=== PATIENT | female | born 1950 | race American Indian/Alaskan Native ===

== ENCOUNTER 2016-05-21 19:14 | Emergency (ER) | payer MEDICARE ==
[2016-05-21 20:03] LABS: Basophils % (Auto) 0.3 % (0.0-1.8); Eosinophils % (Auto) 1.8 % (0.0-4.3); Hematocrit 37.2 % (30.3-42.9); Hemoglobin 11.8 gm/dl (10.1-14.3); Mean Corpuscular HGB Conc 32 % (30-34); Mean Corpuscular Hemoglobin 30 pg (28-32); Mean Corpuscular Volume 94 fl (79-97); Platelet Count 255 K/mm3 (140-440); Red Blood Count 3.94 M/mm3 (3.65-5.03); Red Cell Distribution Width 13.7 % (13.2-15.2); White Blood Count 11.5 K/mm3 (4.5-11.0)
[2016-05-21 20:17] LABS: BUN/Creatinine Ratio 14.16; Calcium 9.2 mg/dL (8.4-10.2); Chloride 103.4 mmol/L (98-107); Potassium 4.7 mmol/L (3.6-5.0)
--- NOTE | 2016-05-21 23:06 | Cat Scan Report ---
FINAL REPORT PROCEDURE: CT HEAD/BRAIN WO CON TECHNIQUE: Computerized tomography of the head was performed without contrast material. HISTORY: Weakness COMPARISON: 05/29/2015 FINDINGS: Skull and scalp: Normal. Paranasal sinuses: Mild opacification of the ethmoid sinuses.. Ventricles and subarachnoid spaces: Normal. Cerebrum: No evidence of hemorrhage, acute infarction or mass. Minimal atrophy is noted. 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 Cerebellum and brainstem: No evidence of hemorrhage, acute infarction or mass. Vasculature: Normal. Comments: None. IMPRESSION: There is no evidence of an acute intracranial process. Minimal atrophy.
[2016-05-22 00:11] LABS: Bilirubin,Urine NEG (Negative); Blood,Urine NEG (Negative); Ketones,Urine NEG (Negative); Leukocyte Esterase,Urine NEG (Negative); Nitrite,Urine NEG (Negative); Urobilinogen,Urine < 2.0 mg/dL (<2.0); WBC,Urine < 1.0 /HPF (0.0-6.0)
--- NOTE | 2016-05-22 00:48 | Emergency Department Report ---
- General Chief complaint: Weakness Stated complaint: WEAKNESS IN LEGS Time Seen by Provider: 05/21/16 23:23 Source: patient Mode of arrival: Ambulatory Limitations: No Limitations - History of Present Illness Initial comments: 66-year-old female with a past medical history of COPD, TIA, hypertension, G6PD deficiency, and high cholesterol presents to the hospital complaining of dizziness and bilateral low extremity pain and weakness. Patient states the dizziness is chronic and ongoing. She dances a spinning sensation more lying supine. She has been admitted here in the past for the same and was diagnosed with vestibular migraine by the neurologist. Patient states she is currently receiving outpatient neurology evaluation but is waiting to be able to afford the outpatient upright MRI since she is unable to lay supine for an extended time due to dizzy/spinning sensation. For the past 3 days patient has been experiencing lower back pain, bilateral knee pain, feel like her legs were giving out while ambulating. Patient has a history of previous back injury with right-sided sciatica. Patient denies numbness or paresthesias to lower extremities but states she has intermittent upper extremity paresthesias. Patient also expressed that she is anxious due to several events in her life. Patient has chronic bladder incontinence since she receives her hysterectomy reports no change. Pain to lower back and bilateral knees described as aching and worse with movement and palpation. Moderate in intensity. PMD: non currently - Related Data Home Medications Medication Instructions Recorded Confirmed Last Taken Valsartan [Diovan] 80 mg PO DAILY 05/29/15 09/17/15 Unknown Previous Rx's Medication Instructions Recorded Last Taken Type Fluconazole [Diflucan TAB] 150 mg PO ONCE #2 tablet 09/17/15 Unknown Rx Pantoprazole [Protonix] 40 mg PO QDAY #30 tablet 10/30/15 Unknown Rx Acetaminophen [Acetaminophen TAB] 500 mg PO Q4HR PRN #30 tablet 05/22/16 Unknown Rx Allergies Allergy/AdvReac Type Severity Reaction Status Date / Time acetaminophen [From Percocet] Allergy Anaphylaxis Verified 05/29/15 13:24 aspirin Allergy Rash Verified 05/29/15 13:24 ciprofloxacin [From Cipro] Allergy Dizziness Verified 05/29/15 13:24 ciprofloxacin HCl Allergy Dizziness Verified 05/29/15 13:24 [From Cipro] levofloxacin [From Levaquin] Allergy Dizziness Verified 10/30/15 11:38 morphine Allergy Itching Verified 05/29/15 13:24 oxycodone HCl [From Percocet] Allergy Anaphylaxis Verified 05/29/15 13:24 Sulfa (Sulfonamide Allergy Seizure Verified 05/29/15 13:24 Antibiotics) ED Review of Systems ROS: Stated complaint: WEAKNESS IN LEGS Other details as noted in HPI Comment: All other systems reviewed and negative Other: Constitutional: No fevers chills Eyes: No eye pain visual changes ENT: No ear pain or throat pain Neck: Denies pain Respiratory: Denies cough wheezing shortness of breath Cardiovascular: Denies chest pain, palpitations, syncope GI: Denies abdominal pain, nausea, vomiting, diarrhea : Denies dysuria Musculoskeletal: as per hpi Skin: Denies rash, lesions, erythema Neurologic: Denies headache Psychiatric: Denies suicidal ideation, hallucinations ED Past Medical Hx - Past Medical History Hx Hypertension: Yes Hx CVA: Yes (TIA) Hx Congestive Heart Failure: No Hx Diabetes: No Hx Renal Disease: Yes Hx Asthma: No Hx COPD: Yes Additional medical history: glaucoma. high cholesterol. G6PD. heart murmur/ MVP. OBESITY - Surgical History Hx Cholecystectomy: Yes Additional Surgical History: Hysterectomy. - Social History Smoking Status: Former Smoker Substance Use Type: None - Medications Home Medications: Home Medications Medication Instructions Recorded Confirmed Last Taken Type Valsartan [Diovan] 80 mg PO DAILY 05/29/15 09/17/15 Unknown History Fluconazole [Diflucan TAB] 150 mg PO ONCE #2 tablet 09/17/15 Unknown Rx Pantoprazole [Protonix] 40 mg PO QDAY #30 tablet 10/30/15 Unknown Rx Acetaminophen [Acetaminophen TAB] 500 mg PO Q4HR PRN #30 tablet 05/22/16 Unknown Rx ED Physical Exam - General Limitations: No Limitations - Other Other exam information: General: No limitations, patient is alert in no acute distress Head exam: Atraumatic, normocephalic Eyes exam: Normal appearance ENT: Moist mucous membrane, normal oropharynx Neck exam: Normal inspection, full range of motion, no meningismus nontender Respiratory exam: Clear to auscultation bilateral, no wheezes, rales, crackles Cardiovascular: Normal rate and rhythm, normal heart sounds Abdomen: Soft, nondistended, and nontender, with normal bowel sounds, no rebound, or guarding Extremity: Full range of motion normal inspection no deformity Back: Normal Inspection, full range of motion, mild generalized lower back tenderness Neurologic: Alert, oriented x3, cranial nerves intact, patient has pain with extension of the right leg at the hip. However she is able to hold up each leg against gravity and has equal foot dorsiflexion. Sensation grossly intact and equal. 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 Patient seems to ambulate in the ER without difficulty no unsteady gait noted the patient states she feels like her legs are going to buckle Psychiatric: normal affect, normal mood Skin: Warm, dry, intact ED Course Vital Signs 05/21/16 05/21/16 05/22/16 19:21 23:57 02:07 Temperature 98.9 F Pulse Rate 62 78 86 Respiratory 18 18 18 Rate Blood Pressure 174/110 Blood Pressure 160/85 143/64 [Left] O2 Sat by Pulse 98 98 99 Oximetry - Reevaluation(s) Reevaluation #1: 05/22/16 00:49 Patient offer medication for pain as well as meclizine for vertigo. Patient declined both stating she is afraid to take medications because they often make her feel worse. She states the pain and discomfort is tolerable at this time ED Medical Decision Making - Lab Data Result diagrams: 05/21/16 19:45 05/21/16 19:45 Lab Results 05/21/16 05/21/16 05/21/16 Range/Units 19:45 19:45 20:00 WBC 11.5 H (4.5-11.0) K/mm3 RBC 3.94 (3.65-5.03) M/mm3 Hgb 11.8 (10.1-14.3) gm/dl Hct 37.2 (30.3-42.9) % MCV 94 (79-97) fl MCH 30 (28-32) pg MCHC 32 (30-34) % RDW 13.7 (13.2-15.2) % Plt Count 255 (140-440) K/mm3 Lymph % (Auto) 34.7 (13.4-35.0) % [place] % (Auto) 9.5 H (0.0-7.3) % Eos % (Auto) 1.8 (0.0-4.3) % Baso % (Auto) 0.3 (0.0-1.8) % Lymph # 4.0 (1.2-5.4) K/mm3 [place] # 1.1 H (0.0-0.8) K/mm3 Eos # 0.2 (0.0-0.4) K/mm3 Baso # 0.0 (0.0-0.1) K/mm3 Seg Neutrophils % 53.7 (40.0-70.0) % Seg Neutrophils # 6.1 (1.8-7.7) K/mm3 Sodium 140 (137-145) mmol/L Potassium 4.7 (3.6-5.0) mmol/L Chloride 103.4 (98-107) mmol/L Carbon Dioxide 22 (22-30) mmol/L Anion Gap 19 mmol/L BUN 17 (7-17) mg/dL Creatinine 1.2 (0.7-1.2) mg/dL Estimated GFR 55 ml/min BUN/Creatinine Ratio 14.16 % Glucose 125 H (65-100) mg/dL Calcium 9.2 (8.4-10.2) mg/dL Magnesium 1.9 (1.7-2.3) mg/dL Urine Color (Yellow) Urine Turbidity (Clear) Urine pH (5.0-7.0) Ur Specific [place] (1.003-1.030) Urine Protein (Negative) mg/dL Urine Glucose (UA) (Negative) mg/dL Urine Ketones (Negative) mg/dL Urine Blood (Negative) Urine Nitrite (Negative) Urine Bilirubin (Negative) Urine Urobilinogen (<2.0) mg/dL Ur Leukocyte Esterase (Negative) Urine WBC (Auto) (0.0-6.0) /HPF Urine RBC (Auto) (0.0-6.0) /HPF U Epithel Cells (Auto) (0-13.0) /HPF 05/21/16 Range/Units 23:46 WBC (4.5-11.0) K/mm3 RBC (3.65-5.03) M/mm3 Hgb (10.1-14.3) gm/dl Hct (30.3-42.9) % MCV (79-97) fl MCH (28-32) pg MCHC (30-34) % RDW (13.2-15.2) % Plt Count (140-440) K/mm3 Lymph % (Auto) (13.4-35.0) % [place] % (Auto) (0.0-7.3) % Eos % (Auto) (0.0-4.3) % Baso % (Auto) (0.0-1.8) % Lymph # (1.2-5.4) K/mm3 [place] # (0.0-0.8) K/mm3 Eos # (0.0-0.4) K/mm3 Baso # (0.0-0.1) K/mm3 Seg Neutrophils % (40.0-70.0) % Seg Neutrophils # (1.8-7.7) K/mm3 Sodium (137-145) mmol/L Potassium (3.6-5.0) mmol/L Chloride (98-107) mmol/L Carbon Dioxide (22-30) mmol/L Anion Gap mmol/L BUN (7-17) mg/dL Creatinine (0.7-1.2) mg/dL Estimated GFR ml/min BUN/Creatinine Ratio % Glucose (65-100) mg/dL Calcium (8.4-10.2) mg/dL Magnesium (1.7-2.3) mg/dL Urine Color Straw (Yellow) Urine Turbidity Clear (Clear) Urine pH 6.0 (5.0-7.0) Ur Specific [place] 1.011 (1.003-1.030) Urine Protein 100 mg/dl (Negative) mg/dL Urine Glucose (UA) Neg (Negative) mg/dL Urine Ketones Neg (Negative) mg/dL Urine Blood Neg (Negative) Urine Nitrite Neg (Negative) Urine Bilirubin Neg (Negative) Urine Urobilinogen < 2.0 (<2.0) mg/dL Ur Leukocyte Esterase Neg (Negative) Urine WBC (Auto) < 1.0 (0.0-6.0) /HPF Urine RBC (Auto) 2.0 (0.0-6.0) /HPF U Epithel Cells (Auto) 1.0 (0-13.0) /HPF - EKG Data -: EKG Interpreted by Me (sinus rhythm with PVCs rate 91 ) - Radiology Data Radiology results: report reviewed CT head: No acute findings. CT L spine: Mild arthritis and DJD no acute findings - Medical Decision Making No acute abnormality identified. Despite patient's complaint weakness no objective weakness has been found and it appears the patient mainly complains of pain and chronic dizziness. Patient has multiple allergies and is apprehensive about trying medication. She states she is not allergic to acetaminophen as stated on her listed allergies on the record. She is alert however, allergic to Percocet. Tylenol with the recommended to be taken at home as needed and continued outpatient follow-up with neurology in a primary care doctor will be encouraged. - Differential Diagnosis arthritis, sciatica, herniated disc, paresthesias, radiculopathy Critical Care Time: No Critical care attestation.: If time is entered above; I have spent that time in minutes in the direct care of this critically ill patient, excluding procedure time. ED Disposition Clinical Impression: Dizziness, Lumbar pain Radiculopathy Qualifiers: Spinal region: unspecified Qualified Code(s): M54.10 - Radiculopathy, site unspecified Arthralgia Qualifiers: Joint pain location: unspecified Qualified Code(s): M25.50 - Pain in unspecified joint Disposition: DISCHARGED TO HOME OR SELFCARE Is pt being admited?: No Condition: Stable Instructions: Arthralgia (ED), Back Pain (ED), Lumbar Radiculopathy (ED) Additional Instructions: Take the Tylenol as needed for pain. Return if symptoms worsen. Follow-up with the primary care doctor provided and urine neurologist for further workup and treatment. Prescriptions: Acetaminophen [Acetaminophen TAB] 500 mg PO Q4HR PRN #30 tablet PRN Reason: Pain Referrals: PEDRO MORGAN MD [Staff Physician] - 3-5 Days (primary care doctor) Time of Disposition: 02:49
--- NOTE | 2016-05-22 02:06 | Cat Scan Report ---
FINAL REPORT PROCEDURE: CT LUMBAR SPINE WO CON TECHNIQUE: Computerized axial tomography of the lumbar spine was performed from T12 to the sacrum without contrast material. HISTORY: lower back pain, b/l leg weakness COMPARISON: No prior studies are available for comparison. FINDINGS: L1-2: No significant abnormality. L2-3: No significant abnormality. L3-4: No significant abnormality. L4-5: No significant abnormality. L5-S1: No significant abnormality. Other: The alignment is normal. No acute fracture or dislocation of the lumbar spine. The spinal canal is adequate at all levels.. IMPRESSION: There is no evidence of acute fracture or dislocation of the lumbar spine. Mild arthritis and degenerative disc changes.
[2016-05-22 02:08] VITALS: BP 143/64
--- NOTE | 2016-05-22 03:21 | Emergency Department Report ---
Blank Doc - Documentation Documentation: I am unable to update initial chart at this time due to metastatic issue. I discontinued original intention to prescribe Tylenol given patient's history G6PD deficiency. I'm unsure patient is able to tolerate this medication. Some sources state that it is a low risk medication other sources say that his contraindication should be avoided. Pt states she has taken Tylenol as needed in the past without issues.
== END 2016-05-22 03:53 | disposition home or self-care (01) ==
LOC: ED 19:14
DX: M54.10 Radiculopathy, site unspecified (principal); R42 Dizziness and giddiness; M54.5 Low back pain; M25.50 Pain in unspecified joint; I10 Essential (primary) hypertension; E78.00 Pure hypercholesterolemia, unspecified; E66.9 Obesity, unspecified; J44.9 Chronic obstructive pulmonary disease, unspecified; Z88.6 Allergy status to analgesic agent; Z88.5 Allergy status to narcotic agent; Z88.2 Allergy status to sulfonamides; Z88.1 Allergy status to other antibiotic agents; Z86.73 Personal history of transient ischemic attack (TIA), and cerebral infarction without residual deficits; Z87.891 Personal history of nicotine dependence
CPT/HCPCS: 36415; 70450; 72131; 80048; 81001; 83735; 85025; 93005; 93010

== ENCOUNTER 2016-05-25 22:44 | Emergency (ER) | payer MEDICARE ==
[2016-05-25 23:39] LABS: Basophils % (Auto) 0.4 % (0.0-1.8); Eosinophils % (Auto) 0.5 % (0.0-4.3); Hematocrit 36.7 % (30.3-42.9); Hemoglobin 11.8 gm/dl (10.1-14.3); Mean Corpuscular HGB Conc 32 % (30-34); Mean Corpuscular Hemoglobin 30 pg (28-32); Mean Corpuscular Volume 93 fl (79-97); Platelet Count 252 K/mm3 (140-440); Red Blood Count 3.93 M/mm3 (3.65-5.03); Red Cell Distribution Width 13.5 % (13.2-15.2); White Blood Count 9.1 K/mm3 (4.5-11.0)
[2016-05-25 23:52] LABS: Albumin 4.2 g/dL (3.9-5); Albumin/Globulin Ratio 1.4 %; BUN/Creatinine Ratio 14.16; Bilirubin,Total 0.2 mg/dL (0.1-1.2); Calcium 9.3 mg/dL (8.4-10.2); Chloride 105.5 mmol/L (98-107); Potassium 4.3 mmol/L (3.6-5.0); Total Protein 7.3 g/dL (6.3-8.2)
[2016-05-26 07:55] VITALS: BP 184/86
--- NOTE | 2016-05-26 09:37 | Emergency Department Report ---
ED General Adult HPI - General Chief complaint: High BP Stated complaint: POSS HIGH BP Time Seen by Provider: 05/26/16 08:24 Source: patient, RN notes reviewed, old records reviewed Mode of arrival: Ambulatory Limitations: No Limitations - History of Present Illness Initial comments: This is a 66-year-old female. I have evaluated her in the past. Patient has a history of glaucoma and the left eye, blind in left eye, possible COPD, hypertension, high cholesterol, possible mitral valve prolapse, G6PD. Patient has been presumptively diagnosed by neurology with postmenopausal migraine with aura versus vestibular migraine. Patient presents to the ER with numerous chronic complaints. She complains of sensation of feeling like her blood pressure is elevated. She reports consuming garlic, vinegar, coffee. She admits to "chest fluttering." These symptoms are intermittent, and patient states no exacerbating or relieving factors. There is no extremity weakness, there is no chest pain, there is no vomiting, no irritative or obstructive urinary symptoms. Patient denies urinary and/or fecal retention/incontinence. She cannot describe exacerbating or relieving factors. She supposed to have an outpatient stand up MRI as ordered by an outpatient neurology specialist, but she cannot afford it. -: Gradual Severity scale (0 -10): 0 Associated Symptoms: malaise - Related Data Home Medications Medication Instructions Recorded Confirmed Last Taken Valsartan [Diovan] 80 mg PO DAILY 05/29/15 09/17/15 Unknown Previous Rx's Medication Instructions Recorded Last Taken Type Fluconazole [Diflucan TAB] 150 mg PO ONCE #2 tablet 09/17/15 Unknown Rx Pantoprazole [Protonix] 40 mg PO QDAY #30 tablet 10/30/15 Unknown Rx Allergies Allergy/AdvReac Type Severity Reaction Status Date / Time acetaminophen [From Percocet] Allergy Anaphylaxis Verified 05/29/15 13:24 aspirin Allergy Rash Verified 05/29/15 13:24 ciprofloxacin [From Cipro] Allergy Dizziness Verified 05/29/15 13:24 ciprofloxacin HCl Allergy Dizziness Verified 05/29/15 13:24 [From Cipro] levofloxacin [From Levaquin] Allergy Dizziness Verified 10/30/15 11:38 morphine Allergy Itching Verified 05/29/15 13:24 oxycodone HCl [From Percocet] Allergy Anaphylaxis Verified 05/29/15 13:24 Sulfa (Sulfonamide Allergy Seizure Verified 05/29/15 13:24 Antibiotics) ED Review of Systems ROS: Stated complaint: POSS HIGH BP Other details as noted in HPI Constitutional: malaise. denies: fever Eyes: denies: vision change ENT: denies: epistaxis Respiratory: see HPI Cardiovascular: other (fluttering) Gastrointestinal: denies: vomiting Genitourinary: denies: frequency Musculoskeletal: denies: back pain Skin: denies: lesions Neurological: as per HPI Psychiatric: anxiety ED Past Medical Hx - Past Medical History Previous Medical History?: Yes Hx Hypertension: Yes Hx CVA: Yes (TIA) Hx Congestive Heart Failure: No Hx Diabetes: No Hx Renal Disease: Yes Hx Asthma: No Hx COPD: Yes Additional medical history: glaucoma. high cholesterol. G6PD. heart murmur/ MVP. OBESITY - Surgical History Past Surgical History?: Yes Hx Cholecystectomy: Yes Additional Surgical History: Hysterectomy. - Social History Smoking Status: Never Smoker Substance Use Type: None - Medications Home Medications: Home Medications Medication Instructions Recorded Confirmed Last Taken Type Valsartan [Diovan] 80 mg PO DAILY 05/29/15 09/17/15 Unknown History Fluconazole [Diflucan TAB] 150 mg PO ONCE #2 tablet 09/17/15 Unknown Rx Pantoprazole [Protonix] 40 mg PO QDAY #30 tablet 10/30/15 Unknown Rx ED Physical Exam - General Limitations: No Limitations General appearance: alert, in no apparent distress - Head Head exam: Present: atraumatic, normocephalic - Eye Eye exam: Present: normal appearance, EOMI, other (visual acuity is intact to finger counting, color perception, rating at a close distance.). Absent: nystagmus - ENT ENT exam: Present: normal exam, normal orophraynx, mucous membranes moist, normal external ear exam - Neck Neck exam: Present: normal inspection, full ROM. Absent: tenderness, meningismus - Respiratory Respiratory exam: Present: normal lung sounds bilaterally. Absent: respiratory distress, wheezes, rales, rhonchi, stridor, chest wall tenderness - Cardiovascular Cardiovascular Exam: Present: regular rate, normal rhythm, normal heart sounds. Absent: bradycardia, tachycardia, irregular rhythm, systolic murmur, diastolic murmur, rubs, gallop - GI/Abdominal GI/Abdominal exam: Present: soft, normal bowel sounds. Absent: distended, tenderness, guarding, rebound, rigid - Extremities Exam Extremities exam: Present: normal inspection - Back Exam Back exam: Present: normal inspection - Neurological Exam Neurological exam: Present: alert, oriented X3, other (Extraocular movements intact. Tongue midline. No facial droop. Facial sensation intact to light touch in the V1, V2, V3 distribution bilaterally. 5 and 5 strength in 4 extremities.. Sensation is intact to light touch in 4 extremities.) - Psychiatric Psychiatric exam: Present: anxious - Skin Skin exam: Present: warm, dry, intact, normal color. Absent: rash ED Course Vital Signs 05/25/16 05/26/16 05/26/16 22:48 04:48 07:51 Temperature 98.9 F 98.4 F Pulse Rate 96 H 75 53 L Respiratory 20 16 10 L Rate Blood Pressure 180/95 159/93 Blood Pressure 184/86 [Left] O2 Sat by Pulse 100 100 100 Oximetry - Reevaluation(s) Reevaluation #1: 05/26/16 09:46 Differential diagnosis: Anxiety, chronic hypertension, chronic dizziness, electrolyte derangement, medical reassurance Assessment and plan: 66-year-old female with multiple chronic complaints, whom I have evaluated in the past. Patient recently evaluated at this hospital for other nonspecific complaints. Objectively speaking on her physical exam, she is a GCS of 15, NIH score of 0, walks with a steady gait. Her electrolytes are unremarkable. Recently had a negative urinalysis at this facility. i dont believe she requires further emergent imaging at this time, as she recently had objective imaging at this facility. She is reassured, she is instructed to follow-up with her outpatient primary care doctor and neurology specialist. Her elevated blood pressure is appreciated, this is chronic, and she can follow up with her primary care doctor for this as well. 05/26/16 09:47 Reevaluation #2: 05/26/16 09:51 as per the [facility] clinical policy on asymptomatic hypertension: Initiating treatment for asymptomatic hypertension in the ED is not necessary when patients have follow-up; (2) Rapidly lowering blood pressure in asymptomatic patients in the ED is unnecessary and may be harmful in some patients; (3) When ED treatment for asymptomatic hypertension is initiated, blood pressure management should attempt to gradually lower blood pressure and should not be expected to be normalized during the initial ED visit. ED Medical Decision Making - Lab Data Result diagrams: 05/25/16 23:18 05/25/16 23:18 Vital Signs 05/25/16 05/26/16 05/26/16 22:48 04:48 07:51 Temperature 98.9 F 98.4 F Pulse Rate 96 H 75 53 L Respiratory 20 16 10 L Rate Blood Pressure 180/95 159/93 Blood Pressure 184/86 [Left] O2 Sat by Pulse 100 100 100 Oximetry Lab Results 05/25/16 05/25/16 Range/Units 23:18 23:18 WBC 9.1 (4.5-11.0) K/mm3 RBC 3.93 (3.65-5.03) M/mm3 Hgb 11.8 (10.1-14.3) gm/dl Hct 36.7 (30.3-42.9) % MCV 93 (79-97) fl MCH 30 (28-32) pg MCHC 32 (30-34) % RDW 13.5 (13.2-15.2) % Plt Count 252 (140-440) K/mm3 Lymph % (Auto) 20.2 (13.4-35.0) % [place] % (Auto) 8.0 H (0.0-7.3) % Eos % (Auto) 0.5 (0.0-4.3) % Baso % (Auto) 0.4 (0.0-1.8) % Lymph # 1.8 (1.2-5.4) K/mm3 [place] # 0.7 (0.0-0.8) K/mm3 Eos # 0.0 (0.0-0.4) K/mm3 Baso # 0.0 (0.0-0.1) K/mm3 Seg Neutrophils % 70.9 H (40.0-70.0) % Seg Neutrophils # 6.5 (1.8-7.7) K/mm3 Sodium 142 (137-145) mmol/L Potassium 4.3 (3.6-5.0) mmol/L Chloride 105.5 (98-107) mmol/L Carbon Dioxide 20 L (22-30) mmol/L Anion Gap 21 mmol/L BUN 17 (7-17) mg/dL Creatinine 1.2 (0.7-1.2) mg/dL Estimated GFR 55 ml/min BUN/Creatinine Ratio 14.16 % Glucose 121 H (65-100) mg/dL Calcium 9.3 (8.4-10.2) mg/dL Total Bilirubin 0.2 (0.1-1.2) mg/dL AST 12 (5-40) units/L ALT 11 (7-56) units/L Alkaline Phosphatase 65 (35-129) units/L Total Protein 7.3 (6.3-8.2) g/dL Albumin 4.2 (3.9-5) g/dL Albumin/Globulin Ratio 1.4 % - EKG Data -: EKG Interpreted by Me - EKG Data When compared to previous EKG there are: no significant change 05/26/16 09:49 and normal sinus, 84 bpm, premature ventricular contractions, nonspecific T-wave abdomen to, motion artifact, abnormal EKG, not morphologically consistent with STEMI, appears unchanged when compared to prior EKG from 05/21/2016. Critical care attestation.: If time is entered above; I have spent that time in minutes in the direct care of this critically ill patient, excluding procedure time. ED Disposition Clinical Impression: HTN (hypertension) Disposition: DISCHARGED TO HOME OR SELFCARE Is pt being admited?: No Does the pt Need Aspirin: No Condition: Poor Instructions: Hypertension (ED) Additional Instructions: Continue current outpatient medications. Follow-up with their primary care doctor within the next week. Elevated blood pressure. If checking blood pressure at home, make certain to check it at the same time each day, preferably at night, or in the morning. Avoid consumption of caffeinated substances. Follow-up with her outpatient neurologist within the next week. Long-term complications of hypertension/elevated blood pressure include stroke, heart attack, disability, , paralysis, permanent loss of quality of life. Therefore, it is very important to follow-up with her outpatient primary care doctor for further management and evaluation of her elevated blood pressure. Please return to the ER right away with new pain, worsening pain, migration of pain, fevers, chills, intractable nausea or vomiting, inability to tolerate liquid feeds. Dr. Maximino Sarah is a local primary care doctor. I have also referred to any of our local neurology specialist; these include Dr. Dumont and Marek Referrals: MAXIMINO SARAH MD [Primary Care Provider] - 3-5 Days MATTHEW DUMONT MD [Staff Physician] - 3-5 Days EJ RAMIREZ MD [Staff Physician] - 3-5 Days
== END 2016-05-26 10:14 | disposition home or self-care (01) ==
LOC: ED 22:44
DX: I10 Essential (primary) hypertension (principal); E78.00 Pure hypercholesterolemia, unspecified; Z88.6 Allergy status to analgesic agent; Z88.2 Allergy status to sulfonamides; Z88.1 Allergy status to other antibiotic agents; Z88.8 Allergy status to other drugs, medicaments and biological substances; Z86.73 Personal history of transient ischemic attack (TIA), and cerebral infarction without residual deficits; Z90.710 Acquired absence of both cervix and uterus
CPT/HCPCS: 36415; 80053; 85025; 93005; 93010; 99283

== ENCOUNTER 2016-09-07 18:37 | Emergency (ER) | payer MEDICARE ==
--- NOTE | 2016-09-07 20:19 | Cat Scan Report ---
FINAL REPORT EXAM: CT HEAD/BRAIN WO CON HISTORY: epe pain/headache TECHNIQUE: CT head without contrast PRIORS: Comparison is dated May 21, 2016 FINDINGS: No acute intra-axial or extra-axial hemorrhage is identified. There is no evidence of midline shift or mass effect. The ventricles and sulci are within normal limits. Simon-white matter differentiation is intact. No acute parenchymal abnormalities seen. There are patchy and confluent hypodensities within the supratentorial white matter. Bony calvarium is grossly intact. Visualized portions of the mastoids and paranasal sinuses are unremarkable. IMPRESSION: Chronic small vessel white matter ischemic change No acute intracranial findings
[2016-09-08 03:21] LABS: Basophils % (Auto) 0.4 % (0.0-1.8); Eosinophils % (Auto) 2.2 % (0.0-4.3); Hematocrit 33.9 % (30.3-42.9); Mean Corpuscular HGB Conc 33 % (30-34); Mean Corpuscular Hemoglobin 30 pg (28-32); Mean Corpuscular Volume 93 fl (79-97); Platelet Count 211 K/mm3 (140-440); Red Blood Count 3.63 M/mm3 (3.65-5.03); Red Cell Distribution Width 13.2 % (13.2-15.2); White Blood Count 9.7 K/mm3 (4.5-11.0)
[2016-09-08 03:55] LABS: BUN/Creatinine Ratio 13.84; Calcium 9.1 mg/dL (8.4-10.2); Chloride 107.3 mmol/L (98-107)
--- NOTE | 2016-09-08 05:13 | Emergency Department Report ---
HPI - General Chief Complaint: Eye Problems Time Seen by Provider: 09/08/16 02:47 - HPI HPI: This is a 66-year-old Afro-[place] female presents the emergency department with a complaint of some left eye pain that started Wednesday morning, about 24 hours ago. Patient says that she will also get pain in the left eye and she opens the right eye or it is exposed to light. 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 She has a past medical history as well of COPD, TIA, hypertension, high cholesterol, G6PD. She does not currently have any gps navigation installer or primary care physician. She is not taken anything for her symptoms prior to presentation. She denies any headache, slurred speech, fever, nausea, vomiting. ED Past Medical Hx - Past Medical History Previous Medical History?: Yes Hx Hypertension: Yes Hx CVA: Yes (TIA) Hx Congestive Heart Failure: No Hx Diabetes: No Hx Renal Disease: Yes Hx Asthma: No Hx COPD: Yes Additional medical history: glaucoma. high cholesterol. G6PD. heart murmur/ MVP. OBESITY - Surgical History Past Surgical History?: Yes Hx Cholecystectomy: Yes Additional Surgical History: Hysterectomy. - Social History Smoking Status: Former Smoker Substance Use Type: None - Medications Home Medications: Home Medications Medication Instructions Recorded Confirmed Last Taken Type Valsartan [Diovan] 80 mg PO DAILY 05/29/15 09/17/15 Unknown History Fluconazole [Diflucan TAB] 150 mg PO ONCE #2 tablet 09/17/15 Unknown Rx Pantoprazole [Protonix] 40 mg PO QDAY #30 tablet 10/30/15 Unknown Rx ED Review of Systems ROS: Stated complaint: LEFT EYE PAIN/PRESSURE/SWELLING Other details as noted in HPI Comment: All other systems reviewed and negative Constitutional: denies: chills, fever Eyes: eye pain. denies: eye discharge, vision change ENT: denies: ear pain, throat pain Respiratory: denies: cough, shortness of breath, wheezing Cardiovascular: denies: chest pain, palpitations Gastrointestinal: denies: abdominal pain, nausea, diarrhea Genitourinary: denies: urgency, dysuria, discharge Musculoskeletal: denies: back pain, joint swelling, arthralgia Skin: denies: rash, lesions Neurological: denies: headache, weakness, paresthesias Physical Exam - Physical Exam Vital Signs: Vital Signs 09/07/16 19:18 Temperature 98.4 F Pulse Rate 78 Blood Pressure 161/92 O2 Sat by Pulse 98 Oximetry Physical Exam: GENERAL: The patient is well-developed well-nourished. HEENT: Normocephalic. Atraumatic. Extraocular motions are intact. Patient has moist mucous membranes. Right pupil is reactive to light. Visual acuity: OD 20/40. Patient is blind in left eye. There is a small cyst seen to the conjunctiva in the superior region of the left eye. Left pupil is opacified but is chronic. NECK: Supple. Trachea is midline. CHEST/LUNGS: Clear to auscultation. There is no respiratory distress noted. HEART/CARDIOVASCULAR: Regular. There is no tachycardia. There is no gallop rub or murmur. ABDOMEN: Abdomen is soft, nontender. Patient has normal bowel sounds. There is no abdominal distention. SKIN: There is no rash. There is no edema. There is no diaphoresis. NEURO: The patient is awake, alert, and oriented. The patient is cooperative. The patient has no focal neurologic deficits. The patient has normal speech. MUSCULOSKELETAL: There is no tenderness or deformity. There is no limitation range of motion. There is no evidence of acute injury. ED Course Vital Signs 09/07/16 19:18 Temperature 98.4 F Pulse Rate 78 Blood Pressure 161/92 O2 Sat by Pulse 98 Oximetry ED Medical Decision Making - Lab Data Result diagrams: 09/08/16 03:10 09/08/16 03:10 - Radiology Data Radiology results: report reviewed CT of the head does not show any acute process including no hemorrhage, mass, shift, diffuse edema or skull fracture. - Medical Decision Making 66-year-old female presents with pain in the left eye that is chronically blind since 1999. This associated with a mild headache. CT of the head did not show any bleed, shift, mass or any acute process. Patient had 20/40 visual acuity in the right eye. She has a typical presentation in which her blind left eye has pain within the right eye is open and exposed to light. Otherwise she has no other deficits seen. Labs are mostly unremarkable. ESR was low and therefore low suspicion for any type of atypical temporal arteritis. No signs of infection. Vital signs stable throughout her ED course. Patient will be referred to ophthalmology and primary care. - Differential Diagnosis conjunctivitis, blepharitis, migraine, temporal arteritis Critical Care Time: No Critical care attestation.: If time is entered above; I have spent that time in minutes in the direct care of this critically ill patient, excluding procedure time. ED Disposition Clinical Impression: Pain, eye, left Hypertension Qualifiers: Hypertension type: essential hypertension Qualified Code(s): I10 - Essential ( primary) hypertension CKD (chronic kidney disease) Qualifiers: Chronic kidney disease stage: unspecified stage Qualified Code(s): N18.9 - Chronic kidney disease, unspecified Disposition: - TO HOME OR SELFCARE Is pt being admited?: No Condition: Stable Instructions: Hypertension (ED), Eye Pain (ED) Additional Instructions: Please follow-up with a primary care doctor and gps navigation installer as soon as possible. Return to the emergency department with any worsening of your symptoms or any acute distress. Referrals: [facility] [Outside] - 3-5 Days ETHAN SALAS MD [Staff Physician] - 3-5 Days ROBERT BAEZ MD [Staff Physician] - 3-5 Days PRIMARY MD YAS [Primary Care Provider] - 3-5 Days SIS HERNANDEZ MD [Staff Physician] - 3-5 Days
[2016-09-08 07:11] VITALS: BP 132/64
== END 2016-09-08 08:19 | disposition home or self-care (01) ==
LOC: ED 18:37
DX: H57.12 Ocular pain, left eye (principal); I12.9 Hypertensive chronic kidney disease with stage 1 through stage 4 chronic kidney disease, or unspecified chronic kidney disease; N18.6 End stage renal disease; Z86.73 Personal history of transient ischemic attack (TIA), and cerebral infarction without residual deficits; E78.00 Pure hypercholesterolemia, unspecified; Z87.891 Personal history of nicotine dependence; H40.9 Unspecified glaucoma; Z88.6 Allergy status to analgesic agent; Z88.1 Allergy status to other antibiotic agents; Z88.8 Allergy status to other drugs, medicaments and biological substances
CPT/HCPCS: 36415; 70450; 80048; 84443; 85025; 85652

== ENCOUNTER 2016-09-10 09:18 | Emergency (ER) | payer MEDICARE ==
[2016-09-10 14:36] VITALS: BP 150/85
--- NOTE | 2016-09-10 20:01 | Emergency Department Report ---
Entered by STACY LOPEZ, acting as scribe for TRISTAN MENDOZA PA. <TRISTAN MENDOZA - Last Filed: 09/10/16 19:54> ED Eye Problem HPI - General Chief complaint: Eye Problems Stated complaint: LT EYE PAIN Time Seen by Provider: 09/10/16 12:36 Source: patient Mode of arrival: Ambulatory Limitations: No Limitations - History of Present Illness Initial comments: 66 y/o female with a PMHx HTN, CVA, renal disease, COPD, high cholesterol, G6PD , heart murmur, glaucoma, and left eye blindness( x17 year) presents to the ED c /o left eye pain that began 2 days ago. Rates pain a 7/10 in severity, which she describes as throbbing in quality. Aggravated with light exposure and alleviated with darkness. Associated left eye watering, but she denies headache , numbness, tingling, facial pain, fever, chills, and chest pain. Denies any left eye trauma/injury. Notes that she usually get a shot for pain, but she states she hasn't been able to due to financial problems. Patient was seen in this ED on 09/08/2016 for similar symptoms, and she states she was not prescribed any medication due to being allergic to many. Patient secondary complaint consists of a medication of blood pressure medication, Diovan 80mg. Notes taking her last tablet of Diovan 80 mg this morning. Denies dizziness and nausea. MD chief complaint: eye pain (left) Onset/Timin -: days(s) Onset Description: awoke with symptoms Location: left eye Place: home If Injury: none Eye Symptoms: pain Severity: severe Severity scale (0 -10): 10 If Pain, Quality: throbbing Consistency: constant Associated Symptoms: none. denies: headache, neck pain, nausea/vomiting, cough , rhinorrhea, fever, shortness of breath Treatments Prior to Arrival: none - Related Data Home Medications Medication Instructions Recorded Confirmed Last Taken Valsartan [Diovan] 80 mg PO DAILY 05/29/15 09/17/15 Unknown Previous Rx's Medication Instructions Recorded Last Taken Type Fluconazole [Diflucan TAB] 150 mg PO ONCE #2 tablet 09/17/15 Unknown Rx Pantoprazole [Protonix] 40 mg PO QDAY #30 tablet 10/30/15 Unknown Rx Erythromycin [Erythromycin Ophth 1 applic OP BID #1 tube 09/10/16 Unknown Rx Oint] Ibuprofen [Motrin] 600 mg PO Q8H PRN #30 tablet 09/10/16 Unknown Rx Valsartan [Diovan] 40 mg PO BID #40 tablet 09/10/16 Unknown Rx Allergies Allergy/AdvReac Type Severity Reaction Status Date / Time acetaminophen [From Percocet] Allergy Anaphylaxis Verified 05/29/15 13:24 aspirin Allergy Rash Verified 05/29/15 13:24 ciprofloxacin [From Cipro] Allergy Dizziness Verified 05/29/15 13:24 ciprofloxacin HCl Allergy Dizziness Verified 05/29/15 13:24 [From Cipro] levofloxacin [From Levaquin] Allergy Dizziness Verified 10/30/15 11:38 morphine Allergy Itching Verified 05/29/15 13:24 oxycodone HCl [From Percocet] Allergy Anaphylaxis Verified 05/29/15 13:24 Sulfa (Sulfonamide Allergy Seizure Verified 05/29/15 13:24 Antibiotics) ED Review of Systems Comment: All other systems reviewed and negative Constitutional: no symptoms reported. denies: chills, fever Eyes: eye pain (left), eye discharge (watery left eye) Respiratory: no symptoms reported. denies: cough, orthopnea, shortness of breath, SOB with exertion, SOB at rest, stridor Cardiovascular: denies: chest pain, palpitations, edema, syncope Endocrine: no symptoms reported Gastrointestinal: denies: nausea, vomiting Musculoskeletal: denies: back pain, joint swelling, arthralgia, myalgia Skin: denies: rash, lesions Neurological: denies: headache, weakness, numbness ED Past Medical Hx - Past Medical History Previous Medical History?: Yes Hx Hypertension: Yes Hx CVA: Yes (TIA) Hx Congestive Heart Failure: No Hx Diabetes: No Hx Renal Disease: Yes Hx Asthma: No Hx COPD: Yes Additional medical history: glaucoma. high cholesterol. G6PD. heart murmur/ MVP. OBESITY, Blind in left eye - Surgical History Past Surgical History?: Yes Hx Cholecystectomy: Yes Additional Surgical History: Hysterectomy. - Social History Smoking Status: Former Smoker Substance Use Type: Prescribed - Medications Home Medications: Home Medications Medication Instructions Recorded Confirmed Last Taken Type Valsartan [Diovan] 80 mg PO DAILY 03/02/16 06/21/16 Unknown History Fluconazole [Diflucan TAB] 150 mg PO ONCE #2 tablet 09/17/15 Unknown Rx Pantoprazole [Protonix] 40 mg PO QDAY #30 tablet 10/30/15 Unknown Rx Erythromycin [Erythromycin Ophth 1 applic OP BID #1 tube 09/10/16 Unknown Rx Oint] Ibuprofen [Motrin] 600 mg PO Q8H PRN #30 tablet 09/10/16 Unknown Rx Valsartan [Diovan] 40 mg PO BID #40 tablet 09/10/16 Unknown Rx ED Physical Exam - General Limitations: No Limitations General appearance: alert, in no apparent distress - Head Head exam: Present: atraumatic, normocephalic - Eye Eye exam: Present: conjunctival injection (left sclera is erythmatous), periorbital tenderness (left eye), other (left eye TTP with watery discharge). Absent: PERRL (patient is legally blind in left eye), EOMI (patient is legally blind in left eye), scleral icterus, periorbital swelling Pupils: Present: normal accommodation - Expanded Eye Exam Expanded Pupils: Regular, Round: Bilateral Sclera/Conjunctival: Normal Inspection: Right, Injection: Left - ENT ENT exam: Present: normal exam, mucous membranes moist - Neck Neck exam: Present: normal inspection, full ROM. Absent: tenderness, meningismus, lymphadenopathy - Respiratory Respiratory exam: Present: normal lung sounds bilaterally, decreased breath sounds. Absent: wheezes, rales, rhonchi, stridor - Cardiovascular Cardiovascular Exam: Present: regular rate, normal rhythm. Absent: systolic murmur, diastolic murmur, rubs, gallop - GI/Abdominal GI/Abdominal exam: Present: soft, normal bowel sounds - Extremities Exam Extremities exam: Present: normal inspection - Back Exam Back exam: Present: normal inspection - Neurological Exam Neurological exam: Present: alert, oriented X3 - Psychiatric Psychiatric exam: Present: normal affect, normal mood - Skin Skin exam: Present: warm, dry, intact. Absent: rash ED Course Vital Signs 09/10/16 09/10/16 09:24 14:34 Temperature 98.1 F Pulse Rate 77 59 L Respiratory 20 16 Rate Blood Pressure 154/80 Blood Pressure 150/85 [Right] O2 Sat by Pulse 96 98 Oximetry ED Medical Decision Making - Medical Decision Making 66-year-old female presents with left eye pain ED course: Patient had not followed up with the ear specialist as discussed during her last visit his visit here 2 days ago. She states the appointment is for Wednesday the . She has no new symptoms. She states the same symptoms as her last visit. CT scan from 2 days ago- normal Slit lamp was performed on patient. No sign of corneal abrasion Patient is not ill-appearing. Discussed with patient and will refill her blood pressure medication as requested. Discussed the follow-up with an ear specialist as referred. Patient will be given erythromycin ointment and Motrin as home medications. Discuss if symptoms return or worsen to return to the ED Patient states understanding and will follow instructions. Vital signs stable. Patient is in no acute distress. ED Disposition Clinical Impression: Ocular pain, left eye, Conjunctivitis Disposition: - TO HOME OR SELFCARE Is pt being admited?: No Does the pt Need Aspirin: No Condition: Stable Instructions: Conjunctivitis (ED), Eye Pain (ED) Prescriptions: Erythromycin [Erythromycin Ophth Oint] 1 applic OP BID #1 tube Ibuprofen [Motrin] 600 mg PO Q8H PRN #30 tablet PRN Reason: Pain Valsartan [Diovan] 40 mg PO BID #40 tablet Referrals: PRIMARY CAREMD [Primary Care Provider] - 3-5 Days ROBERT BAEZ MD [Staff Physician] - 3-5 Days [facility] [Outside] - 3-5 Days [facility] [Outside] - 3-5 Days Time of Disposition: 14:14 <JASSI SAHU P - Last Filed: 09/10/16 20:21> ED Medical Decision Making - Medical Decision Making mid-level advised to call the patient immediately for return back to the ER. IOP not checked during the visit. concern for acute angle glaucoma and subsequent blindness. Patient should return back to the ER immediately for examination. This case was inappropriately assigned to a mid-level and charge nurse will be updated with concerns for inappropriate triage that put patient at unnecessary risk. midlevel reports she contacted the patient's daughter who agrees to bring the patient back to the ER for re-evaluation including IOP measurement. This documentation as recorded by the JESSICA arriola JASMINE,accurately reflects the service I personally performed and the decisions made by KELLY ferreira OYINLOLA A, PA.
== END 2016-09-10 14:34 | disposition home or self-care (01) ==
LOC: ED 09:18
DX: H57.12 Ocular pain, left eye (principal); H10.9 Unspecified conjunctivitis; Z86.73 Personal history of transient ischemic attack (TIA), and cerebral infarction without residual deficits; J44.9 Chronic obstructive pulmonary disease, unspecified; E78.00 Pure hypercholesterolemia, unspecified; Z87.891 Personal history of nicotine dependence; Z90.49 Acquired absence of other specified parts of digestive tract; Z88.6 Allergy status to analgesic agent; Z88.2 Allergy status to sulfonamides
CPT/HCPCS: 99282

== ENCOUNTER 2016-09-10 21:09 | Emergency (ER) | payer MEDICARE ==
[2016-09-10 21:27] VITALS: BP 152/90
== END 2016-09-10 23:35 ==
LOC: ED 21:09
DX: H57.12 Ocular pain, left eye (principal); Z88.1 Allergy status to other antibiotic agents; Z88.6 Allergy status to analgesic agent

== ENCOUNTER 2017-01-01 15:10 | Emergency (ER) | payer MEDICARE ==
[2017-01-01 15:59] VITALS: BP 138/84
[2017-01-01] MEDS ORDERED: TORADOL IM ONE (16:58)
[2017-01-01] MEDS ORDERED: DELTASONE PO ONE (16:58)
--- NOTE | 2017-01-01 17:04 | Emergency Department Report ---
ED Upper Extremity Inj HPI - General Chief Complaint: Extremity Problem,Nontraumatic Stated Complaint: RIGHT ARM WEAKNESS Time Seen by Provider: 01/01/17 16:57 Source: patient Mode of arrival: Ambulatory Limitations: No Limitations - History of Present Illness Initial Comments: pt is a 66 y/o aaf with hx of gout , hth, gerd, who presents for right elbow pain progressing over the past 3 weeks pt denies fall injury or trauma no fever no chills no numbness no tingling no weakness no paralysis, pt is retireed denies frequent or strenuous use. has hx of gout and arthritis pt has primary care doctor Dr. Salcedo at [facility]. MD Complaint: Injury to:: right, elbow Onset/Timin -: days(s) Other Extremity Injury: Elbow: Right Other Injuries: none Handedness: right Place: home Severity scale (0 -10): 5 Improves With: other (nothing tried) Worsens With: movement of extremity, other (palpation) Context: other ("I just woke up like this") Associated Symptoms: denies other symptoms - Related Data Home Medications Medication Instructions Recorded Confirmed Last Taken Valsartan [Diovan] 80 mg PO DAILY 05/29/15 09/17/15 Unknown Previous Rx's Medication Instructions Recorded Last Taken Type Fluconazole [Diflucan TAB] 150 mg PO ONCE #2 tablet 09/17/15 Unknown Rx Pantoprazole [Protonix] 40 mg PO QDAY #30 tablet 10/30/15 Unknown Rx Erythromycin [Erythromycin Ophth 1 applic OP BID #1 tube 09/10/16 Unknown Rx Oint] Ibuprofen [Motrin] 600 mg PO Q8H PRN #30 tablet 09/10/16 Unknown Rx Valsartan [Diovan] 40 mg PO BID #40 tablet 09/10/16 Unknown Rx Allergies Allergy/AdvReac Type Severity Reaction Status Date / Time acetaminophen [From Percocet] Allergy Anaphylaxis Verified 05/29/15 13:24 aspirin Allergy Rash Verified 05/29/15 13:24 ciprofloxacin [From Cipro] Allergy Dizziness Verified 05/29/15 13:24 ciprofloxacin HCl Allergy Dizziness Verified 05/29/15 13:24 [From Cipro] levofloxacin [From Levaquin] Allergy Dizziness Verified 10/30/15 11:38 morphine Allergy Itching Verified 05/29/15 13:24 oxycodone HCl [From Percocet] Allergy Anaphylaxis Verified 05/29/15 13:24 Sulfa (Sulfonamide Allergy Seizure Verified 05/29/15 13:24 Antibiotics) ED Review of Systems ROS: Stated complaint: RIGHT ARM WEAKNESS Other details as noted in HPI Constitutional: denies: chills, fever Eyes: denies: eye pain, eye discharge, vision change ENT: denies: ear pain, throat pain Respiratory: no symptoms reported Cardiovascular: denies: chest pain, palpitations Endocrine: no symptoms reported Gastrointestinal: denies: abdominal pain, nausea, diarrhea Genitourinary: denies: urgency, dysuria, discharge Musculoskeletal: arthralgia, myalgia Skin: denies: rash, lesions Neurological: denies: headache, weakness, numbness, paresthesias, confusion, abnormal gait, vertigo Psychiatric: denies: anxiety, depression Hematological/Lymphatic: denies: easy bleeding, easy bruising ED Past Medical Hx - Past Medical History Previous Medical History?: Yes Hx Hypertension: Yes Hx CVA: Yes (TIA) Hx Congestive Heart Failure: No Hx Diabetes: No Hx Renal Disease: Yes Hx Asthma: No Hx COPD: Yes Additional medical history: glaucoma. high cholesterol. G6PD. heart murmur/ MVP. OBESITY, Blind in left eye - Surgical History Past Surgical History?: Yes Hx Cholecystectomy: Yes Additional Surgical History: Hysterectomy. - Social History Smoking Status: Never Smoker Substance Use Type: None - Medications Home Medications: Home Medications Medication Instructions Recorded Confirmed Last Taken Type Valsartan [Diovan] 80 mg PO DAILY 05/29/15 09/17/15 Unknown History Fluconazole [Diflucan TAB] 150 mg PO ONCE #2 tablet 09/17/15 Unknown Rx Pantoprazole [Protonix] 40 mg PO QDAY #30 tablet 10/30/15 Unknown Rx Erythromycin [Erythromycin Ophth 1 applic OP BID #1 tube 09/10/16 Unknown Rx Oint] Ibuprofen [Motrin] 600 mg PO Q8H PRN #30 tablet 09/10/16 Unknown Rx Valsartan [Diovan] 40 mg PO BID #40 tablet 09/10/16 Unknown Rx ED Physical Exam - General Limitations: No Limitations General appearance: alert, in no apparent distress - Head Head exam: Present: atraumatic, normocephalic - Eye Eye exam: Present: normal appearance - ENT ENT exam: Present: mucous membranes moist - Neck Neck exam: Present: normal inspection. Absent: full ROM, lymphadenopathy - Respiratory Respiratory exam: Present: normal lung sounds bilaterally. Absent: respiratory distress, wheezes, stridor, chest wall tenderness - Cardiovascular Cardiovascular Exam: Present: regular rate, normal rhythm, normal heart sounds. Absent: systolic murmur, diastolic murmur, rubs, gallop - GI/Abdominal GI/Abdominal exam: Present: soft, normal bowel sounds. Absent: distended, tenderness, guarding, rebound, rigid, organomegaly, mass, bruit, pulsatile mass , hernia - Rectal Rectal exam: Present: deferred - Extremities Exam Extremities exam: Present: normal inspection, full ROM, tenderness (right posterior elbow pain no swelling erythema no ecchymosis no fever no deformity ) , normal capillary refill. Absent: pedal edema, joint swelling, calf tenderness - Expanded Upper Extremity Exam Right Shoulder Exam: Present: normal inspection, full ROM Upper Arm exam: Present: normal inspection, full ROM Elbow exam: Present: full ROM, tenderness (mild right posterior elbow ulnar head tenderness no numbness no weakness no tingling no weakness rad pulse +2, graphic coordinator equal bilat 5/5 right wrist flexion and extension intact unrestricted ), pain w/ pronation/supination, tenderness over radial head. Absent: swelling, abrasion, laceration, ecchymosis, deformity, crepidus, dislocation, erythema, effusion Forearm Wrist exam: Present: normal inspection, full ROM, tenderness (mild anterior fore tenderness with rotation no erythema no swelling ). Absent: swelling, abrasion, laceration, ecchymosis, deformity, crepidus, dislocation, erythema, tenderness over anatomical snuff box, pain with axial thumb loading Hand Wrist exam: Present: normal inspection, full ROM. Absent: tenderness, swelling, abrasion, laceration, ecchymosis, deformity, crepidus, dislocation, erythema, amputation, nail avulsion, subungual hematoma Neuro motor exam: Present: wrist extension intact, thumb opposition intact, thumb IP flexion intact, thumb adduction intact, fingers 2-5 abduction intact Neurosensory exam: Present: 2-point discrimination, radial nerve intact, ulnar nerve intact, median nerve intact Vascular: Present: normal capillary refill, radial pulse, brachial pulse, ulnar pulse. Absent: vascular compromise, Pallo, pulse deficit radial art, pulse deficit ulnar art, pulse deficit brachial art - Back Exam Back exam: Present: normal inspection, full ROM. Absent: tenderness, CVA tenderness (R), CVA tenderness (L), muscle spasm, paraspinal tenderness, vertebral tenderness, rash noted - Neurological Exam Neurological exam: Present: alert, oriented X3, CN II-XII intact, normal gait, motor sensory deficit. Absent: reflexes normal - Psychiatric Psychiatric exam: Present: normal affect, normal mood - Skin Skin exam: Present: warm, dry, intact, normal color. Absent: rash ED Course Vital Signs 01/01/17 15:44 Temperature 98.9 F Pulse Rate 92 H Respiratory 16 Rate Blood Pressure 138/84 O2 Sat by Pulse 98 Oximetry ED Medical Decision Making - Radiology Data Radiology results: image reviewed no fracture - Medical Decision Making pt is a 66 y/o aaf with hx of gout , hth, gerd, who presents for right elbow pain progessing over the past 3 weeks, pt denies fall injury or trauma no fever no chills no numbness no tingling no weakness no paralysis exam: pt appears well nontoxic, righ arm: no deformity no swelling no shoulder pain arm rom intact unrestricted, right posterior elbow tenderness , no bursitis, mild anterior forearm tenderness, no numbness no weakness no tingling no paralysis rad pulse +2, graphic coordinator equal bilat 5/5 right wrist flexion and extension intact unrestricted , dog sitter <3 sec bilat, elbow pain to rotation , full elbow extension to direct confrontation is strong and unrestricted this is not likely a fracture , pt denies overuse event, plan: steroid and nsaid po for gout, xray as patient per patient request, if xray negative will tx for gout exacerbation, pt now advises that she would rather take tylenol po and follow up pcp Dr. Salcedo on , pt advised to return to emergency if symptoms worsen. pt is currently a/o x 3 ambulatory gait steady advises pain in improved with tylenol taken at home prior to ed visit and refuses medication at this time. Critical care attestation.: If time is entered above; I have spent that time in minutes in the direct care of this critically ill patient, excluding procedure time. ED Disposition Clinical Impression: Arthralgia of elbow, right, Costochondritis Disposition: TO HOME OR SELFCARE Is pt being admited?: No Does the pt Need Aspirin: No Condition: Stable Instructions: Arthralgia (ED) Additional Instructions: follow up with Dr. Salcedo on wednesday as discussed and agreed Referrals: PRIMARY CARE, [Primary Care Provider] - 3-5 Days Forms: Work/School Release Form(ED) Time of Disposition: 18:17
--- NOTE | 2017-01-02 09:54 | XRay Report ---
RIGHT ELBOW, 3 views: History: Right elbow pain. Moderate to severe osteoarthritic changes are identified. No evidence for fracture, dislocation or bone lesion. A large joint effusion is detected. IMPRESSION: Advanced osteoarthritic changes. Large joint effusion. No acute process noted. If further evaluation is needed, MRI right elbow without contrast would provide the most information.
== END 2017-01-01 18:30 | disposition home or self-care (01) ==
LOC: ED 15:10
DX: M25.521 Pain in right elbow (principal); M94.0 Chondrocostal junction syndrome [Tietze]; I10 Essential (primary) hypertension; J44.9 Chronic obstructive pulmonary disease, unspecified; E78.00 Pure hypercholesterolemia, unspecified; E66.9 Obesity, unspecified; Z86.73 Personal history of transient ischemic attack (TIA), and cerebral infarction without residual deficits; Z90.49 Acquired absence of other specified parts of digestive tract; Z90.710 Acquired absence of both cervix and uterus; Z88.1 Allergy status to other antibiotic agents; Z88.2 Allergy status to sulfonamides; Z88.6 Allergy status to analgesic agent
CPT/HCPCS: 73080; 99283; J1885; J7512

== ENCOUNTER 2017-03-23 16:41 | Emergency (ER) | payer MEDICARE ==
[2017-03-24] MEDS ORDERED: NAPROSYN PO ONE (02:56)
[2017-03-24] MEDS ORDERED: TYLENOL #3 PO ONE (02:56)
--- NOTE | 2017-03-24 04:45 | XRay Report ---
FINAL REPORT PROCEDURE: XR FOOT 3+V LT TECHNIQUE: LEFT foot radiographs, AP, lateral, and oblique views. CPT 36551 HISTORY: left toe pain COMPARISON: No prior studies are available for comparison. FINDINGS: Fracture (s) and/or Dislocation(s): None . Alignment: Normal . 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 Soft tissues: There is generalized soft tissue swelling of the forefoot.. Bone mineralization: Normal . Foreign bodies: None . Calcaneal spurring: None . IMPRESSION: There are no fractures or malalignments. 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 There is generalized soft tissue swelling of the forefoot..
--- NOTE | 2017-03-24 05:44 | Emergency Department Report ---
ED General Adult HPI - General Chief complaint: Extremity Injury, Lower Stated complaint: LEFT FOOT PAIN Time Seen by Provider: 03/24/17 02:51 Source: patient Mode of arrival: Wheelchair Limitations: No Limitations - History of Present Illness Initial comments: Patient is a 66-year-old female past mental history of gout who presents with left toe pain as a going on for the last 10 hours. Patient states that her left toe pain as a 10 out of 10 putting pressure on it makes it worse nothing makes it better. Patient states that she has gout before however she states that the pain is so severe she can't stand it. Pain radiates up her leg. She denies having any nausea or vomiting or any shortness of breath. The pain as a burning type of pain. Severity scale (0 -10): 10 - Related Data Home Medications Medication Instructions Recorded Confirmed Last Taken Valsartan [Diovan] 80 mg PO DAILY 05/29/15 09/17/15 Unknown Previous Rx's Medication Instructions Recorded Last Taken Type Fluconazole [Diflucan TAB] 150 mg PO ONCE #2 tablet 09/17/15 Unknown Rx Pantoprazole [Protonix] 40 mg PO QDAY #30 tablet 10/30/15 Unknown Rx Erythromycin [Erythromycin Ophth 1 applic OP BID #1 tube 09/10/16 Unknown Rx Oint] Ibuprofen [Motrin] 600 mg PO Q8H PRN #30 tablet 09/10/16 Unknown Rx Valsartan [Diovan] 40 mg PO BID #40 tablet 09/10/16 Unknown Rx Acetaminophen/Codeine [Tylenol 1 tab PO Q6H PRN #15 tab 03/24/17 Unknown Rx /Codeine # 3 tab] Diclofenac Sodium [Voltaren] 100 gm TP Q6H #1 gel..gram. 03/24/17 Unknown Rx Allergies Allergy/AdvReac Type Severity Reaction Status Date / Time acetaminophen [From Percocet] Allergy Anaphylaxis Verified 03/23/17 16:48 aspirin Allergy Rash Verified 03/23/17 16:48 ciprofloxacin [From Cipro] Allergy Dizziness Verified 03/23/17 16:48 ciprofloxacin HCl Allergy Dizziness Verified 03/23/17 16:48 [From Cipro] levofloxacin [From Levaquin] Allergy Dizziness Verified 03/23/17 16:48 morphine Allergy Itching Verified 03/23/17 16:48 oxycodone HCl [From Percocet] Allergy Anaphylaxis Verified 03/23/17 16:48 Sulfa (Sulfonamide Allergy Seizure Verified 03/23/17 16:48 Antibiotics) ED Review of Systems ROS: Stated complaint: LEFT FOOT PAIN Other details as noted in HPI Constitutional: denies: chills, fever Eyes: denies: eye pain, eye discharge, vision change ENT: denies: ear pain, throat pain Respiratory: denies: cough, shortness of breath, wheezing Cardiovascular: denies: chest pain, palpitations Endocrine: no symptoms reported Gastrointestinal: denies: abdominal pain, nausea, diarrhea Genitourinary: denies: urgency, dysuria, discharge Musculoskeletal: as per HPI. denies: back pain, joint swelling, arthralgia Skin: denies: rash, lesions Neurological: denies: headache, weakness, paresthesias Psychiatric: denies: anxiety, depression Hematological/Lymphatic: denies: easy bleeding, easy bruising ED Past Medical Hx - Past Medical History Hx Hypertension: Yes Hx CVA: Yes (TIA) Hx Congestive Heart Failure: No Hx Diabetes: No Hx Renal Disease: Yes Hx Asthma: No Hx COPD: Yes Additional medical history: glaucoma. high cholesterol. G6PD. heart murmur/ MVP. OBESITY, Blind in left eye - Surgical History Hx Cholecystectomy: Yes Additional Surgical History: Hysterectomy. - Social History Smoking Status: Never Smoker Substance Use Type: None - Medications Home Medications: Home Medications Medication Instructions Recorded Confirmed Last Taken Type Valsartan [Diovan] 80 mg PO DAILY 05/29/15 09/17/15 Unknown History Fluconazole [Diflucan TAB] 150 mg PO ONCE #2 tablet 09/17/15 Unknown Rx Pantoprazole [Protonix] 40 mg PO QDAY #30 tablet 10/30/15 Unknown Rx Erythromycin [Erythromycin Ophth 1 applic OP BID #1 tube 09/10/16 Unknown Rx Oint] Ibuprofen [Motrin] 600 mg PO Q8H PRN #30 tablet 09/10/16 Unknown Rx Valsartan [Diovan] 40 mg PO BID #40 tablet 09/10/16 Unknown Rx Acetaminophen/Codeine [Tylenol 1 tab PO Q6H PRN #15 tab 03/24/17 Unknown Rx /Codeine # 3 tab] Diclofenac Sodium [Voltaren] 100 gm TP Q6H #1 gel..gram. 03/24/17 Unknown Rx ED Physical Exam - General Limitations: No Limitations General appearance: alert, in no apparent distress - Head Head exam: Present: atraumatic, normocephalic - Eye Eye exam: Present: normal appearance - ENT ENT exam: Present: mucous membranes moist - Neck Neck exam: Present: normal inspection - Respiratory Respiratory exam: Present: normal lung sounds bilaterally. Absent: respiratory distress - Cardiovascular Cardiovascular Exam: Present: regular rate, normal rhythm. Absent: systolic murmur, diastolic murmur, rubs, gallop - GI/Abdominal GI/Abdominal exam: Present: soft, normal bowel sounds - Extremities Exam Extremities exam: Present: other (lower toe pain and warmth. ) - Back Exam Back exam: Present: normal inspection - Neurological Exam Neurological exam: Present: alert, oriented X3 - Psychiatric Psychiatric exam: Present: normal affect, normal mood - Skin Skin exam: Present: warm, dry, intact, normal color. Absent: rash ED Course Vital Signs 03/23/17 03/24/17 03/24/17 16:48 03:12 06:03 Temperature 98.8 F 98.1 F Pulse Rate 70 69 Respiratory 18 18 16 Rate Blood Pressure 137/83 Blood Pressure 147/76 [Left] O2 Sat by Pulse 100 98 Oximetry ED Medical Decision Making - Radiology Data Radiology results: report reviewed, image reviewed Left toe x-ray: Shows degenerative arthrosis of the first metatarsal joint no acute fracture or dislocation. - Medical Decision Making Medical diagnosis: Gout of the great toe differential medical diagnosis: Osteoarthritis, inflammatory arthritis I will get xrays and pain medications Patient is feeling better with pain medication. I will send patient home with voltaren cream and tylenol 3 for breath through pain. Patient verbalized understanding and agrees with plan. Additional verbal discharge instructions were given. Critical care attestation.: If time is entered above; I have spent that time in minutes in the direct care of this critically ill patient, excluding procedure time. ED Disposition Clinical Impression: Gouty arthritis of left great toe, Toe pain, left Disposition: - TO HOME OR SELFCARE Is pt being admited?: No Does the pt Need Aspirin: No Condition: Stable Instructions: Acute Gouty Arthritis (ED) Prescriptions: Acetaminophen/Codeine [Tylenol /Codeine # 3 tab] 1 tab PO Q6H PRN #15 tab PRN Reason: Pain Diclofenac Sodium [Voltaren] 100 gm TP Q6H #1 gel..gram. Referrals: ERICK MANCINI MD [Primary Care Provider] - 3-5 Days
[2017-03-24 06:04] VITALS: BP 147/76
== END 2017-03-24 05:55 | disposition home or self-care (01) ==
LOC: ED 16:41
DX: M10.9 Gout, unspecified (principal); I12.9 Hypertensive chronic kidney disease with stage 1 through stage 4 chronic kidney disease, or unspecified chronic kidney disease; N18.9 Chronic kidney disease, unspecified; J44.9 Chronic obstructive pulmonary disease, unspecified; E78.00 Pure hypercholesterolemia, unspecified; H40.9 Unspecified glaucoma; Z90.710 Acquired absence of both cervix and uterus; Z90.49 Acquired absence of other specified parts of digestive tract; Z86.73 Personal history of transient ischemic attack (TIA), and cerebral infarction without residual deficits; Z88.6 Allergy status to analgesic agent; Z88.1 Allergy status to other antibiotic agents
CPT/HCPCS: 99283

== ENCOUNTER 2017-06-30 04:43 | Emergency (ER) | payer MEDICARE ==
[2017-06-30 06:44] LABS: Basophils # (Auto) 0.1 K/mm3 (0.0-0.1); Basophils % (Auto) 0.7 % (0.0-1.8); Eosinophils # (Auto) 0.2 K/mm3 (0.0-0.4); Eosinophils % (Auto) 2.5 % (0.0-4.3); Hematocrit 35.7 % (30.3-42.9); Hemoglobin 11.9 gm/dl (10.1-14.3); Lymphocytes # (Auto) 3.2 K/mm3 (1.2-5.4); Lymphocytes % (Auto) 33.4 % (13.4-35.0); Mean Corpuscular HGB Conc 33 % (30-34); Mean Corpuscular Hemoglobin 31 pg (28-32); Mean Corpuscular Volume 93 fl (79-97); Monocytes # (Auto) 0.9 K/mm3 (0.0-0.8); Monocytes % (Auto) 9.3 % (0.0-7.3); Platelet Count 243 K/mm3 (140-440); Red Blood Count 3.82 M/mm3 (3.65-5.03); Red Cell Distribution Width 13.9 % (13.2-15.2)
[2017-06-30 06:56] LABS: Calcium 9.4 mg/dL (8.4-10.2)
[2017-06-30 08:44] LABS: Bilirubin,Urine NEG (Negative); Blood,Urine NEG (Negative); Color,Urine Yellow (Yellow); Mucus,Urine FEW /HPF; RBC,Urine < 1.0 /HPF (0.0-6.0); Urobilinogen,Urine < 2.0 mg/dL (<2.0)
--- NOTE | 2017-06-30 12:01 | Emergency Department Report ---
Abscess Boil HPI - HPI Chief Complaint: Skin/Abscess/Foreign Body Stated Complaint: BACK PAIN, BOIL ON GROIN AREA Time Seen by Provider: 06/30/17 11:09 Duration: >1 Week Location: Other (right groin region) Severity: Mild History: Yes Pain, Yes Purulent Drainage, No Fever, No Numbness, No Foreign Body , No Previous History, No Insect Bite HPI: This is a 67-year-old female nontoxic, well nourished in appearance, no acute signs of distress presents to the ED with c/o of right groin abscess with purulent drainage 1 month. Patient also stated has acute on chronic dizziness when laying down and states she follows up with a primary care doctor and is diagnosed with vertigo. Patient currently in the ED denies any dizziness. Patient denies follow-up with a primary care doctor for the abscess of the groin and not taking any antibiotics. Patient denies any trauma. She denies any fever, chills, nausea, vomiting, chest pain, shortness of breath, back pain , abdominal pain, headache or stiff neck. Patient stated that abscess has started to drain about 3 days ago with pus. Patient states she is G6 PD with past medical history and also COPD, CVA and hypertension. Home Medications: Home Medications Medication Instructions Recorded Confirmed Last Taken Valsartan [Diovan] 80 mg PO DAILY 05/29/15 09/17/15 Unknown Previous Rx's Medication Instructions Recorded Last Taken Type Fluconazole [Diflucan TAB] 150 mg PO ONCE #2 tablet 09/17/15 Unknown Rx Pantoprazole [Protonix] 40 mg PO QDAY #30 tablet 10/30/15 Unknown Rx Erythromycin [Erythromycin Ophth 1 applic OP BID #1 tube 09/10/16 Unknown Rx Oint] Ibuprofen [Motrin] 600 mg PO Q8H PRN #30 tablet 09/10/16 Unknown Rx Valsartan [Diovan] 40 mg PO BID #40 tablet 09/10/16 Unknown Rx Acetaminophen/Codeine [Tylenol 1 tab PO Q6H PRN #15 tab 03/24/17 Unknown Rx /Codeine # 3 tab] Diclofenac Sodium [Voltaren] 100 gm TP Q6H #1 gel..gram. 03/24/17 Unknown Rx Clindamycin [Clindamycin CAP] 300 mg PO Q8H 7 Days cap 06/30/17 Unknown Rx Allergies/Adverse Reactions: Allergies Allergy/AdvReac Type Severity Reaction Status Date / Time acetaminophen [From Percocet] Allergy Anaphylaxis Verified 03/23/17 16:48 aspirin Allergy Rash Verified 03/23/17 16:48 ciprofloxacin [From Cipro] Allergy Dizziness Verified 03/23/17 16:48 ciprofloxacin HCl Allergy Dizziness Verified 03/23/17 16:48 [From Cipro] levofloxacin [From Levaquin] Allergy Dizziness Verified 03/23/17 16:48 morphine Allergy Itching Verified 03/23/17 16:48 oxycodone HCl [From Percocet] Allergy Anaphylaxis Verified 03/23/17 16:48 Sulfa (Sulfonamide Allergy Seizure Verified 03/23/17 16:48 Antibiotics) ED Review of Systems ROS: Stated complaint: BACK PAIN, BOIL ON GROIN AREA Other details as noted in HPI Constitutional: denies: chills, fever Eyes: denies: eye pain, eye discharge, vision change ENT: denies: ear pain, throat pain Respiratory: denies: cough, shortness of breath, wheezing Cardiovascular: denies: chest pain, palpitations Endocrine: no symptoms reported Gastrointestinal: denies: abdominal pain, nausea, diarrhea Genitourinary: denies: urgency, dysuria, discharge Musculoskeletal: denies: back pain, joint swelling, arthralgia Skin: denies: rash, lesions Neurological: denies: headache, weakness, paresthesias Psychiatric: denies: anxiety, depression Hematological/Lymphatic: denies: easy bleeding, easy bruising ED Past Medical Hx - Past Medical History Previous Medical History?: Yes Hx Hypertension: Yes Hx CVA: Yes (TIA) Hx Congestive Heart Failure: No Hx Diabetes: No Hx Renal Disease: Yes Hx Asthma: No Hx COPD: Yes Additional medical history: glaucoma. high cholesterol. G6PD. heart murmur/ MVP. OBESITY, Blind in left eye - Surgical History Hx Cholecystectomy: Yes Additional Surgical History: Hysterectomy 2011. - Social History Smoking Status: Former Smoker Substance Use Type: None - Medications Home Medications: Home Medications Medication Instructions Recorded Confirmed Last Taken Type Valsartan [Diovan] 80 mg PO DAILY 05/29/15 09/17/15 Unknown History Fluconazole [Diflucan TAB] 150 mg PO ONCE #2 tablet 09/17/15 Unknown Rx Pantoprazole [Protonix] 40 mg PO QDAY #30 tablet 10/30/15 Unknown Rx Erythromycin [Erythromycin Ophth 1 applic OP BID #1 tube 09/10/16 Unknown Rx Oint] Ibuprofen [Motrin] 600 mg PO Q8H PRN #30 tablet 09/10/16 Unknown Rx Valsartan [Diovan] 40 mg PO BID #40 tablet 09/10/16 Unknown Rx Acetaminophen/Codeine [Tylenol 1 tab PO Q6H PRN #15 tab 03/24/17 Unknown Rx /Codeine # 3 tab] Diclofenac Sodium [Voltaren] 100 gm TP Q6H #1 gel..gram. 03/24/17 Unknown Rx Clindamycin [Clindamycin CAP] 300 mg PO Q8H 7 Days cap 06/30/17 Unknown Rx ED Abscess Boil Physical Exam - Exam General: Vital signs noted. No distress. Alert and acting appropriately. Front/Back of Body, Lg (Color): 1 - Abscess with slight induration and fluctuance with purulent drainage. Size: 1 cm Exam: Yes Tenderness, Yes Fluctuance, Yes Normal Neurologic Exam, Yes Normal Circulation, No Surrounding Cellulites/Erythema, No Lymphangitis, No Crepitation , No Heart Murmur Exam: GENERAL: The patient is a well-developed, well-nourished in no apparent distress. Patient is alert and acting appropriately for age. Alert and oriented 3, no apparent distress, normal gait, atraumatic. HEENT: Head is normocephalic and atraumatic. PERRL, Extraocular muscles are intact. Pupils are equal, round, and reactive to light and accommodation. Nares appeared normal. Mouth is well hydrated and without lesions. Mucous membranes are moist. Posterior pharynx clear of any exudate or lesions. Mouth is well hydrated and without lesions. Tonsils not erythematous or swollen. Uvula midline. Tongue elevated. Mucous members are moist. Posterior pharynx clear, no exudate or lesions. Patent airways. . NECK: Supple. No carotid bruits. No lymphadenopathy or thyromegaly.nontender. No meningitic signs are noted. . LUNGS: Clear to auscultation. Non labor breathing. No intercostal retractions. Symmetrical with respiration, no wheezing, no rales, or crackles. . HEART: Regular rate and rhythm without murmur, rubs or gallops. No reproducible. S1, S2 present, regular rate and rhythm without murmur, no rubs, no gallops. . ABDOMEN: Soft, nontender, and nondistended. Positive bowel sounds. No hepatosplenomegaly was noted. No guarding or rebound tenderness, negative epigastric bruit. Negative psoas sign, negative tripathi sign, negative McBurneys sign. . EXTREMITIES: Without any cyanosis, clubbing, rash, lesions or edema. Peripheral pulses intact. Capillary refill less than 2 seconds. Full range of motion bilaterally. . NEUROLOGIC: Cranial nerves II through XII are grossly intact. Alert and oriented x 3. Normal gait. Symmetrical strength and sensation. Reflexes 2+ throughout. Cerebellar testing normal. GCS score of 15. . PSYCHIATRIC: Normal affect with no suicidal or homicidal ideations. ED Course Vital Signs 06/30/17 06/30/17 06:03 10:53 Temperature 99 F 98.2 F Pulse Rate 79 62 Respiratory 18 15 Rate Blood Pressure 160/79 Blood Pressure 121/56 [Right] O2 Sat by Pulse 98 98 Oximetry - Reevaluation(s) Reevaluation #1: 06/30/17 11:59 Patient is speaking in full sentences with no signs of distress noted. Critical care attestation.: If time is entered above; I have spent that time in minutes in the direct care of this critically ill patient, excluding procedure time. ED Medical Decision Making - Lab Data Result diagrams: 06/30/17 06:33 06/30/17 06:33 - Medical Decision Making This is a 67-year-old female that presents with abscess. Patient is stable and was examined by me. There is slight induration and flutance present so I wanted to incise the area and I can drain the abscess but the patient refused. Labs within normal limits. UA normal. Patient stated that she read take antibiotics and see if this goes away and if not she will return to the ER. I instructed educated patient's of my concerns of increasing abscess size and that it is better for me to drain it currently but she refused as she is scared. Educated that I did give patient some pain medication but she still refused. Patient is discharged with clindamycin as she has G6PD. Patient was instructed and referred to Wound Care. Patient was referred to Follow-up with a primary care doctor in 3-5 days or if symptoms worsen and continue return to emergency room as soon as possible. At time of discharge, the patient does not seem toxic or ill in appearance. No acute signs of distress noted. Patient agrees to discharge treatment plan of care. No further questions noted by the patient. This chart is dictated with using [employer] ED Disposition Clinical Impression: Abscess Disposition: DC-01 TO HOME OR SELFCARE Is pt being admited?: No Does the pt Need Aspirin: No Condition: Stable Instructions: Clindamycin (By mouth), Abscess (ED) Additional Instructions: Follow-up with a primary care doctor in 3-5 days or if symptoms worsen and continue return to emergency room as soon as possible. Prescriptions: Clindamycin [Clindamycin CAP] 300 mg PO Q8H 7 Days cap Referrals: PRIMARY CAREMD [Primary Care Provider] - 3-5 Days JENNIFER ANGUIANO MD [Staff Physician] - 3-[address] [facility] [Outside] - 3-5 Days [facility] [Outside] - 3-5 Days Forms: Work/School Release Form(ED)
[2017-06-30 12:42] VITALS: BP 141/62
== END 2017-06-30 12:30 | disposition home or self-care (01) ==
LOC: ED 04:43
DX: L02.214 Cutaneous abscess of groin (principal); I10 Essential (primary) hypertension; Z86.73 Personal history of transient ischemic attack (TIA), and cerebral infarction without residual deficits; J44.9 Chronic obstructive pulmonary disease, unspecified; E78.00 Pure hypercholesterolemia, unspecified; Z87.891 Personal history of nicotine dependence; Z88.6 Allergy status to analgesic agent; Z88.1 Allergy status to other antibiotic agents; Z88.2 Allergy status to sulfonamides; Z88.8 Allergy status to other drugs, medicaments and biological substances
CPT/HCPCS: 36415; 80048; 81001; 85025; 87086; 99283

== ENCOUNTER 2017-07-05 12:03 | Emergency (ER) | payer MEDICARE ==
[2017-07-05 12:27] VITALS: BP 150/89
--- NOTE | 2017-07-05 15:33 | Emergency Department Report ---
Blank Doc - Documentation Documentation: 67-year-old female with a past medical history G6PD deficiency was seen here on June 30 for treatment of the right pubic mounds abscess. She refused I and D at that time. She was discharged on clindamycin. Today for the antibiotics she began have arthralgias of her arms/shoulders that are worse with movement and palpation. No fever reported. Patient reports the abscess is getting smaller. She's presents concerned since she has had a similar reaction and needed to be admitted when taking antibiotics due to her G6PD deficiency. Focused Physical exam Pain with movement of bilateral shoulders without acute deformity. Full range of motion. No warmth or erythema Labs/UA ordered to rule out hemolysis
[2017-07-05 15:37] LABS: Bilirubin,Urine NEG (Negative); Blood,Urine NEG (Negative); Color,Urine Yellow (Yellow); Mucus,Urine FEW /HPF; Urobilinogen,Urine < 2.0 mg/dL (<2.0)
[2017-07-05 15:43] LABS: Basophils % (Auto) 0.5 % (0.0-1.8); Eosinophils # (Auto) 0.2 K/mm3 (0.0-0.4); Eosinophils % (Auto) 2.3 % (0.0-4.3); Hematocrit 38.5 % (30.3-42.9); Hemoglobin 12.7 gm/dl (10.1-14.3); Lymphocytes # (Auto) 2.7 K/mm3 (1.2-5.4); Lymphocytes % (Auto) 36.8 % (13.4-35.0); Mean Corpuscular HGB Conc 33 % (30-34); Mean Corpuscular Hemoglobin 31 pg (28-32); Mean Corpuscular Volume 93 fl (79-97); Monocytes # (Auto) 0.7 K/mm3 (0.0-0.8); Monocytes % (Auto) 10.1 % (0.0-7.3); Platelet Count 252 K/mm3 (140-440); Red Blood Count 4.16 M/mm3 (3.65-5.03); Red Cell Distribution Width 14.2 % (13.2-15.2)
[2017-07-05 15:56] LABS: Alanine Aminotransferase 10 units/L (7-56); Albumin 4.2 g/dL (3.9-5); BUN/Creatinine Ratio 17; Blood Urea Nitrogen 20 mg/dL (7-17); Calcium 9.5 mg/dL (8.4-10.2); Hemolysis Index 6
[2017-07-05 15:58] LABS: Bilirubin,Direct < 0.2 mg/dL (0-0.2)
--- NOTE | 2017-07-05 16:56 | Emergency Department Report ---
ED General Adult HPI - General Chief complaint: Pain General Stated complaint: JOINT PAIN Time Seen by Provider: 07/05/17 14:52 Source: patient Mode of arrival: Ambulatory Limitations: No Limitations - History of Present Illness Initial comments: This is a 67-year-old female known to me nontoxic, well nourished in appearance , no acute signs of distress presents to the ED with c/o of arthralgia to bilateral arms and shoulders. Patient stated it is worsened with movement and palpation. Patient stated she is concerned with clindamycin and G6PD history. Patient denies any other symptoms. Patient denies any trauma. Patient stated the abscess has resolved. Patient stated has only 2 doses left of clindamycin and is asking if it was okay to finish. Patient denies any chest pain, fever, chills, nausea, vomiting, headache, stiff neck, dizziness, blurred vision, back pain. MD Complaint: arthralgia Radiation: non-radiation Severity scale (0 -10): 3 Quality: aching Consistency: intermittent Improves with: none Worsens with: none Associated Symptoms: denies other symptoms. denies: confusion, chest pain, cough, diaphoresis, fever/chills, headaches, loss of appetite, malaise, nausea/ vomiting, rash, seizure, shortness of breath, syncope, weakness Treatments Prior to Arrival: none - Related Data Home Medications Medication Instructions Recorded Confirmed Last Taken Valsartan [Diovan] 80 mg PO DAILY 05/29/15 09/17/15 Unknown Previous Rx's Medication Instructions Recorded Last Taken Type Fluconazole [Diflucan TAB] 150 mg PO ONCE #2 tablet 09/17/15 Unknown Rx Pantoprazole [Protonix] 40 mg PO QDAY #30 tablet 10/30/15 Unknown Rx Erythromycin [Erythromycin Ophth 1 applic OP BID #1 tube 09/10/16 Unknown Rx Oint] Ibuprofen [Motrin] 600 mg PO Q8H PRN #30 tablet 09/10/16 Unknown Rx Valsartan [Diovan] 40 mg PO BID #40 tablet 09/10/16 Unknown Rx Acetaminophen/Codeine [Tylenol 1 tab PO Q6H PRN #15 tab 03/24/17 Unknown Rx /Codeine # 3 tab] Diclofenac Sodium [Voltaren] 100 gm TP Q6H #1 gel..gram. 03/24/17 Unknown Rx Clindamycin [Clindamycin CAP] 300 mg PO Q8H 7 Days cap 06/30/17 Unknown Rx Allergies Allergy/AdvReac Type Severity Reaction Status Date / Time acetaminophen [From Percocet] Allergy Anaphylaxis Verified 03/23/17 16:48 aspirin Allergy Rash Verified 03/23/17 16:48 ciprofloxacin [From Cipro] Allergy Dizziness Verified 03/23/17 16:48 ciprofloxacin HCl Allergy Dizziness Verified 03/23/17 16:48 [From Cipro] levofloxacin [From Levaquin] Allergy Dizziness Verified 03/23/17 16:48 morphine Allergy Itching Verified 03/23/17 16:48 oxycodone HCl [From Percocet] Allergy Anaphylaxis Verified 03/23/17 16:48 Sulfa (Sulfonamide Allergy Seizure Verified 03/23/17 16:48 Antibiotics) ED Review of Systems ROS: Stated complaint: JOINT PAIN Other details as noted in HPI Constitutional: denies: chills, fever Eyes: denies: eye pain, eye discharge, vision change ENT: denies: ear pain, throat pain Respiratory: denies: cough, shortness of breath, wheezing Cardiovascular: denies: chest pain, palpitations Endocrine: no symptoms reported Gastrointestinal: denies: abdominal pain, nausea, diarrhea Genitourinary: denies: urgency, dysuria, discharge Musculoskeletal: arthralgia. denies: back pain, joint swelling Skin: denies: rash, lesions Neurological: denies: headache, weakness, paresthesias Psychiatric: denies: anxiety, depression Hematological/Lymphatic: denies: easy bleeding, easy bruising ED Past Medical Hx - Past Medical History Previous Medical History?: Yes Hx Hypertension: Yes Hx CVA: Yes (TIA) Hx Congestive Heart Failure: No Hx Diabetes: No Hx Renal Disease: Yes Hx Arthritis: Yes Hx Asthma: No Hx COPD: Yes Additional medical history: glaucoma. high cholesterol. G6PD. heart murmur/ MVP. OBESITY, Blind in left eye - Surgical History Past Surgical History?: Yes Hx Cholecystectomy: Yes Additional Surgical History: Hysterectomy 2011. - Social History Smoking Status: Former Smoker Substance Use Type: Prescribed - Medications Home Medications: Home Medications Medication Instructions Recorded Confirmed Last Taken Type Valsartan [Diovan] 80 mg PO DAILY 05/29/15 09/17/15 Unknown History Fluconazole [Diflucan TAB] 150 mg PO ONCE #2 tablet 09/17/15 Unknown Rx Pantoprazole [Protonix] 40 mg PO QDAY #30 tablet 10/30/15 Unknown Rx Erythromycin [Erythromycin Ophth 1 applic OP BID #1 tube 09/10/16 Unknown Rx Oint] Ibuprofen [Motrin] 600 mg PO Q8H PRN #30 tablet 09/10/16 Unknown Rx Valsartan [Diovan] 40 mg PO BID #40 tablet 09/10/16 Unknown Rx Acetaminophen/Codeine [Tylenol 1 tab PO Q6H PRN #15 tab 03/24/17 Unknown Rx /Codeine # 3 tab] Diclofenac Sodium [Voltaren] 100 gm TP Q6H #1 gel..gram. 03/24/17 Unknown Rx Clindamycin [Clindamycin CAP] 300 mg PO Q8H 7 Days cap 06/30/17 Unknown Rx ED Physical Exam - General Limitations: No Limitations General appearance: alert, in no apparent distress - Head Head exam: Present: atraumatic, normocephalic - Eye Eye exam: Present: normal appearance Pupils: Present: normal accommodation - ENT ENT exam: Present: normal exam, mucous membranes moist - Neck Neck exam: Present: normal inspection, full ROM - Respiratory Respiratory exam: Present: normal lung sounds bilaterally. Absent: respiratory distress, wheezes, rales, rhonchi, stridor - Cardiovascular Cardiovascular Exam: Present: regular rate, normal rhythm, normal heart sounds. Absent: bradycardia, tachycardia, irregular rhythm, systolic murmur, diastolic murmur, rubs, gallop - GI/Abdominal GI/Abdominal exam: Present: soft, normal bowel sounds - Rectal Rectal exam: Present: deferred - Extremities Exam Extremities exam: Present: normal inspection, full ROM, normal capillary refill - Back Exam Back exam: Present: normal inspection, full ROM - Neurological Exam Neurological exam: Present: alert, oriented X3, normal gait - Psychiatric Psychiatric exam: Present: normal affect, normal mood - Skin Skin exam: Present: warm, dry, intact, normal color. Absent: rash ED Course Vital Signs 07/05/17 12:23 Temperature 98.8 F Pulse Rate 80 Respiratory 20 Rate Blood Pressure 150/89 O2 Sat by Pulse 97 Oximetry - Reevaluation(s) Reevaluation #1: 07/05/17 16:55 Patient is speaking in full sentences with no signs of distress noted. - Consultations Consultation #1: 07/05/17 16:56 Patient has been consulted with Dr. Gómez about patient history, physical exam, and labs and examined and screened patient and agrees to ED plan of care and discharge plan of care. ED Medical Decision Making - Lab Data Result diagrams: 07/05/17 15:27 07/05/17 15:27 - Medical Decision Making Labs are within normal limits. Uptodate confirms that Clindamycin is safe for G6PD. Patient was instructed to continue taking antibitocs. Patient abscess has resolved. No swelling or induration or flutance noted. No signs of anemia. Patient was discussed with Dr. Gómez. Patient was instructed to Follow-up with a primary care doctor in 3-5 days or if symptoms worsen and continue return to emergency room as soon as possible. At time of discharge, the patient does not seem toxic or ill in appearance. No acute signs of distress noted. Patient agrees to discharge treatment plan of care. No further questions noted by the patient. Critical care attestation.: If time is entered above; I have spent that time in minutes in the direct care of this critically ill patient, excluding procedure time. ED Disposition Clinical Impression: Arthralgia Qualifiers: Joint pain location: unspecified Qualified Code(s): M25.50 - Pain in unspecified joint Disposition: DC-01 TO HOME OR SELFCARE Is pt being admited?: No Does the pt Need Aspirin: No Condition: Stable Instructions: Arthralgia (ED) Additional Instructions: Follow-up with a primary care doctor in 3-5 days or if symptoms worsen and continue return to emergency room as soon as possible. Referrals: MARIELA SORENSON MD [Primary Care Provider] - 3-5 Days JENNIFER ANGUIANO MD [Staff Physician] - 3-5 Days [facility] [place] - 3-5 Days [facility] [Outside] - 3-5 Days Forms: Work/School Release Form(ED)
== END 2017-07-05 17:07 | disposition home or self-care (01) ==
LOC: ED 12:03
DX: M79.601 Pain in right arm (principal); M79.602 Pain in left arm; M25.511 Pain in right shoulder; M25.512 Pain in left shoulder; I10 Essential (primary) hypertension; M19.90 Unspecified osteoarthritis, unspecified site; J44.9 Chronic obstructive pulmonary disease, unspecified; E78.00 Pure hypercholesterolemia, unspecified; H40.9 Unspecified glaucoma; H54.8 Legal blindness, as defined in USA; Z90.49 Acquired absence of other specified parts of digestive tract; Z90.710 Acquired absence of both cervix and uterus; Z87.891 Personal history of nicotine dependence; Z88.6 Allergy status to analgesic agent; Z88.1 Allergy status to other antibiotic agents; Z88.5 Allergy status to narcotic agent
CPT/HCPCS: 36415; 80048; 80074; 81001; 83010; 83615; 85025; 85045; 99283

== ENCOUNTER 2017-09-04 12:05 | Emergency (ER) | payer MEDICARE ==
[2017-09-04 12:15] VITALS: BP 134/79
[2017-09-04] MEDS ORDERED: BOOSTRIX IM ONE (14:27)
--- NOTE | 2017-09-04 14:33 | Emergency Department Report ---
ED Lower Extremity HPI - General Chief Complaint: Extremity Injury, Lower Stated Complaint: RIGHT FOOD INJURY/STUCK NAIL Time Seen by Provider: 09/04/17 14:27 Source: patient Mode of arrival: Ambulatory Limitations: Language Barrier - History of Present Illness Initial Comments: Patient reports she accidentally step on a lissette nail yesterday. She also complains of left shoulder pain that started 6-7 days ago Complaint: foot injury Onset/Timin -: days(s) Injury: Foot: Right Type of Injury: puncture wound Place: home Severity: moderate Severity scale (0 -10): 6 Improves With: rest Worsens With: weight bearing Context: stepped on nail Other Symptoms: other (none) Associated Symptoms: swelling, ambulatory. denies: snap/pop sensation, numbness , tingling, unable to bear weight, able to partially bear weight Treatments Prior to Arrival: other (none) - Related Data Home Medications Medication Instructions Recorded Confirmed Last Taken Valsartan [Diovan] 80 mg PO DAILY 05/29/15 09/17/15 Unknown Previous Rx's Medication Instructions Recorded Last Taken Type Fluconazole [Diflucan TAB] 150 mg PO ONCE #2 tablet 09/17/15 Unknown Rx Pantoprazole [Protonix] 40 mg PO QDAY #30 tablet 10/30/15 Unknown Rx Erythromycin [Erythromycin Ophth 1 applic OP BID #1 tube 09/10/16 Unknown Rx Oint] Ibuprofen [Motrin] 600 mg PO Q8H PRN #30 tablet 09/10/16 Unknown Rx Valsartan [Diovan] 40 mg PO BID #40 tablet 09/10/16 Unknown Rx Acetaminophen/Codeine [Tylenol 1 tab PO Q6H PRN #15 tab 03/24/17 Unknown Rx /Codeine # 3 tab] Diclofenac Sodium [Voltaren] 100 gm TP Q6H #1 gel..gram. 03/24/17 Unknown Rx Clindamycin [Clindamycin CAP] 300 mg PO Q8H 7 Days cap 06/30/17 Unknown Rx Cephalexin [Keflex] 500 mg PO Q12HR #20 cap 09/04/17 Unknown Rx Ibuprofen 600 mg PO TID #30 tablet 09/04/17 Unknown Rx Allergies Allergy/AdvReac Type Severity Reaction Status Date / Time acetaminophen [From Percocet] Allergy Anaphylaxis Verified 03/23/17 16:48 aspirin Allergy Rash Verified 03/23/17 16:48 ciprofloxacin [From Cipro] Allergy Dizziness Verified 03/23/17 16:48 ciprofloxacin HCl Allergy Dizziness Verified 03/23/17 16:48 [From Cipro] levofloxacin [From Levaquin] Allergy Dizziness Verified 03/23/17 16:48 morphine Allergy Itching Verified 03/23/17 16:48 oxycodone HCl [From Percocet] Allergy Anaphylaxis Verified 03/23/17 16:48 Sulfa (Sulfonamide Allergy Seizure Verified 03/23/17 16:48 Antibiotics) ED Review of Systems ROS: Stated complaint: RIGHT FOOD INJURY/STUCK NAIL Other details as noted in HPI Constitutional: denies: chills, fever Eyes: denies: eye pain, eye discharge, vision change ENT: as per HPI Respiratory: denies: cough, shortness of breath, wheezing Cardiovascular: as per HPI Gastrointestinal: denies: abdominal pain, nausea, diarrhea Musculoskeletal: arthralgia (left shoulder) Skin: other (puncture wound right foot). denies: rash, lesions, change in color , change in hair/nails, pruritus Neurological: denies: headache, weakness, paresthesias Psychiatric: denies: anxiety, depression Hematological/Lymphatic: denies: easy bleeding, easy bruising ED Past Medical Hx - Past Medical History Previous Medical History?: Yes Hx Hypertension: Yes Hx CVA: Yes (TIA) Hx Congestive Heart Failure: No Hx Diabetes: No Hx Renal Disease: Yes Hx Arthritis: Yes Hx Asthma: No Hx COPD: Yes Additional medical history: glaucoma. high cholesterol. G6PD. heart murmur/ MVP. OBESITY, Blind in left eye - Surgical History Past Surgical History?: Yes Hx Cholecystectomy: Yes Additional Surgical History: Hysterectomy 2011. - Social History Smoking Status: Former Smoker Substance Use Type: Alcohol - Medications Home Medications: Home Medications Medication Instructions Recorded Confirmed Last Taken Type Valsartan [Diovan] 80 mg PO DAILY 05/29/15 09/17/15 Unknown History Fluconazole [Diflucan TAB] 150 mg PO ONCE #2 tablet 09/17/15 Unknown Rx Pantoprazole [Protonix] 40 mg PO QDAY #30 tablet 10/30/15 Unknown Rx Erythromycin [Erythromycin Ophth 1 applic OP BID #1 tube 09/10/16 Unknown Rx Oint] Ibuprofen [Motrin] 600 mg PO Q8H PRN #30 tablet 09/10/16 Unknown Rx Valsartan [Diovan] 40 mg PO BID #40 tablet 09/10/16 Unknown Rx Acetaminophen/Codeine [Tylenol 1 tab PO Q6H PRN #15 tab 03/24/17 Unknown Rx /Codeine # 3 tab] Diclofenac Sodium [Voltaren] 100 gm TP Q6H #1 gel..gram. 03/24/17 Unknown Rx Clindamycin [Clindamycin CAP] 300 mg PO Q8H 7 Days cap 06/30/17 Unknown Rx Cephalexin [Keflex] 500 mg PO Q12HR #20 cap 09/04/17 Unknown Rx Ibuprofen 600 mg PO TID #30 tablet 09/04/17 Unknown Rx ED Physical Exam - General Limitations: Language Barrier General appearance: alert, in no apparent distress - ENT ENT exam: Present: normal exam, mucous membranes moist - Neck Neck exam: Present: normal inspection, full ROM. Absent: tenderness, meningismus, lymphadenopathy, thyromegaly - Respiratory Respiratory exam: Present: normal lung sounds bilaterally. Absent: respiratory distress, wheezes, rales, rhonchi, stridor, chest wall tenderness, accessory muscle use, decreased breath sounds, prolonged expiratory - Cardiovascular Cardiovascular Exam: Present: regular rate, normal rhythm, normal heart sounds. Absent: bradycardia, tachycardia, irregular rhythm, systolic murmur, diastolic murmur, rubs, gallop - Expanded Upper Extremity Exam Left Shoulder Exam: Present: normal inspection, full ROM, tenderness. Absent: swelling, abrasion, laceration, ecchymosis, deformity, crepidus, dislocation, erythema, tenderness over AC joint Upper Arm exam: Present: normal inspection, full ROM Elbow exam: Present: normal inspection, full ROM Forearm Wrist exam: Present: normal inspection, full ROM Hand Wrist exam: Present: normal inspection, full ROM Neuro motor exam: Present: wrist extension intact, thumb opposition intact, thumb IP flexion intact, thumb adduction intact, fingers 2-5 abduction intact Neurosensory exam: Present: 2-point discrimination, radial nerve intact, ulnar nerve intact, median nerve intact Vascular: Present: normal capillary refill, radial pulse (2+), brachial pulse (2 +), ulnar pulse (2+). Absent: vascular compromise, Pallo, pulse deficit radial art, pulse deficit ulnar art, pulse deficit brachial art - Expanded Lower Extremity Exam Right Hip exam: Present: normal inspection, full ROM Upper Leg exam: Present: normal inspection, full ROM Knee exam: Present: normal inspection Lower Leg exam: Present: normal inspection, full ROM Ankle exam: Present: normal inspection, full ROM Foot/Toe exam: Present: normal inspection, full ROM, tenderness, swelling, puncture wound (right maynard upper lateral). Absent: abrasion, laceration, ecchymosis, deformity, crepidus, dislocation, erythema, amputation, foreign body , calcaneal tenderness, tenderness at base of 5th metatarsal, nail avulsion, subungual hematoma Neuro vascular tendon exam: Present: no vascular compromise, significant pain with passive ROM of distal joint. Absent: pulse deficit, abnormal cap refill, motor deficit, sensory deficit, tendon deficit, extremity cold to touch, pallor , abnormal 2-point discrimination, decreased fine/light touch, foot drop, peroneal nerve deficit Gait: Positive: observed and normal - Back Exam Back exam: Present: normal inspection, full ROM - Neurological Exam Neurological exam: Present: alert, oriented X3, CN II-XII intact, normal gait, motor sensory deficit, reflexes normal - Psychiatric Psychiatric exam: Present: normal affect, normal mood - Skin Skin exam: Present: warm, dry, intact, normal color. Absent: rash ED Course Vital Signs 09/04/17 12:12 Temperature 98.3 F Pulse Rate 81 Respiratory 18 Rate Blood Pressure 134/79 O2 Sat by Pulse 96 Oximetry - Reevaluation(s) Reevaluation #1: 09/04/17 14:34 tetanus and imaging study ordered ED Lower Extremity MDM - Radiology Data Radiology results: image reviewed EXAM: XR FOOT 3+V RT HISTORY: STEPPED ON A NAIL TECHNIQUE: 3 views of right foot. PRIORS: None. FINDINGS: Mild degenerative change in the great and 2nd toe MTP joints. Mild plantar calcaneal spurring. No apparent fracture or dislocation. Soft tissues grossly unremarkable. IMPRESSION: 1. No acute osseous abnormality. 2. Degenerative changes. - Medical Decision Making During the course of ED, tetanus injection and imaging study were ordered. The study revealed no acute osseous abnormality. Degenerative changes. Patient was sent home with post op shoe, prescription for Tylenol ES and Keflex, instructed to keep the wound clean with antibacterial soap, dry and follow up with PCP this week. - Differential Diagnosis Puncture Wound, Right Foot Injury, Osteomyelitis Critical care attestation.: If time is entered above; I have spent that time in minutes in the direct care of this critically ill patient, excluding procedure time. ED Disposition Clinical Impression: Puncture wound Injury of right foot Qualifiers: Encounter type: initial encounter Qualified Code(s): S99.921A - Unspecified injury of right foot, initial encounter Disposition: - TO HOME OR SELFCARE Is pt being admited?: No Does the pt Need Aspirin: No Condition: Stable Instructions: Puncture Wound (ED) Additional Instructions: Take medication as directed. Follow up with your PCP this week Prescriptions: Cephalexin [Keflex] 500 mg PO Q12HR #20 cap Ibuprofen 600 mg PO TID #30 tablet Referrals: PRIMARY CARE, [Primary Care Provider] - 3-5 Days Time of Disposition: 16:10
--- NOTE | 2017-09-04 15:50 | XRay Report ---
FINAL REPORT EXAM: XR FOOT 3+V RT HISTORY: STEPPED ON A NAIL TECHNIQUE: 3 views of right foot. PRIORS: None. FINDINGS: Mild degenerative change in the great and 2nd toe MTP joints. Mild plantar calcaneal spurring. No apparent fracture or dislocation. Soft tissues grossly unremarkable. IMPRESSION: 1. No acute osseous abnormality. 2. Degenerative changes.
== END 2017-09-04 16:20 | disposition home or self-care (01) ==
LOC: ED 12:05
DX: S91.331A Puncture wound without foreign body, right foot, initial encounter (principal); I10 Essential (primary) hypertension; M19.90 Unspecified osteoarthritis, unspecified site; E78.00 Pure hypercholesterolemia, unspecified; E66.9 Obesity, unspecified; Z86.73 Personal history of transient ischemic attack (TIA), and cerebral infarction without residual deficits; Z88.6 Allergy status to analgesic agent; Z88.2 Allergy status to sulfonamides; Z88.5 Allergy status to narcotic agent; Z90.710 Acquired absence of both cervix and uterus; Z87.891 Personal history of nicotine dependence; W45.0XXA Nail entering through skin, initial encounter; Y93.89 Activity, other specified; Y99.8 Other external cause status; Y92.099 Unspecified place in other non-institutional residence as the place of occurrence of the external cause
CPT/HCPCS: 90471; 90715

== ENCOUNTER 2017-11-02 23:36 | Emergency (ER) | payer MEDICARE ==
[2017-11-03] MEDS ORDERED: NORVASC PO ONE (06:54)
--- NOTE | 2017-11-03 06:58 | Emergency Department Report ---
ED General Adult HPI - General Chief complaint: High BP Stated complaint: POSS HIGH BP COUGH Time Seen by Provider: 11/03/17 06:54 Source: patient Mode of arrival: Ambulatory Limitations: No Limitations - History of Present Illness Initial comments: Patient CC Radha female with a history of hypertension and GERD patient presents for request additional different blood pressure medication as valsartan makes her cough lisinopril causes cough PCP is Dr. Sylwia paul unable to see Dr. Salcedo until next week status blood pressure that she can't tolerate the valsartan and/or Diovan patient denies chest pain or shortness of breatj no dizziness no lightheadedness, vomiting no back pain patient is ambulatory to baseline per patient Infected though. Plan clindamycin Peridex Tylenol 3 follow up with dentist in 2 days as scheduled Onset/Timin (years) Severity scale (0 -10): 0 Quality: other (cough ) Consistency: intermittent Improves with: medication, rest Worsens with: other (bp medication ) Associated Symptoms: cough. denies: confusion, chest pain, diaphoresis, fever/ chills, loss of appetite, malaise, nausea/vomiting, rash, seizure, shortness of breath, syncope, weakness - Related Data Home Medications Medication Instructions Recorded Confirmed Last Taken Valsartan [Diovan] 80 mg PO DAILY 05/29/15 09/17/15 Unknown Previous Rx's Medication Instructions Recorded Last Taken Type Fluconazole [Diflucan TAB] 150 mg PO ONCE #2 tablet 09/17/15 Unknown Rx Pantoprazole [Protonix] 40 mg PO QDAY #30 tablet 10/30/15 Unknown Rx Erythromycin [Erythromycin Ophth 1 applic OP BID #1 tube 09/10/16 Unknown Rx Oint] Ibuprofen [Motrin] 600 mg PO Q8H PRN #30 tablet 09/10/16 Unknown Rx Valsartan [Diovan] 40 mg PO BID #40 tablet 09/10/16 Unknown Rx Acetaminophen/Codeine [Tylenol 1 tab PO Q6H PRN #15 tab 03/24/17 Unknown Rx /Codeine # 3 tab] Diclofenac Sodium [Voltaren] 100 gm TP Q6H #1 gel..gram. 03/24/17 Unknown Rx Clindamycin [Clindamycin CAP] 300 mg PO Q8H 7 Days cap 06/30/17 Unknown Rx Cephalexin [Keflex] 500 mg PO Q12HR #20 cap 09/04/17 Unknown Rx Ibuprofen 600 mg PO TID #30 tablet 09/04/17 Unknown Rx amLODIPine [Norvasc] 5 mg PO DAILY #30 tab 11/03/17 Unknown Rx Allergies Allergy/AdvReac Type Severity Reaction Status Date / Time acetaminophen [From Percocet] Allergy Anaphylaxis Verified 03/23/17 16:48 aspirin Allergy Rash Verified 03/23/17 16:48 ciprofloxacin [From Cipro] Allergy Dizziness Verified 03/23/17 16:48 ciprofloxacin HCl Allergy Dizziness Verified 03/23/17 16:48 [From Cipro] levofloxacin [From Levaquin] Allergy Dizziness Verified 03/23/17 16:48 morphine Allergy Itching Verified 03/23/17 16:48 oxycodone HCl [From Percocet] Allergy Anaphylaxis Verified 03/23/17 16:48 Sulfa (Sulfonamide Allergy Seizure Verified 03/23/17 16:48 Antibiotics) ED Review of Systems ROS: Stated complaint: POSS HIGH BP COUGH Other details as noted in HPI Constitutional: denies: chills, fever Eyes: denies: eye pain, eye discharge, vision change ENT: denies: ear pain, throat pain Respiratory: denies: cough, shortness of breath, wheezing Cardiovascular: denies: chest pain, palpitations Endocrine: no symptoms reported Gastrointestinal: denies: abdominal pain, nausea, diarrhea Genitourinary: denies: urgency, dysuria, discharge Musculoskeletal: denies: back pain, joint swelling, arthralgia Skin: denies: rash, lesions Neurological: denies: headache, weakness, paresthesias Psychiatric: denies: anxiety, depression Hematological/Lymphatic: denies: easy bleeding, easy bruising ED Past Medical Hx - Past Medical History Hx Hypertension: Yes Hx CVA: Yes (TIA) Hx Congestive Heart Failure: No Hx Diabetes: No Hx Renal Disease: Yes Hx Arthritis: Yes Hx Asthma: No Hx COPD: Yes Additional medical history: glaucoma. high cholesterol. G6PD. heart murmur/ MVP. OBESITY, Blind in left eye - Surgical History Hx Cholecystectomy: Yes Additional Surgical History: Hysterectomy 2011. - Social History Smoking Status: Former Smoker Substance Use Type: None - Medications Home Medications: Home Medications Medication Instructions Recorded Confirmed Last Taken Type Valsartan [Diovan] 80 mg PO DAILY 05/29/15 09/17/15 Unknown History Fluconazole [Diflucan TAB] 150 mg PO ONCE #2 tablet 09/17/15 Unknown Rx Pantoprazole [Protonix] 40 mg PO QDAY #30 tablet 10/30/15 Unknown Rx Erythromycin [Erythromycin Ophth 1 applic OP BID #1 tube 09/10/16 Unknown Rx Oint] Ibuprofen [Motrin] 600 mg PO Q8H PRN #30 tablet 09/10/16 Unknown Rx Valsartan [Diovan] 40 mg PO BID #40 tablet 09/10/16 Unknown Rx Acetaminophen/Codeine [Tylenol 1 tab PO Q6H PRN #15 tab 03/24/17 Unknown Rx /Codeine # 3 tab] Diclofenac Sodium [Voltaren] 100 gm TP Q6H #1 gel..gram. 03/24/17 Unknown Rx Clindamycin [Clindamycin CAP] 300 mg PO Q8H 7 Days cap 06/30/17 Unknown Rx Cephalexin [Keflex] 500 mg PO Q12HR #20 cap 09/04/17 Unknown Rx Ibuprofen 600 mg PO TID #30 tablet 09/04/17 Unknown Rx amLODIPine [Norvasc] 5 mg PO DAILY #30 tab 11/03/17 Unknown Rx ED Physical Exam - General Limitations: No Limitations ED Course Vital Signs 11/02/17 11/03/17 23:50 05:06 Temperature 97.9 F Pulse Rate 94 H 64 Respiratory 16 17 Rate Blood Pressure 188/87 Blood Pressure 147/79 [Right] O2 Sat by Pulse 99 99 Oximetry ED Medical Decision Making - Medical Decision Making pt ezekiel symptoms at this time no sob no cp no back pain no dizziness no lightheadedness no n/v pt is a/o x 3 ambulatory gait steady with nad will rx amlodipine 5 mg po daily pt will follow up with pcp Dr Ronquillo in 1-2 days pt verbalized agreement and understanding of discharge plan. Critical care attestation.: If time is entered above; I have spent that time in minutes in the direct care of this critically ill patient, excluding procedure time. ED Disposition Clinical Impression: Medication refill, Essential hypertension Disposition: DC-01 TO HOME OR SELFCARE Is pt being admited?: No Does the pt Need Aspirin: No Condition: Good Instructions: Hypertension (ED) Prescriptions: amLODIPine [Norvasc] 5 mg PO DAILY #30 tab Referrals: PRIMARY CARE, [Primary Care Provider] - 3-5 Days Forms: Work/School Release Form(ED) Time of Disposition: 07:07
[2017-11-03 07:22] VITALS: BP 159/81
== END 2017-11-03 07:30 | disposition home or self-care (01) ==
LOC: ED 23:36
DX: I10 Essential (primary) hypertension (principal); Z76.0 Encounter for issue of repeat prescription; M19.90 Unspecified osteoarthritis, unspecified site; J44.9 Chronic obstructive pulmonary disease, unspecified; E78.00 Pure hypercholesterolemia, unspecified; K21.9 Gastro-esophageal reflux disease without esophagitis; Z86.73 Personal history of transient ischemic attack (TIA), and cerebral infarction without residual deficits; Z90.49 Acquired absence of other specified parts of digestive tract; Z90.710 Acquired absence of both cervix and uterus; Z87.891 Personal history of nicotine dependence
CPT/HCPCS: 99282

== ENCOUNTER 2017-11-09 17:31 | Emergency (ER) | payer MEDICARE ==
--- NOTE | 2017-11-09 20:28 | Emergency Department Report ---
HPI - General Chief Complaint: Allergic Reaction Time Seen by Provider: 11/09/17 20:13 ED Past Medical Hx - Past Medical History Hx Hypertension: Yes Hx CVA: Yes (TIA) Hx Congestive Heart Failure: No Hx Diabetes: No Hx Renal Disease: Yes Hx Arthritis: Yes Hx Asthma: No Hx COPD: Yes Additional medical history: glaucoma. high cholesterol. G6PD. heart murmur/ MVP. OBESITY, Blind in left eye - Surgical History Hx Cholecystectomy: Yes Additional Surgical History: Hysterectomy 2011. - Social History Smoking Status: Never Smoker Substance Use Type: None - Medications Home Medications: Home Medications Medication Instructions Recorded Confirmed Last Taken Type Valsartan [Diovan] 80 mg PO DAILY 05/29/15 09/17/15 Unknown History Fluconazole [Diflucan TAB] 150 mg PO ONCE #2 tablet 09/17/15 Unknown Rx Pantoprazole [Protonix] 40 mg PO QDAY #30 tablet 10/30/15 Unknown Rx Erythromycin [Erythromycin Ophth 1 applic OP BID #1 tube 09/10/16 Unknown Rx Oint] Ibuprofen [Motrin] 600 mg PO Q8H PRN #30 tablet 09/10/16 Unknown Rx Valsartan [Diovan] 40 mg PO BID #40 tablet 09/10/16 Unknown Rx Acetaminophen/Codeine [Tylenol 1 tab PO Q6H PRN #15 tab 03/24/17 Unknown Rx /Codeine # 3 tab] Diclofenac Sodium [Voltaren] 100 gm TP Q6H #1 gel..gram. 03/24/17 Unknown Rx Clindamycin [Clindamycin CAP] 300 mg PO Q8H 7 Days cap 06/30/17 Unknown Rx Ibuprofen 600 mg PO TID #30 tablet 09/04/17 Unknown Rx cephALEXin [Keflex] 500 mg PO Q12HR #20 cap 09/04/17 Unknown Rx amLODIPine [Norvasc] 5 mg PO DAILY #30 tab 11/03/17 Unknown Rx ED Review of Systems ROS: Stated complaint: ALLERGIC REACTION/DIZZINESS Other details as noted in HPI Physical Exam - Physical Exam Vital Signs: Vital Signs 11/09/17 17:52 Temperature 98.5 F Pulse Rate 80 Respiratory 20 Rate Blood Pressure 189/102 O2 Sat by Pulse 98 Oximetry ED Course Vital Signs 11/09/17 17:52 Temperature 98.5 F Pulse Rate 80 Respiratory 20 Rate Blood Pressure 189/102 O2 Sat by Pulse 98 Oximetry Critical care attestation.: If time is entered above; I have spent that time in minutes in the direct care of this critically ill patient, excluding procedure time. ED Disposition Condition: Stable Referrals: PRIMARY CARE, [Primary Care Provider] - 3-5 Days
[2017-11-09] MEDS ORDERED: BENADRYL IV ONE (20:52)
[2017-11-09] MEDS ORDERED: PEPCID IV ONE (20:52)
[2017-11-09] MEDS ORDERED: SOLU-Medrol IV ONE (20:53)
[2017-11-09] MEDS ORDERED: NACL 0.9% 1000 ML 1,000 ML IV ONE (20:54)
[2017-11-09] MEDS ORDERED: TYLENOL PO ONE (21:22)
[2017-11-09 21:39] LABS: Basophils % (Auto) 0.5 % (0.0-1.8); Eosinophils # (Auto) 0.2 K/mm3 (0.0-0.4); Hemoglobin 12.3 gm/dl (10.1-14.3); Lymphocytes # (Auto) 3.3 K/mm3 (1.2-5.4); Lymphocytes % (Auto) 35.1 % (13.4-35.0); Mean Corpuscular HGB Conc 33 % (30-34); Mean Corpuscular Hemoglobin 31 pg (28-32); Mean Corpuscular Volume 94 fl (79-97); Monocytes % (Auto) 10.3 % (0.0-7.3); Platelet Count 248 K/mm3 (140-440); Red Blood Count 3.94 M/mm3 (3.65-5.03); Red Cell Distribution Width 13.4 % (13.2-15.2)
[2017-11-09 21:50] LABS: Calcium 9.5 mg/dL (8.4-10.2)
--- NOTE | 2017-11-09 22:37 | Emergency Department Report ---
ED General Adult HPI - General Chief complaint: Allergic Reaction Stated complaint: ALLERGIC REACTION/DIZZINESS Time Seen by Provider: 11/09/17 20:13 Source: patient Mode of arrival: Ambulatory Limitations: No Limitations - History of Present Illness Initial comments: Over the past 1-2 weeks, patient has had her blood pressure medication change. She was initially on valsartan, but there was a recall. She was switched to losartan and then to olmesartan due to side effects. Patient started having itching and rashes earlier today. Her doctor told her to come to the ER for evaluation. Of note, she had had a progressive onset right-sided headache that has been intermittent. Associated with photophobia. No numbness/weakness as vision changes. She hasn't taken anything for it because she is concerned about possible side effects, especially since she has G6PD. She has been having her usual dizziness episodes. She saw an ENT doctor for this and was diagnosed with vertigo. She doesn't take anything for it due to concerns that it could react with her G6PD. Severity scale (0 -10): 0 - Related Data Home Medications Medication Instructions Recorded Confirmed Last Taken Valsartan [Diovan] 80 mg PO DAILY 05/29/15 09/17/15 Unknown Previous Rx's Medication Instructions Recorded Last Taken Type Fluconazole [Diflucan TAB] 150 mg PO ONCE #2 tablet 09/17/15 Unknown Rx Pantoprazole [Protonix] 40 mg PO QDAY #30 tablet 10/30/15 Unknown Rx Erythromycin [Erythromycin Ophth 1 applic OP BID #1 tube 09/10/16 Unknown Rx Oint] Ibuprofen [Motrin] 600 mg PO Q8H PRN #30 tablet 09/10/16 Unknown Rx Valsartan [Diovan] 40 mg PO BID #40 tablet 09/10/16 Unknown Rx Acetaminophen/Codeine [Tylenol 1 tab PO Q6H PRN #15 tab 03/24/17 Unknown Rx /Codeine # 3 tab] Diclofenac Sodium [Voltaren] 100 gm TP Q6H #1 gel..gram. 03/24/17 Unknown Rx Clindamycin [Clindamycin CAP] 300 mg PO Q8H 7 Days cap 06/30/17 Unknown Rx Ibuprofen 600 mg PO TID #30 tablet 09/04/17 Unknown Rx cephALEXin [Keflex] 500 mg PO Q12HR #20 cap 09/04/17 Unknown Rx amLODIPine [Norvasc] 5 mg PO DAILY #30 tab 11/03/17 Unknown Rx Meclizine [Antivert] 25 mg PO TID PRN #15 tablet 11/10/17 Unknown Rx amLODIPine [Norvasc] 10 mg PO ONCE #30 tablet 11/10/17 Unknown Rx Allergies Allergy/AdvReac Type Severity Reaction Status Date / Time acetaminophen [From Percocet] Allergy Anaphylaxis Verified 11/09/17 17:52 aspirin Allergy Rash Verified 11/09/17 17:52 ciprofloxacin [From Cipro] Allergy Dizziness Verified 11/09/17 17:52 ciprofloxacin HCl Allergy Dizziness Verified 11/09/17 17:52 [From Cipro] levofloxacin [From Levaquin] Allergy Dizziness Verified 11/09/17 17:52 morphine Allergy Itching Verified 11/09/17 17:52 oxycodone HCl [From Percocet] Allergy Anaphylaxis Verified 11/09/17 17:52 Sulfa (Sulfonamide Allergy Seizure Verified 11/09/17 17:52 Antibiotics) ED Review of Systems ROS: Stated complaint: ALLERGIC REACTION/DIZZINESS Other details as noted in HPI Comment: All other systems reviewed and negative Skin: pruritus Neurological: headache, vertigo Psychiatric: anxiety ED Past Medical Hx - Past Medical History Hx Hypertension: Yes Hx CVA: Yes (TIA) Hx Congestive Heart Failure: No Hx Diabetes: No Hx Renal Disease: Yes Hx Arthritis: Yes Hx Asthma: No Hx COPD: Yes Additional medical history: glaucoma. high cholesterol. G6PD. heart murmur/ MVP. OBESITY, Blind in left eye - Surgical History Hx Cholecystectomy: Yes Additional Surgical History: Hysterectomy 2011. - Social History Smoking Status: Never Smoker Substance Use Type: None - Medications Home Medications: Home Medications Medication Instructions Recorded Confirmed Last Taken Type Valsartan [Diovan] 80 mg PO DAILY 05/29/15 09/17/15 Unknown History Fluconazole [Diflucan TAB] 150 mg PO ONCE #2 tablet 09/17/15 Unknown Rx Pantoprazole [Protonix] 40 mg PO QDAY #30 tablet 10/30/15 Unknown Rx Erythromycin [Erythromycin Ophth 1 applic OP BID #1 tube 09/10/16 Unknown Rx Oint] Ibuprofen [Motrin] 600 mg PO Q8H PRN #30 tablet 09/10/16 Unknown Rx Valsartan [Diovan] 40 mg PO BID #40 tablet 09/10/16 Unknown Rx Acetaminophen/Codeine [Tylenol 1 tab PO Q6H PRN #15 tab 03/24/17 Unknown Rx /Codeine # 3 tab] Diclofenac Sodium [Voltaren] 100 gm TP Q6H #1 gel..gram. 03/24/17 Unknown Rx Clindamycin [Clindamycin CAP] 300 mg PO Q8H 7 Days cap 06/30/17 Unknown Rx Ibuprofen 600 mg PO TID #30 tablet 09/04/17 Unknown Rx cephALEXin [Keflex] 500 mg PO Q12HR #20 cap 09/04/17 Unknown Rx amLODIPine [Norvasc] 5 mg PO DAILY #30 tab 11/03/17 Unknown Rx Meclizine [Antivert] 25 mg PO TID PRN #15 tablet 11/10/17 Unknown Rx amLODIPine [Norvasc] 10 mg PO ONCE #30 tablet 11/10/17 Unknown Rx ED Physical Exam - General Limitations: No Limitations General appearance: alert, in no apparent distress - Head Head exam: Present: atraumatic, normocephalic - Eye Eye exam: Present: normal appearance - ENT ENT exam: Present: mucous membranes moist - Neck Neck exam: Present: normal inspection - Respiratory Respiratory exam: Present: normal lung sounds bilaterally. Absent: respiratory distress - Cardiovascular Cardiovascular Exam: Present: regular rate, normal rhythm. Absent: systolic murmur, diastolic murmur, rubs, gallop - GI/Abdominal GI/Abdominal exam: Present: soft, normal bowel sounds. Absent: distended, tenderness, guarding, rebound, rigid - Extremities Exam Extremities exam: Present: normal inspection - Back Exam Back exam: Present: normal inspection - Neurological Exam Neurological exam: Present: alert, oriented X3, normal gait, other (gross strength 5/5 in all extremities) - Psychiatric Psychiatric exam: Present: normal affect, normal mood, anxious - Skin Skin exam: Present: warm, dry, intact, normal color. Absent: rash ED Course Vital Signs 11/09/17 11/09/17 11/09/17 17:52 20:56 21:01 Temperature 98.5 F 98.3 F Pulse Rate 80 63 71 Respiratory 20 12 18 Rate Blood Pressure 189/102 180/99 Blood Pressure 120/96 [Left] O2 Sat by Pulse 98 100 98 Oximetry 11/09/17 11/09/17 11/10/17 22:01 23:13 00:00 Temperature Pulse Rate 54 L 71 67 Respiratory 12 11 L 13 Rate Blood Pressure 192/69 192/69 137/71 Blood Pressure [Left] O2 Sat by Pulse 99 99 95 Oximetry 11/10/17 11/10/17 11/10/17 01:21 02:00 02:10 Temperature Pulse Rate 80 Respiratory Rate Blood Pressure 124/65 138/70 148/90 Blood Pressure [Left] O2 Sat by Pulse 98 95 Oximetry ED Medical Decision Making - Lab Data Result diagrams: 11/09/17 21:28 11/09/17 21:28 - EKG Data -: EKG Interpreted by Me EKG shows normal: sinus rhythm, axis, intervals, QRS complexes, ST-T waves Rate: normal - EKG Data Interpretation: no acute changes - Medical Decision Making 67-year-old female past medical history of hypertension, G6PD who presents to the ER with concerns for an allergic reaction. Initial vital signs show that the patient's hypertensive at 190/100. Patient states her blood pressure has been going up and down. She is also concern for an allergic reaction. I see no evidence of hives, respiratory distress, or oropharyngeal swelling. Patient has been given Pepcid/Benadryl/Solu-Medrol for possible allergic reaction. She is also endorsing a headache and dizziness. Low suspicion for acute intracranial hemorrhage. EKG is nonischemic. I will treat her headache with a headache cocktail and try the patient on meclizine if she will take it. A reevaluation, patient feels much improved. Her dizziness has resolved. Angulated in the ER without any difficulty. Patient was given Compazine in addition for her headache. I have given her prescription for meclizine to take at home, as well as amlodipine. I am not finding either these medications on the contraindication list for G6PD. Patient will follow up with her family doctor for reevaluation. Clear for discharge. - Differential Diagnosis CVA, ICH, BPPV, dehydration, electrolyte abnormality, anaphylaxis, urticari Critical care attestation.: If time is entered above; I have spent that time in minutes in the direct care of this critically ill patient, excluding procedure time. ED Disposition Clinical Impression: Allergic reaction, Headache, Essential hypertension Disposition: DC-01 TO HOME OR SELFCARE Is pt being admited?: No Does the pt Need Aspirin: No Condition: Stable Instructions: Hypertension (ED) Additional Instructions: Please see your family doctor in 3-5 days to have your blood pressure rechecked. Stop taking your olmesartan. Prescriptions: amLODIPine [Norvasc] 10 mg PO ONCE #30 tablet Meclizine [Antivert] 25 mg PO TID PRN #15 tablet PRN Reason: Vertigo Referrals: PRIMARY CARE,MD [Primary Care Provider] - 3-5 Days
[2017-11-10] MEDS ORDERED: COMPAZINE IV ONE (00:51)
[2017-11-10] MEDS ORDERED: NORVASC PO ONE (01:58)
[2017-11-10 02:10] VITALS: BP 148/90
== END 2017-11-10 02:26 | disposition home or self-care (01) ==
LOC: ED 17:31
DX: T78.40XA Allergy, unspecified, initial encounter (principal); I10 Essential (primary) hypertension; E86.0 Dehydration; Z88.6 Allergy status to analgesic agent; Z88.5 Allergy status to narcotic agent; Z88.2 Allergy status to sulfonamides; Z86.73 Personal history of transient ischemic attack (TIA), and cerebral infarction without residual deficits; J44.9 Chronic obstructive pulmonary disease, unspecified; E78.00 Pure hypercholesterolemia, unspecified; Z90.49 Acquired absence of other specified parts of digestive tract; Z90.710 Acquired absence of both cervix and uterus; X58.XXXA Exposure to other specified factors, initial encounter
CPT/HCPCS: 36415; 80048; 85025; 93005; 93010; 96361; 96374; 96375; 99283; J0780; J1200; J2930; J7030

== ENCOUNTER 2017-11-11 10:10 | Emergency (ER) | payer MEDICARE ==
[2017-11-11] MEDS ORDERED: DECADRON IV ONE (12:58)
[2017-11-11] MEDS ORDERED: NACL 0.9% 1000 ML 1,000 ML IV ONE (12:58)
[2017-11-11] MEDS ORDERED: BENADRYL IV ONE (12:58)
--- NOTE | 2017-11-11 13:18 | Emergency Department Report ---
ED Allergic Reaction HPI - General Chief complaint: Allergic Reaction Stated complaint: ALLERGIC REACTION BP MEDS Time Seen by Provider: 11/11/17 12:51 Source: patient Mode of arrival: Ambulatory Limitations: No Limitations - History of Present Illness Initial Comments: This is a 67-year-old female nontoxic, well nourished in appearance, no acute signs of distress presents to the ED with c/o of itching sensation that stated this morning after taking first dose of Norvasc. Patient states she was here for same due to Losartan and now developed allergies to Norvasc. Patient states it is itching. Patient denies any drooling, hoarseness or facial swelling. Patient denies any trauma. Patient denies any visualize of rash. She denies any fever, chills, nausea, vomiting, chest pain, shortness of breath , headache, stiff neck, numbness or tingling. Patient stated multiple allergies due to G6PD. MD Complaint: allergic reaction -: This morning Exposure: medication Symptoms: itching. denies: rash, facial swelling, lip swelling, difficulty swallowing, difficulty breathing, orolingual swelling, hoarseness, syncopy, dizziness, nausea, vomiting, abdominal pain Treatment Prior to Arrival: none Previous Allergy History: none - Related Data Home Medications Medication Instructions Recorded Confirmed Last Taken Valsartan [Diovan] 80 mg PO DAILY 05/29/15 09/17/15 Unknown Previous Rx's Medication Instructions Recorded Last Taken Type Fluconazole [Diflucan TAB] 150 mg PO ONCE #2 tablet 09/17/15 Unknown Rx Pantoprazole [Protonix] 40 mg PO QDAY #30 tablet 10/30/15 Unknown Rx Erythromycin [Erythromycin Ophth 1 applic OP BID #1 tube 09/10/16 Unknown Rx Oint] Ibuprofen [Motrin] 600 mg PO Q8H PRN #30 tablet 09/10/16 Unknown Rx Valsartan [Diovan] 40 mg PO BID #40 tablet 09/10/16 Unknown Rx Acetaminophen/Codeine [Tylenol 1 tab PO Q6H PRN #15 tab 03/24/17 Unknown Rx /Codeine # 3 tab] Diclofenac Sodium [Voltaren] 100 gm TP Q6H #1 gel..gram. 03/24/17 Unknown Rx Clindamycin [Clindamycin CAP] 300 mg PO Q8H 7 Days cap 04/04/18 Unknown Rx Ibuprofen 600 mg PO TID #30 tablet 09/04/17 Unknown Rx cephALEXin [Keflex] 500 mg PO Q12HR #20 cap 09/04/17 Unknown Rx amLODIPine [Norvasc] 5 mg PO DAILY #30 tab 11/03/17 Unknown Rx Meclizine [Antivert] 25 mg PO TID PRN #15 tablet 11/10/17 Unknown Rx amLODIPine [Norvasc] 10 mg PO ONCE #30 tablet 11/10/17 Unknown Rx Nebivolol HCl [Bystolic] 2.5 mg PO DAILY #30 tablet 11/11/17 Unknown Rx Allergies Allergy/AdvReac Type Severity Reaction Status Date / Time acetaminophen [From Percocet] Allergy Anaphylaxis Verified 11/09/17 17:52 aspirin Allergy Rash Verified 11/09/17 17:52 ciprofloxacin [From Cipro] Allergy Dizziness Verified 11/09/17 17:52 ciprofloxacin HCl Allergy Dizziness Verified 11/09/17 17:52 [From Cipro] levofloxacin [From Levaquin] Allergy Dizziness Verified 11/09/17 17:52 morphine Allergy Itching Verified 11/09/17 17:52 oxycodone HCl [From Percocet] Allergy Anaphylaxis Verified 11/09/17 17:52 Sulfa (Sulfonamide Allergy Seizure Verified 11/09/17 17:52 Antibiotics) ED Review of Systems ROS: Stated complaint: ALLERGIC REACTION BP MEDS Other details as noted in HPI Constitutional: denies: chills, fever Eyes: denies: eye pain, eye discharge, vision change ENT: denies: ear pain, throat pain Respiratory: denies: cough, shortness of breath, wheezing Cardiovascular: denies: chest pain, palpitations Endocrine: no symptoms reported Gastrointestinal: denies: abdominal pain, nausea, diarrhea Genitourinary: denies: urgency, dysuria, discharge Musculoskeletal: denies: back pain, joint swelling, arthralgia Skin: denies: rash, lesions Neurological: denies: headache, weakness, paresthesias Psychiatric: denies: anxiety, depression Hematological/Lymphatic: denies: easy bleeding, easy bruising ED Past Medical Hx - Past Medical History Previous Medical History?: Yes Hx Hypertension: Yes Hx CVA: Yes (TIA) Hx Congestive Heart Failure: No Hx Diabetes: No Hx Renal Disease: Yes Hx Arthritis: Yes Hx Asthma: No Hx COPD: Yes Additional medical history: glaucoma. high cholesterol. G6PD. heart murmur/ MVP. OBESITY, Blind in left eye - Surgical History Past Surgical History?: Yes Hx Cholecystectomy: Yes Additional Surgical History: Hysterectomy 2011. - Social History Smoking Status: Former Smoker Substance Use Type: None - Medications Home Medications: Home Medications Medication Instructions Recorded Confirmed Last Taken Type Valsartan [Diovan] 80 mg PO DAILY 16 09/17/15 Unknown History Fluconazole [Diflucan TAB] 150 mg PO ONCE #2 tablet 09/17/15 Unknown Rx Pantoprazole [Protonix] 40 mg PO QDAY #30 tablet 10/30/15 Unknown Rx Erythromycin [Erythromycin Ophth 1 applic OP BID #1 tube 09/10/16 Unknown Rx Oint] Ibuprofen [Motrin] 600 mg PO Q8H PRN #30 tablet 09/10/16 Unknown Rx Valsartan [Diovan] 40 mg PO BID #40 tablet 09/10/16 Unknown Rx Acetaminophen/Codeine [Tylenol 1 tab PO Q6H PRN #15 tab 03/24/17 Unknown Rx /Codeine # 3 tab] Diclofenac Sodium [Voltaren] 100 gm TP Q6H #1 gel..gram. 03/24/17 Unknown Rx Clindamycin [Clindamycin CAP] 300 mg PO Q8H 7 Days cap 06/30/17 Unknown Rx Ibuprofen 600 mg PO TID #30 tablet 09/04/17 Unknown Rx cephALEXin [Keflex] 500 mg PO Q12HR #20 cap 09/04/17 Unknown Rx amLODIPine [Norvasc] 5 mg PO DAILY #30 tab 11/03/17 Unknown Rx Meclizine [Antivert] 25 mg PO TID PRN #15 tablet 11/10/17 Unknown Rx amLODIPine [Norvasc] 10 mg PO ONCE #30 tablet 11/10/17 Unknown Rx Nebivolol HCl [Bystolic] 2.5 mg PO DAILY #30 tablet 11/11/17 Unknown Rx ED Physical Exam - General Limitations: No Limitations General appearance: alert, in no apparent distress - Head Head exam: Present: atraumatic, normocephalic - Eye Eye exam: Present: normal appearance Pupils: Present: normal accommodation - ENT ENT exam: Present: normal exam, normal orophraynx, mucous membranes moist, TM's normal bilaterally, normal external ear exam, other (no facial swelling. Uvula midline.) - Neck Neck exam: Present: normal inspection, full ROM. Absent: tenderness, meningismus, lymphadenopathy - Respiratory Respiratory exam: Present: normal lung sounds bilaterally. Absent: respiratory distress, wheezes, rales, rhonchi, stridor, chest wall tenderness, accessory muscle use, decreased breath sounds, prolonged expiratory - Cardiovascular Cardiovascular Exam: Present: regular rate, normal rhythm, normal heart sounds. Absent: bradycardia, tachycardia, irregular rhythm, systolic murmur, diastolic murmur, rubs, gallop - GI/Abdominal GI/Abdominal exam: Present: soft, normal bowel sounds. Absent: distended, tenderness, guarding, rebound, rigid, diminished bowel sounds - Rectal Rectal exam: Present: deferred - Extremities Exam Extremities exam: Present: normal inspection, full ROM, normal capillary refill. Absent: tenderness - Back Exam Back exam: Present: normal inspection, full ROM. Absent: tenderness, CVA tenderness (R), CVA tenderness (L), muscle spasm, paraspinal tenderness, vertebral tenderness, rash noted - Neurological Exam Neurological exam: Present: alert, oriented X3, normal gait - Psychiatric Psychiatric exam: Present: normal affect, normal mood - Skin Skin exam: Present: warm, dry, intact, normal color. Absent: rash ED Course Vital Signs 11/11/17 11:03 Temperature 98.2 F Pulse Rate 67 Respiratory 16 Rate Blood Pressure 147/84 O2 Sat by Pulse 98 Oximetry - Reevaluation(s) Reevaluation #1: 11/11/17 13:35 Patient is speaking in full sentences with no signs of distress noted. ED Medical Decision Making - Medical Decision Making This is a 67-year-old female that presents with allergic reaction. Patient is stable was examined by me. There is no facial swelling. No angioedema. There is no cellulitis. No hoarseness. Patient received 1 L normal saline, Benadryl , Decadron in the ED IV. As per [employer], Benadryl and Decadron is "probably safe" for G6PD and patient received during the previous visit with no reaction noted. Patient was instructed not to operate any machinery after discharge due to possible drowsiness of Benadryl. Patient stated that a family member will drive patient home after discharge. Patient ws instructed to discontinue Norvasc due to allergies reaction. I will start patient on bystolic. Patient was discussed with Dr. Mendez which he agrees to the plan of care. Patient was referred to Follow-up with a primary care doctor in 3-5 days or if symptoms worsen and continue return to emergency room as soon as possible. At time of discharge, the patient does not seem toxic or ill in appearance. No acute signs of distress noted. Patient agrees to discharge treatment plan of care. No further questions noted by the patient. Critical care attestation.: If time is entered above; I have spent that time in minutes in the direct care of this critically ill patient, excluding procedure time. ED Disposition Clinical Impression: Allergic reaction Qualifiers: Encounter type: initial encounter Qualified Code(s): T78.40XA - Allergy, unspecified, initial encounter Disposition: TO HOME OR SELFCARE Is pt being admited?: No Does the pt Need Aspirin: No Condition: Stable Instructions: Allergies (ED) Additional Instructions: Follow-up with a primary care doctor in 3-5 days or if symptoms worsen and continue return to emergency room as soon as possible. Stop taking Norvasc as this causes an allergic reaction to you. Start taking Bystolic as prescribed. Keep a daily diary of your blood pressure and present it to your primary care doctor. Prescriptions: Nebivolol HCl [Bystolic] 2.5 mg PO DAILY #30 tablet Referrals: PRIMARY CARE, [Primary Care Provider] - 3-5 Days ARGENTINA CAMILO MD [Staff Physician] - 3-5 Days JENNIFER ANGUIANO MD [Staff Physician] - 3-[address] [facility] [Outside] - 3-[address] [facility] [Outside] - 3-5 Days Forms: Work/School Release Form(ED)
[2017-11-11 14:45] VITALS: BP 133/71
== END 2017-11-11 14:15 | disposition home or self-care (01) ==
LOC: ED 10:10
DX: T46.1X5A Adverse effect of calcium-channel blockers, initial encounter (principal); T14.90XA Injury, unspecified, initial encounter; X58.XXXA Exposure to other specified factors, initial encounter; Y93.9 Activity, unspecified; Y92.89 Other specified places as the place of occurrence of the external cause; Y99.8 Other external cause status; I10 Essential (primary) hypertension; J44.9 Chronic obstructive pulmonary disease, unspecified; E78.00 Pure hypercholesterolemia, unspecified; M19.90 Unspecified osteoarthritis, unspecified site; Z87.891 Personal history of nicotine dependence; Z90.710 Acquired absence of both cervix and uterus; Z90.49 Acquired absence of other specified parts of digestive tract; Z88.6 Allergy status to analgesic agent; Z88.1 Allergy status to other antibiotic agents; Z88.2 Allergy status to sulfonamides
CPT/HCPCS: 96374; 96375; 99282; J1100; J1200; J7030

== ENCOUNTER 2017-11-18 12:13 | Emergency (ER) | payer MEDICARE ==
[2017-11-18 12:50] VITALS: BP 157/94
--- NOTE | 2017-11-18 13:22 | Emergency Department Report ---
ED Allergic Reaction HPI - General Chief complaint: Headache Stated complaint: MEDICATION REACTION Time Seen by Provider: 11/18/17 12:58 Source: patient Mode of arrival: Ambulatory Limitations: No Limitations - History of Present Illness Initial Comments: Patient is a 67-year-old [place] female who is presenting with some very mild itching and headache. Patient states the headache is tension type headache that is been present for the last 2 days. Patient has been off of her blood pressure medications secondary to allergic reaction. Patient has had allergic reactions to multiple blood pressure medications and also has G6PD and cannot take several other blood pressure meds. Patient was told to come to the emergency department yesterday by her primary care physician because allergic reaction. Patient didn't take her meds today still she states the itching is much improved. Patient denies any short of breath chest pain fevers chills nausea vomiting at this time. - Related Data Home Medications Medication Instructions Recorded Confirmed Last Taken Valsartan [Diovan] 80 mg PO DAILY 05/29/15 09/17/15 Unknown Previous Rx's Medication Instructions Recorded Last Taken Type Fluconazole [Diflucan TAB] 150 mg PO ONCE #2 tablet 09/17/15 Unknown Rx Pantoprazole [Protonix] 40 mg PO QDAY #30 tablet 10/30/15 Unknown Rx Erythromycin [Erythromycin Ophth 1 applic OP BID #1 tube 09/10/16 Unknown Rx Oint] Ibuprofen [Motrin] 600 mg PO Q8H PRN #30 tablet 09/10/16 Unknown Rx Valsartan [Diovan] 40 mg PO BID #40 tablet 09/10/16 Unknown Rx Acetaminophen/Codeine [Tylenol 1 tab PO Q6H PRN #15 tab 03/24/17 Unknown Rx /Codeine # 3 tab] Diclofenac Sodium [Voltaren] 100 gm TP Q6H #1 gel..gram. 03/24/17 Unknown Rx Clindamycin [Clindamycin CAP] 300 mg PO Q8H 7 Days cap 06/30/17 Unknown Rx Ibuprofen 600 mg PO TID #30 tablet 09/04/17 Unknown Rx cephALEXin [Keflex] 500 mg PO Q12HR #20 cap 09/04/17 Unknown Rx amLODIPine [Norvasc] 5 mg PO DAILY #30 tab 11/03/17 Unknown Rx Meclizine [Antivert] 25 mg PO TID PRN #15 tablet 11/10/17 Unknown Rx amLODIPine [Norvasc] 10 mg PO ONCE #30 tablet 11/10/17 Unknown Rx Nebivolol HCl [Bystolic] 2.5 mg PO DAILY #30 tablet 11/11/17 Unknown Rx Cetirizine HCl [ZyrTEC] 10 mg PO DAILY #30 capsule 11/18/17 Unknown Rx Metoprolol [Lopressor] 25 mg PO BID #60 tablet 11/18/17 Unknown Rx Allergies Allergy/AdvReac Type Severity Reaction Status Date / Time acetaminophen [From Percocet] Allergy Anaphylaxis Verified 11/09/17 17:52 aspirin Allergy Rash Verified 11/09/17 17:52 ciprofloxacin [From Cipro] Allergy Dizziness Verified 11/09/17 17:52 ciprofloxacin HCl Allergy Dizziness Verified 11/09/17 17:52 [From Cipro] levofloxacin [From Levaquin] Allergy Dizziness Verified 11/09/17 17:52 morphine Allergy Itching Verified 11/09/17 17:52 oxycodone HCl [From Percocet] Allergy Anaphylaxis Verified 11/09/17 17:52 Sulfa (Sulfonamide Allergy Seizure Verified 11/09/17 17:52 Antibiotics) ED Review of Systems ROS: Stated complaint: MEDICATION REACTION Other details as noted in HPI Comment: All other systems reviewed and negative ED Past Medical Hx - Past Medical History Previous Medical History?: Yes Hx Hypertension: Yes Hx CVA: Yes (TIA) Hx Congestive Heart Failure: No Hx Diabetes: No Hx Renal Disease: Yes Hx Arthritis: Yes Hx Asthma: No Hx COPD: Yes Additional medical history: glaucoma. high cholesterol. G6PD. heart murmur/ MVP. OBESITY, Blind in left eye - Surgical History Past Surgical History?: Yes Hx Cholecystectomy: Yes Additional Surgical History: Hysterectomy 2011. - Social History Smoking Status: Former Smoker Substance Use Type: None - Medications Home Medications: Home Medications Medication Instructions Recorded Confirmed Last Taken Type Valsartan [Diovan] 80 mg PO DAILY 05/29/15 09/17/15 Unknown History Fluconazole [Diflucan TAB] 150 mg PO ONCE #2 tablet 09/17/15 Unknown Rx Pantoprazole [Protonix] 40 mg PO QDAY #30 tablet 10/30/15 Unknown Rx Erythromycin [Erythromycin Ophth 1 applic OP BID #1 tube 09/10/16 Unknown Rx Oint] Ibuprofen [Motrin] 600 mg PO Q8H PRN #30 tablet 09/10/16 Unknown Rx Valsartan [Diovan] 40 mg PO BID #40 tablet 09/10/16 Unknown Rx Acetaminophen/Codeine [Tylenol 1 tab PO Q6H PRN #15 tab 03/24/17 Unknown Rx /Codeine # 3 tab] Diclofenac Sodium [Voltaren] 100 gm TP Q6H #1 gel..gram. 03/24/17 Unknown Rx Clindamycin [Clindamycin CAP] 300 mg PO Q8H 7 Days cap 06/30/17 Unknown Rx Ibuprofen 600 mg PO TID #30 tablet 09/04/17 Unknown Rx cephALEXin [Keflex] 500 mg PO Q12HR #20 cap 09/04/17 Unknown Rx amLODIPine [Norvasc] 5 mg PO DAILY #30 tab 11/03/17 Unknown Rx Meclizine [Antivert] 25 mg PO TID PRN #15 tablet 11/10/17 Unknown Rx amLODIPine [Norvasc] 10 mg PO ONCE #30 tablet 11/10/17 Unknown Rx Nebivolol HCl [Bystolic] 2.5 mg PO DAILY #30 tablet 11/11/17 Unknown Rx Cetirizine HCl [ZyrTEC] 10 mg PO DAILY #30 capsule 11/18/17 Unknown Rx Metoprolol [Lopressor] 25 mg PO BID #60 tablet 11/18/17 Unknown Rx ED Physical Exam - General Limitations: No Limitations General appearance: alert, in no apparent distress - Head Head exam: Present: atraumatic, normocephalic - Eye Eye exam: Present: normal appearance - ENT ENT exam: Present: mucous membranes moist - Neck Neck exam: Present: normal inspection - Respiratory Respiratory exam: Present: normal lung sounds bilaterally. Absent: respiratory distress, wheezes, rales, rhonchi - Cardiovascular Cardiovascular Exam: Present: regular rate, normal rhythm. Absent: systolic murmur, diastolic murmur, rubs, gallop - GI/Abdominal GI/Abdominal exam: Present: soft, normal bowel sounds. Absent: distended, tenderness, guarding, rebound - Extremities Exam Extremities exam: Present: normal inspection - Back Exam Back exam: Present: normal inspection - Neurological Exam Neurological exam: Present: alert, oriented X3 - Psychiatric Psychiatric exam: Present: normal affect, normal mood - Skin Skin exam: Present: warm, dry, intact, normal color. Absent: rash ED Course Vital Signs 11/18/17 12:21 Temperature 98.0 F Pulse Rate 77 Respiratory 18 Rate Blood Pressure 157/94 O2 Sat by Pulse 97 Oximetry ED Medical Decision Making - Medical Decision Making Patient has been to the emergency department multiple times secondary to possible allergic reactions to blood pressure meds. Patient has been on valsartan amlodipine end-diastolic in the past. Been taken off all these medications. Patient is primary care physicians told her over the phone prior to her coming here that she was not going to be switched to another blood pressure medicine today because she did not come yesterday for her allergic reaction. Patient's does not appear to have a severe allergic reaction. Patient cannot take Benadryl but can't take Zyrtec and she is requesting a prescription for Zyrtec. Patient has never been on beta norbert did look of metoprolol and there is no coughing with G6PD before the patient will be placed on this medication. Patient be discharged home in stable condition. Critical care attestation.: If time is entered above; I have spent that time in minutes in the direct care of this critically ill patient, excluding procedure time. ED Disposition Clinical Impression: Hypertensive urgency, Allergic reaction Disposition: DC-01 TO HOME OR SELFCARE Is pt being admited?: No Does the pt Need Aspirin: No Condition: Stable Instructions: Hypertension (ED) Prescriptions: Cetirizine HCl [ZyrTEC] 10 mg PO DAILY #30 capsule Metoprolol [Lopressor] 25 mg PO BID #60 tablet Time of Disposition: 13:26
== END 2017-11-18 13:35 | disposition home or self-care (01) ==
LOC: ED 12:13
DX: I16.0 Hypertensive urgency (principal); T46.5X5A Adverse effect of other antihypertensive drugs, initial encounter; I10 Essential (primary) hypertension; M19.90 Unspecified osteoarthritis, unspecified site; J44.9 Chronic obstructive pulmonary disease, unspecified; E78.00 Pure hypercholesterolemia, unspecified; Z86.73 Personal history of transient ischemic attack (TIA), and cerebral infarction without residual deficits; Z90.49 Acquired absence of other specified parts of digestive tract; Z90.710 Acquired absence of both cervix and uterus; Z87.891 Personal history of nicotine dependence; Z88.6 Allergy status to analgesic agent; Z88.1 Allergy status to other antibiotic agents; Z88.2 Allergy status to sulfonamides; Z88.8 Allergy status to other drugs, medicaments and biological substances; Y92.89 Other specified places as the place of occurrence of the external cause
CPT/HCPCS: 99281

== ENCOUNTER 2017-11-20 11:12 | Emergency (ER) | payer MEDICARE ==
--- NOTE | 2017-11-20 13:15 | Emergency Department Report ---
ED General Adult HPI - General Chief complaint: Abdominal Pain Stated complaint: STOMACH PAIN/BP MEDS Time Seen by Provider: 11/20/17 12:32 Source: patient, old records reviewed Mode of arrival: Ambulatory Limitations: No Limitations - History of Present Illness Initial comments: 57 year old female with a past medical history G6PD deficiency, hypertension, TIA, high cholesterol and other chronic medical conditions presents to the hospital complaining of another allergic reaction to another recently prescribed hypertensive medication.. Patient has been here November 03, November 09 , November 11, and November 18 with the same complaints. She initially presented requesting her lisinopril be changed to another blood pressure medication. She was in changed to Norvasc, Bystolic, then Lopressor during her repeated ER visits here and she has continued to complain of a itching sensation secondary to allergic reaction to the prescribed medication. She states she continues to have itching without rash. No airway issues. Yesterday she had significant dizziness and today she had significant epigastric pain prior to arrival. She she attributed C sepsis 2 and allergy to metoprolol and states she has had adverse reactions to beta blockers in the past. She is requesting us to change her medication again and states that she has a appointment with her primary care doctor on the but does not want her blood pressure to increase from discontinuing the medication. Patient vomiting or fever - Related Data Home Medications Medication Instructions Recorded Confirmed Last Taken Valsartan [Diovan] 80 mg PO DAILY 05/29/15 09/17/15 Unknown Previous Rx's Medication Instructions Recorded Last Taken Type Fluconazole [Diflucan TAB] 150 mg PO ONCE #2 tablet 09/17/15 Unknown Rx Pantoprazole [Protonix] 40 mg PO QDAY #30 tablet 10/30/15 Unknown Rx Erythromycin [Erythromycin Ophth 1 applic OP BID #1 tube 09/10/16 Unknown Rx Oint] Ibuprofen [Motrin] 600 mg PO Q8H PRN #30 tablet 09/10/16 Unknown Rx Valsartan [Diovan] 40 mg PO BID #40 tablet 09/10/16 Unknown Rx Acetaminophen/Codeine [Tylenol 1 tab PO Q6H PRN #15 tab 03/24/17 Unknown Rx /Codeine # 3 tab] Diclofenac Sodium [Voltaren] 100 gm TP Q6H #1 gel..gram. 03/24/17 Unknown Rx Clindamycin [Clindamycin CAP] 300 mg PO Q8H 7 Days cap 06/30/17 Unknown Rx Ibuprofen 600 mg PO TID #30 tablet 09/04/17 Unknown Rx cephALEXin [Keflex] 500 mg PO Q12HR #20 cap 09/04/17 Unknown Rx amLODIPine [Norvasc] 5 mg PO DAILY #30 tab 11/03/17 Unknown Rx Meclizine [Antivert] 25 mg PO TID PRN #15 tablet 11/10/17 Unknown Rx amLODIPine [Norvasc] 10 mg PO ONCE #30 tablet 11/10/17 Unknown Rx Nebivolol HCl [Bystolic] 2.5 mg PO DAILY #30 tablet 11/11/17 Unknown Rx Cetirizine HCl [ZyrTEC] 10 mg PO DAILY #30 capsule 11/18/17 Unknown Rx Labetalol [Normodyne TAB] 100 mg PO BID #14 tablet 11/20/17 Unknown Rx Allergies Allergy/AdvReac Type Severity Reaction Status Date / Time acetaminophen [From Percocet] Allergy Anaphylaxis Verified 11/09/17 17:52 aspirin Allergy Rash Verified 11/09/17 17:52 ciprofloxacin [From Cipro] Allergy Dizziness Verified 11/09/17 17:52 ciprofloxacin HCl Allergy Dizziness Verified 11/09/17 17:52 [From Cipro] levofloxacin [From Levaquin] Allergy Dizziness Verified 11/09/17 17:52 morphine Allergy Itching Verified 11/09/17 17:52 oxycodone HCl [From Percocet] Allergy Anaphylaxis Verified 11/09/17 17:52 Sulfa (Sulfonamide Allergy Seizure Verified 11/09/17 17:52 Antibiotics) ED Review of Systems ROS: Stated complaint: STOMACH PAIN/BP MEDS Other details as noted in HPI Comment: All other systems reviewed and negative ED Past Medical Hx - Past Medical History Hx Hypertension: Yes Hx CVA: Yes (TIA) Hx Congestive Heart Failure: No Hx Diabetes: No Hx Renal Disease: Yes Hx Arthritis: Yes Hx Asthma: No Hx COPD: Yes Additional medical history: glaucoma. high cholesterol. G6PD. heart murmur/ MVP. OBESITY, Blind in left eye - Surgical History Hx Cholecystectomy: Yes Additional Surgical History: Hysterectomy 2011. - Social History Smoking Status: Former Smoker Substance Use Type: None - Medications Home Medications: Home Medications Medication Instructions Recorded Confirmed Last Taken Type Valsartan [Diovan] 80 mg PO DAILY 05/29/15 09/17/15 Unknown History Fluconazole [Diflucan TAB] 150 mg PO ONCE #2 tablet 09/17/15 Unknown Rx Pantoprazole [Protonix] 40 mg PO QDAY #30 tablet 10/30/15 Unknown Rx Erythromycin [Erythromycin Ophth 1 applic OP BID #1 tube 09/10/16 Unknown Rx Oint] Ibuprofen [Motrin] 600 mg PO Q8H PRN #30 tablet 09/10/16 Unknown Rx Valsartan [Diovan] 40 mg PO BID #40 tablet 09/10/16 Unknown Rx Acetaminophen/Codeine [Tylenol 1 tab PO Q6H PRN #15 tab 03/24/17 Unknown Rx /Codeine # 3 tab] Diclofenac Sodium [Voltaren] 100 gm TP Q6H #1 gel..gram. 03/24/17 Unknown Rx Clindamycin [Clindamycin CAP] 300 mg PO Q8H 7 Days cap 06/30/17 Unknown Rx Ibuprofen 600 mg PO TID #30 tablet 09/04/17 Unknown Rx cephALEXin [Keflex] 500 mg PO Q12HR #20 cap 09/04/17 Unknown Rx amLODIPine [Norvasc] 5 mg PO DAILY #30 tab 11/03/17 Unknown Rx Meclizine [Antivert] 25 mg PO TID PRN #15 tablet 11/10/17 Unknown Rx amLODIPine [Norvasc] 10 mg PO ONCE #30 tablet 11/10/17 Unknown Rx Nebivolol HCl [Bystolic] 2.5 mg PO DAILY #30 tablet 11/11/17 Unknown Rx Cetirizine HCl [ZyrTEC] 10 mg PO DAILY #30 capsule 11/18/17 Unknown Rx Labetalol [Normodyne TAB] 100 mg PO BID #14 tablet 11/20/17 Unknown Rx ED Physical Exam - General Limitations: No Limitations - Other Other exam information: General: No limitations, patient is alert in no acute distress Head exam: Atraumatic, normocephalic Eyes exam: Normal appearance ENT: Moist mucous membrane, normal oropharynx Neck exam: Normal inspection, full range of motion, no meningismus nontender Respiratory exam: Clear to auscultation bilateral, no wheezes, rales, crackles Cardiovascular: Normal rate and rhythm, normal heart sounds Abdomen: Soft, nondistended, mild epigastric tenderness, with normal bowel sounds, no rebound, or guarding Extremity: Full range of motion normal inspection no deformity Back: Normal Inspection, full range of motion, no tenderness Neurologic: Alert, oriented x3, cranial nerves intact, no motor or sensory deficit Psychiatric: normal affect, normal mood Skin: Warm, dry, intact, no rash ED Course Vital Signs 11/20/17 11:19 Temperature 98.3 F Pulse Rate 67 Respiratory 18 Rate Blood Pressure 127/75 O2 Sat by Pulse 99 Oximetry ED Medical Decision Making - Medical Decision Making Patient does not have any clinical signs of allergic reaction other than pruritus without rash. Patient has mild epigastric tenderness without associated symptoms at this time. I was initially on a place patient on clonidine but she states she cannot take that either because she can't wake up while taking that medication. She is agreeable to trying labetalol - Differential Diagnosis allergic reaction, medication reaction, conversion disorder/hysteria Critical Care Time: No Critical care attestation.: If time is entered above; I have spent that time in minutes in the direct care of this critically ill patient, excluding procedure time. ED Disposition Clinical Impression: G6PD deficiency, HTN (hypertension), Adverse drug reaction, Abdominal pain Disposition: -01 TO HOME OR SELFCARE Is pt being admited?: No Does the pt Need Aspirin: No Condition: Stable Instructions: Abdominal Pain (ED), Hypertension (ED) Additional Instructions: You have been provided a one-week supply of labetelol 100 mg twice a day. Follow-up with the doctor as scheduled on Wednesday to determine if they want to continue this medication or changed to an alternative blood pressure medication. Prescriptions: Labetalol [Normodyne TAB] 100 mg PO BID #14 tablet Referrals: PRIMARY CARE [Primary Care Provider] - 11/23/17 Time of Disposition: 13:24
[2017-11-20 13:49] VITALS: BP 137/82
== END 2017-11-20 13:49 | disposition home or self-care (01) ==
LOC: ED 11:12
DX: L29.9 Pruritus, unspecified (principal); T44.7X5A Adverse effect of beta-adrenoreceptor antagonists, initial encounter; M19.90 Unspecified osteoarthritis, unspecified site; I10 Essential (primary) hypertension; R10.13 Epigastric pain; D55.0 Anemia due to glucose-6-phosphate dehydrogenase [G6PD] deficiency; J44.9 Chronic obstructive pulmonary disease, unspecified; Z87.891 Personal history of nicotine dependence; Z86.73 Personal history of transient ischemic attack (TIA), and cerebral infarction without residual deficits; Z90.710 Acquired absence of both cervix and uterus; Z90.49 Acquired absence of other specified parts of digestive tract; E78.00 Pure hypercholesterolemia, unspecified; Z88.1 Allergy status to other antibiotic agents; Z88.5 Allergy status to narcotic agent; Z88.6 Allergy status to analgesic agent; Z88.2 Allergy status to sulfonamides; Y92.89 Other specified places as the place of occurrence of the external cause
CPT/HCPCS: 99281

== ENCOUNTER 2018-07-06 08:37 | Emergency (ER) | payer MEDICARE ==
--- NOTE | 2018-07-06 09:22 | Emergency Department Report ---
ED Recheck HPI - General Chief Complaint: Chest Pain Stated Complaint: HBP/CHEST/BACK PAIN Time Seen by Provider: 07/06/18 09:18 Source: patient Mode of arrival: Ambulatory Limitations: No Limitations - History of Present Illness Initial Comments: Patient is a pleasant 68-year-old who comes to the ER from her physical therapy appointment with various complaints of pain starting in her gums clear down to her back. As it turns out I think the crux of the situation as the patient was recently told that she had a tumor and this has waited on her and she is convinced that she has cancer. She does follow with her primary care physician who is in the process of getting a CT done but is taking some weeks. Patient is awake alert and oriented she is neurologically intact. Her vital signs are stable. She is afebrile. She had a cardiac workup in 2012 with normal coronaries. She has no significant lung disease. She does have hypertension and chronic kidney disease. She also has chronic pain for which she is in physical therapy for. - Related Data Previous Rx's Medication Instructions Recorded Last Taken Type Meclizine [Antivert] 25 mg PO TID PRN #15 tablet 11/10/17 Unknown Rx Allergies Allergy/AdvReac Type Severity Reaction Status Date / Time acetaminophen [From Percocet] Allergy Anaphylaxis Verified 07/06/18 08:41 aspirin Allergy Rash Verified 07/06/18 08:41 ciprofloxacin [From Cipro] Allergy Dizziness Verified 07/06/18 08:41 ciprofloxacin HCl Allergy Dizziness Verified 07/06/18 08:41 [From Cipro] levofloxacin [From Levaquin] Allergy Dizziness Verified 07/06/18 08:41 morphine Allergy Itching Verified 07/06/18 08:41 oxycodone HCl [From Percocet] Allergy Anaphylaxis Verified 07/06/18 08:41 Sulfa (Sulfonamide Allergy Seizure Verified 07/06/18 08:41 Antibiotics) ED Review of Systems ROS: Stated complaint: HBP/CHEST/BACK PAIN Other details as noted in HPI Comment: All other systems reviewed and negative ED Past Medical Hx - Past Medical History Hx Hypertension: Yes Hx CVA: Yes (TIA) Hx Congestive Heart Failure: No Hx Diabetes: No Hx Renal Disease: Yes Hx Arthritis: Yes Hx Asthma: No Hx COPD: Yes Additional medical history: glaucoma. high cholesterol. G6PD. heart murmur/ MVP. OBESITY, Blind in left eye - Surgical History Hx Cholecystectomy: Yes Additional Surgical History: Hysterectomy 2012. - Social History Smoking Status: Never Smoker Substance Use Type: None - Medications Home Medications: Home Medications Medication Instructions Recorded Confirmed Last Taken Type Meclizine [Antivert] 25 mg PO TID PRN #15 tablet 11/10/17 Unknown Rx ED Physical Exam - General Limitations: No Limitations General appearance: alert - Head Head exam: Present: atraumatic - Eye Eye exam: Present: normal appearance - ENT ENT exam: Present: mucous membranes moist - Neck Neck exam: Present: normal inspection - Respiratory Respiratory exam: Present: normal lung sounds bilaterally - Cardiovascular Cardiovascular Exam: Present: regular rate - GI/Abdominal GI/Abdominal exam: Present: soft - Rectal Rectal exam: Present: deferred - Extremities Exam Extremities exam: Present: normal inspection, full ROM - Back Exam Back exam: Present: normal inspection, full ROM - Neurological Exam Neurological exam: Present: alert, oriented X3 - Psychiatric Psychiatric exam: Present: normal affect, normal mood - Skin Skin exam: Present: warm, dry, intact ED Course Vital Signs 07/06/18 07/06/18 08:41 10:52 Temperature 98.4 F Pulse Rate 82 60 Respiratory 18 Rate Blood Pressure 180/80 Blood Pressure 148/78 [Right] ED Recheck MDM - Core Measures Measure Exclusions: not indicated - Differential Diagnosis RO MALIGNANCY - Medical Decision Making LABS NOTED A/C RI CT NOTED PT DC HOME WITH PCP FOLLOW UP VSS NAD Labs 07/06/18 07/06/18 09:37 09:37 WBC 7.4 RBC 3.56 L Hgb 11.4 Hct 33.4 MCV 94 MCH 32 MCHC 34 RDW 13.3 Plt Count 240 Sodium 142 Potassium 4.3 Chloride 108.5 H Carbon Dioxide 22 Anion Gap 16 BUN 21 H Creatinine 1.3 H Estimated GFR 49 BUN/Creatinine Ratio 16 Glucose 116 H Calcium 9.1 Total Bilirubin 0.40 AST 11 ALT 10 Alkaline Phosphatase 64 Troponin T < 0.010 Total Protein 7.0 Albumin 4.0 Albumin/Globulin Ratio 1.3 Vital Signs 07/06/18 07/06/18 08:41 10:52 Temperature 98.4 F Pulse Rate 82 60 Respiratory 18 Rate Blood Pressure 180/80 Blood Pressure 148/78 [Right] Critical care attestation.: If time is entered above; I have spent that time in minutes in the direct care of this critically ill patient, excluding procedure time. ED Disposition Clinical Impression: Renal insufficiency, HTN (hypertension), Adrenal adenoma Disposition: DC- TO HOME OR SELFCARE Is pt being admited?: No Does the pt Need Aspirin: No Condition: Stable Instructions: Hypertension (ED) Additional Instructions: FOLLOW UP PCP WE DISCUSSED DIET AND ACTIVITY TOLERATED CONTINUE BLOOD PRESSURE MEDICATIONS LOW FAT LOW SALT DIET Referrals: PRIMARY CARE [Primary Care Provider] - 3-5 Days Time of Disposition: 10:25
[2018-07-06] MEDS ORDERED: IBUPROFEN PO ONE (09:24)
[2018-07-06 09:48] LABS: Hematocrit 33.4 % (30.3-42.9); Hemoglobin 11.4 gm/dl (10.1-14.3); Mean Corpuscular HGB Conc 34 % (30-34); Mean Corpuscular Volume 94 fl (79-97); Platelet Count 240 K/mm3 (140-440); Red Blood Count 3.56 M/mm3 (3.65-5.03); Red Cell Distribution Width 13.3 % (13.2-15.2)
[2018-07-06 10:13] LABS: Alanine Aminotransferase 10 units/L (7-56); BUN/Creatinine Ratio 16; Blood Urea Nitrogen 21 mg/dL (7-17); Calcium 9.1 mg/dL (8.4-10.2); Hemolysis Index 4
--- NOTE | 2018-07-06 10:23 | Cat Scan Report ---
CT ABDOMEN PELVIS WITHOUT CONTRAST: HISTORY: abdominal pain. COMPARISON: none. TECHNIQUE: Helical CT in 1.25mm intervals without IV contrast. Sagittal and coronal reconstructions. FINDINGS: Lung bases: Normal. Liver: Normal. Biliary system: Cholecystectomy changes. No biliary dilatation. Pancreas: Normal. Spleen: Normal. Kidneys/ureters/bladder: There are 2 cysts in the left kidney measuring 2.0 cm and 2.5 cm. The kidneys, collecting systems and bladder are within normal limits otherwise. Adrenal glands: The right adrenal gland is normal. A 1 cm low density nodule is identified in the left adrenal gland which probably represents an adrenal adenoma. Aorta: Normal. Intestines: There are multiple diverticula in the distal colon. No acute inflammatory changes. The remaining bowel loops are within normal limits given no oral contrast was administered. Appendix: Not identified. Pelvic viscera: Hysterectomy changes. Ascites: None. Adenopathy: None. Musculoskeletal: Mild thoracolumbar spondylosis. Grade 1 anterolisthesis of L4 with respect to L5 is noted and appears to be secondary to degenerative facet arthropathy. No fracture or suspicious bony lesion. IMPRESSION: No acute process is identified in the abdomen or pelvis. Surgical changes as described. Diverticulosis of the distal colon. Left adrenal adenoma. Left renal cysts. Degenerative changes in the spine as described.
[2018-07-06 10:53] VITALS: BP 148/78
== END 2018-07-06 10:54 | disposition home or self-care (01) ==
LOC: ED 08:37
DX: D35.00 Benign neoplasm of unspecified adrenal gland (principal); K06.8 Other specified disorders of gingiva and edentulous alveolar ridge; N28.9 Disorder of kidney and ureter, unspecified; I10 Essential (primary) hypertension; J44.9 Chronic obstructive pulmonary disease, unspecified; E78.00 Pure hypercholesterolemia, unspecified; E66.9 Obesity, unspecified; Z90.49 Acquired absence of other specified parts of digestive tract; Z86.73 Personal history of transient ischemic attack (TIA), and cerebral infarction without residual deficits; Z90.710 Acquired absence of both cervix and uterus; Z88.6 Allergy status to analgesic agent; Z88.1 Allergy status to other antibiotic agents; Z88.5 Allergy status to narcotic agent; Z88.2 Allergy status to sulfonamides
CPT/HCPCS: 36415; 74176; 80053; 84484; 85027; 93005; 93010

== ENCOUNTER 2019-12-25 17:31 | Emergency (ER) | payer MEDICARE, OTHER ==
[2019-12-25 17:57] VITALS: BP 154/89
--- NOTE | 2019-12-25 23:16 | XRay Report ---
CHEST 2 VIEWS INDICATION / CLINICAL INFORMATION: Chest pain, heart palpitations. COMPARISON: 12/18/2019 FINDINGS: SUPPORT DEVICES: None. HEART / MEDIASTINUM: No significant abnormality. LUNGS / PLEURA: Stable mild linear scarring left lower lung. No acute findings. No pneumothorax. ADDITIONAL FINDINGS: No significant additional findings. IMPRESSION: 1. No acute findings. Signer Name: Maury Goddard MD Signed: 12/25/2019 11:12 PM Workstation Name: [id number]
--- NOTE | 2019-12-25 23:26 | Emergency Department Report ---
ED Palpitations HPI - General Chief Complaint: Arrhythmia/Palpitations Stated Complaint: HEART PALPITATION/BLOOD PRESURE Time Seen by Provider: 12/25/19 23:12 Source: patient Mode of arrival: Ambulatory Limitations: No Limitations - History of Present Illness Initial Comments: This is a 69-year-old female with history of mitral valve prolapse, arthritis, TIA, diabetes mellitus, hypertension, glaucoma, hypercholesterolemia, G6PD, blindness in left eye who presents with palpitations for the past week. Due to several medication allergies, she has been only able to tolerate spironolactone and ARB for blood pressure control. Valsartan has been her medication of choice for the past 20 years. Since recent recall of valsartan, her primary care physician has tried multiple agents to control her blood pressure. Patient recently was started on prescribed hydralazine by her PCP. Patient feels that this new medication is causing palpitations and anxiety. She also concerned that her blood pressure was 177/117 this morning. She felt that that was exceedingly high. She is currently pain-free. She currently symptom-free. No history of arrhythmia. No history of KS. MD Complaint: rapid heart beat, "heart racing" -: Gradual, week(s) (1) Context: occured during rest Arrythmia History: other (No history of arrhythmia, new medication hydralazine initiated 1 week ago) Associated Symptoms: denies other symptoms - Related Data Previous Rx's Medication Instructions Recorded Last Taken Type Meclizine [Antivert] 25 mg PO TID PRN #15 tablet 10/20/19 Unknown Rx Allergies Allergy/AdvReac Type Severity Reaction Status Date / Time acetaminophen [From Percocet] Allergy Anaphylaxis Verified 07/06/18 08:41 aspirin Allergy Rash Verified 07/06/18 08:41 ciprofloxacin [From Cipro] Allergy Dizziness Verified 07/06/18 08:41 ciprofloxacin HCl Allergy Dizziness Verified 07/06/18 08:41 [From Cipro] levofloxacin [From Levaquin] Allergy Dizziness Verified 07/06/18 08:41 morphine Allergy Itching Verified 07/06/18 08:41 oxycodone HCl [From Percocet] Allergy Anaphylaxis Verified 07/06/18 08:41 Sulfa (Sulfonamide Allergy Seizure Verified 07/06/18 08:41 Antibiotics) ED Review of Systems ROS: Stated complaint: HEART PALPITATION/BLOOD PRESURE Other details as noted in HPI Comment: All other systems reviewed and negative Constitutional: denies: fever, malaise Respiratory: denies: cough, shortness of breath Cardiovascular: palpitations. denies: chest pain Gastrointestinal: denies: abdominal pain, nausea, vomiting ED Past Medical Hx - Past Medical History Previous Medical History?: Yes Hx Hypertension: Yes Hx CVA: Yes (TIA) Hx Congestive Heart Failure: No Hx Diabetes: Yes Hx Renal Disease: Yes Hx Arthritis: Yes Hx Asthma: No Hx COPD: Yes Additional medical history: glaucoma. high cholesterol. G6PD. heart murmur/ MVP. OBESITY, Blind in left eye - Surgical History Past Surgical History?: Yes Hx Cholecystectomy: Yes Additional Surgical History: Hysterectomy 2011. - Social History Smoking Status: Never Smoker Substance Use Type: None - Medications Home Medications: Home Medications Medication Instructions Recorded Confirmed Last Taken Type Meclizine [Antivert] 25 mg PO TID PRN #15 tablet 10/20/19 Unknown Rx ED Physical Exam - General Limitations: No Limitations General appearance: alert, in no apparent distress - Head Head exam: Present: atraumatic, normocephalic - Eye Eye exam: Present: other (Left eye: cornea opaque) - ENT ENT exam: Present: mucous membranes moist - Neck Neck exam: Present: normal inspection, full ROM - Respiratory Respiratory exam: Present: normal lung sounds bilaterally. Absent: respiratory distress, wheezes, rales, rhonchi - Cardiovascular Cardiovascular Exam: Present: regular rate, normal rhythm, normal heart sounds. Absent: systolic murmur, diastolic murmur, rubs, gallop - GI/Abdominal GI/Abdominal exam: Present: soft, normal bowel sounds. Absent: distended, tenderness, guarding, rebound - Extremities Exam Extremities exam: Present: normal inspection - Neurological Exam Neurological exam: Present: alert, oriented X3 - Psychiatric Psychiatric exam: Present: normal affect, normal mood - Skin Skin exam: Present: warm, dry, intact, normal color. Absent: rash ED Course Vital Signs 12/25/19 17:53 Temperature 99.2 F Pulse Rate 84 Respiratory 20 Rate Blood Pressure 154/89 O2 Sat by Pulse 98 Oximetry ED Medical Decision Making - EKG Data EKG shows normal: sinus rhythm, axis, intervals, QRS complexes, ST-T waves Rate: normal - EKG Data Interpretation: normal EKG 09/28/20 23:27 EKG obtained 1802 EKG interpreted by me Normal sinus rhythm normal rate normal axis normal intervals no ST elevation no ST-T signs of ischemia normal EKG rate 85 bpm - Radiology Data Radiology results: report reviewed Chest radiograph PA lateral: My personal interpretation no infiltrate normal cardiac silhouette no pneumothorax no effusion - Medical Decision Making Ms. Del Toro is a 61-year-old female with history of hypertension with new medication change. She feels that hydralazine is causing adverse effect of palpitations. EKG was normal. I do not suspect lethal arrhythmia such as ventricular tachycardia. I do not suspect atrial fibrillation considering the nature of her symptoms. She is currently symptom-free. I do not suspect pulmonary embolism or ACS from this presentation. I have advised her to discontinue hydralazine until she communicates with her PCP. I also advised her to resume her previous dose of spironolactone. Critical care attestation.: If time is entered above; I have spent that time in minutes in the direct care of this critically ill patient, excluding procedure time. ED Disposition Clinical Impression: Palpitation, Medication adverse effect, History of hypertension Disposition: DC-01 TO HOME OR SELFCARE Is pt being admited?: No Does the pt Need Aspirin: No Condition: Stable Instructions: Palpitations (ED) Referrals: PRIMARY CARE, [Primary Care Provider] - 3-5 Days
== END 2019-12-25 23:35 | disposition home or self-care (01) ==
LOC: ED 17:31
DX: T50.995A Adverse effect of other drugs, medicaments and biological substances, initial encounter (principal); I10 Essential (primary) hypertension; R00.2 Palpitations; Z88.6 Allergy status to analgesic agent; Z88.8 Allergy status to other drugs, medicaments and biological substances; Z88.1 Allergy status to other antibiotic agents; Y92.89 Other specified places as the place of occurrence of the external cause
CPT/HCPCS: 71046; 93005

== ENCOUNTER 2020-06-04 11:23 | Emergency (ER) | payer MEDICARE ==
--- NOTE | 2020-06-04 12:30 | Event Note ---
ED Screening Note Date of service: 06/04/20 Time: 12:28 ED Screening Note: 70-year-old female presents to the ER with complaints of elevated blood pressure since last night. Patient states that she is on spironolactone for blood pressure. She states that her fixed wing pilot recently changed dosing from 25 mg twice a day to 50 mg twice a day. This change occurred a couple days ago but she did not start taking the medication until last night. Patient states that her blood pressure last night before taking the medication was 220/110. She states that has been fluctuating all this morning 160s to 170s systolic over 100s to 120s diastolic. She states that she called her fixed wing pilot and he recommended she come to the ER. She states that she had some mild intermittent left-sided chest pain last night but this has since resolved. Reports no other symptoms. Past medical history significant for hypertension, stage III renal disease, G6PD deficiency, diabetes, COPD, TIA and mitral valve prolapse. This initial assessment/diagnostic orders/clinical plan/treatment(s) is/are subject to change based on patients health status, clinical progression and re- assessment by fellow clinical providers in the ED. Further treatment and workup at subsequent clinical providers discretion. Patient/guardian urged not to elope from the ED as their condition may be serious if not clinically assessed and managed. Initial orders include: Cardiac work-up
--- NOTE | 2020-06-04 12:56 | XRay Report ---
CHEST 2 VIEWS INDICATION: Chest Pain. COMPARISON: 12/25/2019 FINDINGS: Support devices: None. Heart: Within normal limits. Lungs/pleura: No acute air space or interstitial disease. No pneumothorax. Stable linear scarring in the lingula. Additional findings: None. IMPRESSION: No acute findings. Signer Name: Mt Llamas Jr, MD Signed: 06/04/2020 12:52 PM Workstation Name: [id number]
[2020-06-04 12:59] LABS: Basophils % (Auto) 0.4 % (0.0-1.8); Eosinophils # (Auto) 0.1 K/mm3 (0.0-0.4); Eosinophils % (Auto) 1.5 % (0.0-4.3); Hematocrit 34.1 % (30.3-42.9); Hemoglobin 11.6 gm/dl (10.1-14.3); Lymphocytes # (Auto) 2.4 K/mm3 (1.2-5.4); Lymphocytes % (Auto) 28.4 % (13.4-35.0); Mean Corpuscular HGB Conc 34 % (30-34); Mean Corpuscular Volume 94 fl (79-97); Monocytes # (Auto) 0.7 K/mm3 (0.0-0.8); Monocytes % (Auto) 8.8 % (0.0-7.3); Platelet Count 263 K/mm3 (140-440); Red Blood Count 3.61 M/mm3 (3.65-5.03); Red Cell Distribution Width 13.5 % (13.2-15.2)
[2020-06-04 13:24] LABS: Alanine Aminotransferase 10 units/L (7-56); Albumin 4.4 g/dL (3.9-5); BUN/Creatinine Ratio 12; Blood Urea Nitrogen 17 mg/dL (7-17); Calcium 9.5 mg/dL (8.4-10.2); Hemolysis Index 5
--- NOTE | 2020-06-04 18:15 | Emergency Department Report ---
ED General Adult HPI - General Chief complaint: High BP Stated complaint: HYPRETENSIVE Time Seen by Provider: 06/04/20 12:27 Source: patient Mode of arrival: Ambulatory Limitations: No Limitations - History of Present Illness Initial comments: Patient is a 70-year-old female who presents emergency room complaints of hypertension. She states that her log manager has her on spironolactone 25 mg daily, she states over the last couple weeks that her blood pressure has been fluctuating. She states that a couple days ago her log manager increase her s pironolactone from 25 mg daily to 50 mg daily. 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 She states that last night her blood pressure was again fluctuating and it was 220/110 and 174/100. She states that she called [facility] and spoke with a nurse and they advised her to be seen in the emergency department. She states that her only symptoms last night was that she had a lot of increased gas and belching and felt like she had some mild palpitations. She denies any symptoms at all currently. She denies any chest pain, shortness of breath, leg swelling, headache, vision changes, numbness, weakness. She has a past medical history of CKD, G6PD,and hypertension. She has an allergy to Percocet, ciprofloxacin, levofloxacin, morphine, sulfa. - Related Data Previous Rx's Medication Instructions Recorded Last Taken Type Meclizine [Antivert] 25 mg PO TID PRN #15 tablet 10/20/19 Unknown Rx Allergies Allergy/AdvReac Type Severity Reaction Status Date / Time acetaminophen [From Percocet] Allergy Anaphylaxis Verified 07/06/18 08:41 aspirin Allergy Rash Verified 07/06/18 08:41 ciprofloxacin [From Cipro] Allergy Dizziness Verified 07/06/18 08:41 ciprofloxacin HCl Allergy Dizziness Verified 07/06/18 08:41 [From Cipro] levofloxacin [From Levaquin] Allergy Dizziness Verified 07/06/18 08:41 morphine Allergy Itching Verified 07/06/18 08:41 oxycodone HCl [From Percocet] Allergy Anaphylaxis Verified 07/06/18 08:41 Sulfa (Sulfonamide Allergy Seizure Verified 07/06/18 08:41 Antibiotics) ED Review of Systems ROS: Stated complaint: HYPRETENSIVE Other details as noted in HPI Comment: All other systems reviewed and negative ED Past Medical Hx - Past Medical History Previous Medical History?: Yes Hx Hypertension: Yes Hx CVA: Yes (TIA) Hx Congestive Heart Failure: No Hx Diabetes: Yes Hx Renal Disease: Yes Hx Arthritis: Yes Hx Asthma: No Hx COPD: Yes Additional medical history: glaucoma. high cholesterol. G6PD. heart murmur/ MVP. OBESITY, Blind in left eye - Surgical History Past Surgical History?: Yes Hx Cholecystectomy: Yes Additional Surgical History: Hysterectomy 2011. - Social History Smoking Status: Never Smoker Substance Use Type: None - Medications Home Medications: Home Medications Medication Instructions Recorded Confirmed Last Taken Type Meclizine [Antivert] 25 mg PO TID PRN #15 tablet 10/20/19 Unknown Rx ED Physical Exam - General Limitations: No Limitations General appearance: alert, in no apparent distress - Head Head exam: Present: atraumatic, normocephalic - Eye Eye exam: Present: normal appearance - ENT ENT exam: Present: mucous membranes moist - Respiratory Respiratory exam: Present: normal lung sounds bilaterally. Absent: respiratory distress, wheezes, rales, rhonchi, stridor, chest wall tenderness, accessory muscle use, decreased breath sounds, prolonged expiratory - Cardiovascular Cardiovascular Exam: Present: regular rate, normal rhythm, normal heart sounds. Absent: systolic murmur, diastolic murmur, rubs, gallop - Neurological Exam Neurological exam: Present: alert, oriented X3, CN II-XII intact, normal gait. Absent: motor sensory deficit - Psychiatric Psychiatric exam: Present: normal affect, normal mood - Skin Skin exam: Present: warm, dry, intact ED Course Vital Signs 06/04/20 06/04/20 12:30 18:15 Temperature 98.5 F Pulse Rate 71 80 Respiratory 18 Rate Blood Pressure 165/83 Blood Pressure 160/76 [Left] O2 Sat by Pulse 99 99 Oximetry ED Medical Decision Making - Lab Data Result diagrams: 06/04/20 12:40 06/04/20 12:40 Lab Results 06/04/20 06/04/20 06/04/20 Range/Units 12:40 12:40 15:34 WBC 8.3 (4.5-11.0) K/mm3 RBC 3.61 L (3.65-5.03) M/mm3 Hgb 11.6 (10.1-14.3) gm/dl Hct 34.1 (30.3-42.9) % MCV 94 (79-97) fl MCH 32 (28-32) pg MCHC 34 (30-34) % RDW 13.5 (13.2-15.2) % Plt Count 263 (140-440) K/mm3 Lymph % (Auto) 28.4 (13.4-35.0) % Carlton % (Auto) 8.8 H (0.0-7.3) % Eos % (Auto) 1.5 (0.0-4.3) % Baso % (Auto) 0.4 (0.0-1.8) % Lymph # (Auto) 2.4 (1.2-5.4) K/mm3 Carlton # (Auto) 0.7 (0.0-0.8) K/mm3 Eos # (Auto) 0.1 (0.0-0.4) K/mm3 Baso # (Auto) 0.0 (0.0-0.1) K/mm3 Seg Neutrophils % 60.9 (40.0-70.0) % Seg Neutrophils # 5.0 (1.8-7.7) K/mm3 Sodium 143 (137-145) mmol/L Potassium 4.2 (3.6-5.0) mmol/L Chloride 107.8 H (98-107) mmol/L Carbon Dioxide 25 (22-30) mmol/L Anion Gap 14 mmol/L BUN 17 (7-17) mg/dL Creatinine 1.4 H (0.6-1.2) mg/dL Estimated GFR 45 ml/min BUN/Creatinine Ratio 12 % Glucose 104 H (65-100) mg/dL Calcium 9.5 (8.4-10.2) mg/dL Total Bilirubin 0.40 (0.1-1.2) mg/dL AST 12 (5-40) units/L ALT 10 (7-56) units/L Alkaline Phosphatase 74 (35-129) units/L Troponin T < 0.010 < 0.010 (0.00-0.029) ng/mL Total Protein 6.7 (6.3-8.2) g/dL Albumin 4.4 (3.9-5) g/dL Albumin/Globulin Ratio 1.9 % Lipase 18 (13-60) units/L - EKG Data EKG shows normal: sinus rhythm, axis, intervals, QRS complexes Rate: normal - EKG Data 06/04/20 18:14 Nonspecific T wave inversion and noncontiguous leads No STEMI - Radiology Data Radiology results: report reviewed Ordering Physician: KENYETTA JIMENEZ Date of Service: 06/04/20 Procedure(s): XR chest routine 2V Accession Number(s): [id number] cc: KENYETTA JIMENEZ Fluoro Time In Minutes: CHEST 2 VIEWS INDICATION: Chest Pain. COMPARISON: 12/25/2019 FINDINGS: Support devices: None. Heart: Within normal limits. Lungs/pleura: No acute air space or interstitial disease. No pneumothorax. Stable linear scarring in the lingula. Additional findings: None. IMPRESSION: No acute findings. Signer Name: Mt Baker Jr, MD Signed: 06/04/2020 12:52 PM Workstation Name: [id number] Transcribed By: TTR Dictated By: MT BAKER JR, MD Electronically Authenticated By: MT BAKER JR, MD Signed Date/Time: 06/04/20 1252 DD/ 1251 TD/TT: - Medical Decision Making Patient is a 70-year-old female who presents emergency room complaints of hypertension. She states that her log manager has her on spironolactone 25 mg daily, she states over the last couple weeks that her blood pressure has been fluctuating. She states that a couple days ago her log manager increase her spironolactone from 25 mg daily to 50 mg daily. 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 She states that last night her blood pressure was again fluctuating and it was 220/110 and 174/100. She states that she called her [facility] manager clinic and spoke with a nurse and they advised her to be seen in the emergency department. She states that her only symptoms last night was that she had a lot of increased gas and belching and felt like she had some mild palpitations. She denies any symptoms at all currently. She denies any chest pain, shortness of breath, leg swelling, headache, vision changes, numbness, weakness. She has a past medical history of CKD, G6PD,and hypertension. She has an allergy to Percocet, ciprofloxacin, levofloxacin, morphine, sulfa. vitals are stable, BP is 165/83. Labs with stable renal function from prior. Troponin is negative x2. EKG without evidence of STEMI or ischemia. CXR: No acute findings. Discussed all results with patient and answered questions. Patient is asymptomatic. She has no signs of hypertension urgency or emergency. Discussed the importance of follow-up. Advised patient Please continue taking the medication as prescribed by your doctors. Please keep a blood pressure log and take this to your doctor. Eat a low-sodium diet. Incorporate 30 to 60 minutes of walking daily. Return to emergency room for any new or worsening symptoms. Critical care attestation.: If time is entered above; I have spent that time in minutes in the direct care of this critically ill patient, excluding procedure time. ED Disposition Clinical Impression: Renal insufficiency HTN (hypertension) Qualifiers: Hypertension type: unspecified Qualified Code(s): I10 - Essential (primary) hypertension Disposition: - TO HOME OR SELFCARE Is pt being admited?: No Does the pt Need Aspirin: No Condition: Stable Instructions: Hypertension, Adult, Wemh-fr-Sith, Low-Sodium Eating Plan, Managing Your Hypertension, Hypertension (ED) Additional Instructions: Please continue taking the medication as prescribed by your doctors. Please keep a blood pressure log and take this to your doctor. Eat a low-sodium diet. Incorporate 30 to 60 minutes of walking daily. Return to emergency room for any new or worsening symptoms. Referrals: JASON BOOGIE FNP-BC [Primary Care Provider] - 2-3 Days your, log manager [Other] - 2-3 Days Time of Disposition: 18:15 Print Language: CITIZEN OF [place]
[2020-06-04 18:22] VITALS: BP 160/76
== END 2020-06-04 18:28 | disposition home or self-care (01) ==
LOC: ED 11:23
DX: I10 Essential (primary) hypertension (principal); N28.9 Disorder of kidney and ureter, unspecified; E11.9 Type 2 diabetes mellitus without complications; M19.90 Unspecified osteoarthritis, unspecified site; Z90.49 Acquired absence of other specified parts of digestive tract; Z98.890 Other specified postprocedural states; Z79.899 Other long term (current) drug therapy; Z90.710 Acquired absence of both cervix and uterus
CPT/HCPCS: 36415; 71046; 80053; 83690; 84484; 85025; 93005; 99283

== ENCOUNTER 2021-03-20 09:34 | Emergency (ER) | payer MEDICARE ==
[2021-03-20] MEDS ORDERED: SODIUM CHLORIDE 0.9% 1000 ML 1,000 ML IV ONE (11:23)
[2021-03-20] MEDS ORDERED: ACETAMINOPHEN W/CODEINE 300-30 MG TAB PO ONE (11:23)
--- NOTE | 2021-03-20 11:50 | Emergency Department Report ---
- General Chief Complaint: Upper Respiratory Infection Stated Complaint: FEVER WON'T GO DOWN Time Seen by Provider: 03/20/21 10:27 Source: patient Mode of arrival: Ambulatory Limitations: No Limitations - History of Present Illness Initial Comments: 70-year-old female with a past medical history of TIA, hypertension, stage IV kidney disease, not currently on dialysis and mild COPD presents to the ER today with complaints of just not feeling well. Patient states that symptoms started a couple days ago. She reports sore throat, headache, body aches, productive cough, wheezing, and anterior chest pain when she coughs and also upper back pain when she coughs. He reports some shortness of breath secondary to her COPD but she denies any worsening shortness of breath since she has been sick. She states that she been having fever, highest was 100.9 and she has been taking Ty lenol but it does not seemed to be helping. She states that due to her kidney disease she is unable to take any NSAIDs. She states that she does not have any of her inhalers. She denies any apparent ill contacts or recent travel. She states that she took a home COVID-19 test yesterday was negative. She states that she did get her Pfizer vaccine in July, has not received her booster dose yet and she did get a flu vaccine February 27. MD Complaint: fever, cough, sore throat, rhinorrhea, nasal congestion -: days(s) - Related Data Previous Rx's Medication Instructions Recorded Last Taken Type Meclizine [Antivert] 25 mg PO TID PRN #15 tablet 10/20/19 Unknown Rx Acetaminophen [Acetaminophen 8 650 mg PO Q8HR #30 tablet.er 03/20/21 Unknown Rx Hour] Albuterol Mdi (or & Nicu Only) 2 puff IH QID PRN #8.5 gram 03/20/21 Unknown Rx [ProAir HFA Inhaler] Benzonatate [Tessalon Perles] 100 mg PO Q8HR #30 capsule 03/20/21 Unknown Rx Allergies Allergy/AdvReac Type Severity Reaction Status Date / Time acetaminophen [From Percocet] Allergy Anaphylaxis Verified 03/20/21 09:39 aspirin Allergy Rash Verified 03/20/21 09:39 ciprofloxacin [From Cipro] Allergy Dizziness Verified 03/20/21 09:39 ciprofloxacin HCl Allergy Dizziness Verified 03/20/21 09:39 [From Cipro] levofloxacin [From Levaquin] Allergy Dizziness Verified 03/20/21 09:39 morphine Allergy Itching Verified 03/20/21 09:39 oxycodone HCl [From Percocet] Allergy Anaphylaxis Verified 03/20/21 09:39 Sulfa (Sulfonamide Allergy Seizure Verified 03/20/21 09:39 Antibiotics) ED Review of Systems ROS: Stated complaint: FEVER WON'T GO DOWN Other details as noted in HPI Comment: All other systems reviewed and negative Constitutional: fever ENT: congestion, other (rhinorrhea) Respiratory: cough, wheezing. denies: shortness of breath, SOB with exertion, SOB at rest Cardiovascular: chest pain (Secondary to cough). denies: palpitations, dyspnea on exertion, orthopnea, edema, syncope, paroxysmal nocturnal dyspnea Gastrointestinal: denies: abdominal pain, nausea, diarrhea, melena, hematochezia Genitourinary: denies: urgency, dysuria, frequency, hematuria, discharge, abnormal menses, dyspareunia Musculoskeletal: myalgia. denies: back pain, joint swelling, arthralgia Skin: denies: rash, lesions, change in color, change in hair/nails, pruritus Neurological: headache. denies: weakness, numbness, paresthesias, confusion, abnormal gait, vertigo Psychiatric: denies: anxiety, depression, auditory hallucinations, visual hallucinations, homicidal thoughts, suicidal thoughts Hematological/Lymphatic: denies: easy bleeding, easy bruising ED Past Medical Hx - Past Medical History Hx Hypertension: Yes Hx CVA: Yes (TIA) Hx Congestive Heart Failure: No Hx Diabetes: Yes Hx Renal Disease: Yes Hx Arthritis: Yes Hx Asthma: No Hx COPD: Yes Additional medical history: glaucoma. high cholesterol. G6PD. heart murmur/ MVP. OBESITY, Blind in left eye - Surgical History Hx Cholecystectomy: Yes Additional Surgical History: Hysterectomy 2011. - Social History Smoking Status: Never Smoker Substance Use Type: None - Medications Home Medications: Home Medications Medication Instructions Recorded Confirmed Last Taken Type Meclizine [Antivert] 25 mg PO TID PRN #15 tablet 10/20/19 Unknown Rx Acetaminophen [Acetaminophen 8 650 mg PO Q8HR #30 tablet.er 03/20/21 Unknown Rx Hour] Albuterol Mdi (or & Nicu Only) 2 puff IH QID PRN #8.5 gram 03/20/21 Unknown Rx [ProAir HFA Inhaler] Benzonatate [Tessalon Perles] 100 mg PO Q8HR #30 capsule 03/20/21 Unknown Rx ED Physical Exam - General Limitations: No Limitations General appearance: alert, in no apparent distress - Head Head exam: Present: atraumatic, normocephalic, normal inspection - Eye Eye exam: Present: normal appearance, PERRL, EOMI Pupils: Present: normal accommodation - ENT ENT exam: Present: normal exam, mucous membranes moist - Neck Neck exam: Present: normal inspection, full ROM - Respiratory Respiratory exam: Present: normal lung sounds bilaterally, chest wall tenderness. Absent: respiratory distress, wheezes, rales, rhonchi, stridor - Cardiovascular Cardiovascular Exam: Present: regular rate, normal rhythm, normal heart sounds - GI/Abdominal GI/Abdominal exam: Present: soft. Absent: distended, tenderness, guarding, rebound - Neurological Exam Neurological exam: Present: alert, oriented X3, CN II-XII intact, normal gait - Psychiatric Psychiatric exam: Present: normal affect, normal mood - Skin Skin exam: Present: intact ED Course Vital Signs 03/20/21 09:38 Temperature 100.0 F H Pulse Rate 78 Respiratory 16 Rate Blood Pressure 117/94 O2 Sat by Pulse 96 Oximetry ED Medical Decision Making - Lab Data Result diagrams: 03/20/21 12:07 03/20/21 12:07 - Radiology Data Radiology results: report reviewed Patient: DOMENIC COBB MR#: [id number] : 1950 Acct:[id number] Age/Sex: 70 / F ADM Date: 03/20/21 Loc: ED Attending Dr: Ordering Physician: KENYETTA JIMENEZ Date of Service: 03/20/21 Procedure(s): XR chest routine 2V Accession Number(s): [id number] cc: KENYETTA JIMENEZ Fluoro Time In Minutes: CHEST 2 VIEWS INDICATION / CLINICAL INFORMATION: cough/fever. COMPARISON: 06/04/2020 FINDINGS: SUPPORT DEVICES: None. HEART / MEDIASTINUM: No significant abnormality. LUNGS / PLEURA: No significant pulmonary or pleural abnormality. No pneumothorax. ADDITIONAL FINDINGS: No significant additional findings. IMPRESSION: 1. No acute findings. Signer Name: Maury Goddard MD Signed: 03/20/2021 11:44 AM Workstation Name: [id number] Transcribed By: ADAMS Dictated By: Maury Goddard MD Electronically Authenticated By: Maury Goddard MD Signed Date/Time: 03/20/211143 DD/ 43 TD/TT: Critical care attestation.: If time is entered above; I have spent that time in minutes in the direct care of this critically ill patient, excluding procedure time. ED Disposition Clinical Impression: Viral syndrome, Chronic renal insufficiency Disposition: HOME / SELF CARE / HOMELESS Is pt being admited?: No Does the pt Need Aspirin: No Condition: Stable Instructions: Viral Illness, Adult Additional Instructions: Rapid flu today was negative. Chest x-ray did not show anything. Your labs did not show anything critical. Symptoms are likely related to a nonspecific viral illness at this time but it could still be related to Covid. Sometimes at home COVID-19 kits can be false, and so I do recommend that she get a PCR test that a local pharmacy or urgent care. In the meantime I do recommend that she continue to remain hydrated by drinking lots of fluids, take the Tessalon Perles to help with any coughing, rest, and continue taking the Tylenol as needed for fever or pain. I do recommend that you follow-up with your primary care doctor next week. If at any time your symptoms worsens return to the ER. Prescriptions: Acetaminophen [Acetaminophen 8 Hour] 650 mg PO Q8HR #30 tablet.er Albuterol Mdi (or & Nicu Only) [ProAir HFA Inhaler] 2 puff IH QID PRN #8.5 gram PRN Reason: Shortness Of Breath Benzonatate [Tessalon Perles] 100 mg PO Q8HR #30 capsule Referrals: PRIMARY CARE, [Primary Care Provider] - 3-5 Days Time of Disposition: 14:07
[2021-03-20 12:39] LABS: Hematocrit 36.5 % (30.3-42.9); Hemoglobin 11.5 gm/dl (10.1-14.3); Mean Corpuscular HGB Conc 32 % (30-34); Mean Corpuscular Volume 96 fl (79-97); Platelet Count 235 K/mm3 (140-440)
[2021-03-20 12:50] LABS: Albumin 4.5 g/dL (3.9-5); Calcium 9.3 mg/dL (8.4-10.2)
[2021-03-20 13:46] LABS: Platelet Estimate Consistent w Auto; Total Cells Counted 100
[2021-03-20 14:39] VITALS: BP 118/67
== END 2021-03-20 14:43 | disposition home or self-care (01) ==
LOC: ED 09:34
DX: B34.9 Viral infection, unspecified (principal); I12.9 Hypertensive chronic kidney disease with stage 1 through stage 4 chronic kidney disease, or unspecified chronic kidney disease; E11.22 Type 2 diabetes mellitus with diabetic chronic kidney disease; N18.9 Chronic kidney disease, unspecified; M19.90 Unspecified osteoarthritis, unspecified site; Z90.710 Acquired absence of both cervix and uterus; Z88.6 Allergy status to analgesic agent; Z88.1 Allergy status to other antibiotic agents; Z88.5 Allergy status to narcotic agent; Z88.8 Allergy status to other drugs, medicaments and biological substances; Z79.899 Other long term (current) drug therapy
CPT/HCPCS: 36415; 71046; 80053; 85007; 85025; 87400; 96360; 99284; J7030; Q0162

== ENCOUNTER 2021-05-25 10:37 | Emergency (ER) | payer MEDICARE ==
--- NOTE | 2021-05-25 12:01 | Emergency Department Report ---
ED Female HPI - General Chief complaint: Vaginal Bleeding Stated complaint: VAGINAL BLEEDING Time Seen by Provider: 05/25/21 11:49 Source: patient Mode of arrival: Ambulatory Limitations: No Limitations - History of Present Illness Initial comments: Patient presents secondary to vaginal bleeding over the last couple of days. For the last 2 to 3 days she has noticed a brownish discharge in the depends. She believed it was blood. Today, she noticed bright red blood. She came here for evaluation and treatment. She is worried that she may have cancer. She has not noticed hematuria. She has been bleeding from her gums occasionally when she brushes her teeth. She is not anticoagulated. There is no family history of coagulopathy. Patient is not sure if she has cancer or not but that is her biggest fear. She actually had a hysterectomy done approximately 10 years ago. Regardless, she is concerned about the vaginal bleeding. There is no pain associated with this. There is no trauma. - Related Data Previous Rx's Medication Instructions Recorded Last Taken Type Meclizine [Antivert] 25 mg PO TID PRN #15 tablet 10/20/19 Unknown Rx Acetaminophen [Acetaminophen 8 650 mg PO Q8HR #30 tablet.er 03/20/21 Unknown Rx Hour] Albuterol Mdi (or & Nicu Only) 2 puff IH QID PRN #8.5 gram 03/20/21 Unknown Rx [ProAir HFA Inhaler] Benzonatate [Tessalon Perles] 100 mg PO Q8HR #30 capsule 03/20/21 Unknown Rx Estrogens, Conjugated [Premarin] 1 applicator VG QHS #1 tube 05/25/21 Unknown Rx Allergies Allergy/AdvReac Type Severity Reaction Status Date / Time acetaminophen [From Percocet] Allergy Anaphylaxis Verified 03/20/21 09:39 aspirin Allergy Rash Verified 03/20/21 09:39 ciprofloxacin [From Cipro] Allergy Dizziness Verified 03/20/21 09:39 ciprofloxacin HCl Allergy Dizziness Verified 03/20/21 09:39 [From Cipro] levofloxacin [From Levaquin] Allergy Dizziness Verified 03/20/21 09:39 morphine Allergy Itching Verified 03/20/21 09:39 oxycodone HCl [From Percocet] Allergy Anaphylaxis Verified 03/20/21 09:39 Sulfa (Sulfonamide Allergy Seizure Verified 03/20/21 09:39 Antibiotics) ED Review of Systems ROS: Stated complaint: VAGINAL BLEEDING Other details as noted in HPI Comment: All other systems reviewed and negative Constitutional: denies: fever Eyes: denies: vision change ENT: denies: epistaxis Respiratory: denies: cough Cardiovascular: denies: chest pain Endocrine: denies: unexplained weight loss Gastrointestinal: denies: abdominal pain Musculoskeletal: denies: back pain Skin: denies: rash Neurological: denies: headache Hematological/Lymphatic: denies: easy bruising ED Past Medical Hx - Past Medical History Hx Hypertension: Yes Hx CVA: Yes (TIA) Hx Congestive Heart Failure: No Hx Diabetes: Yes Hx Renal Disease: Yes Hx Arthritis: Yes Hx Asthma: No Hx COPD: Yes Additional medical history: glaucoma. high cholesterol. G6PD. heart murmur/ MVP. OBESITY, Blind in left eye - Surgical History Hx Cholecystectomy: Yes Additional Surgical History: Hysterectomy 2011. - Family History Family history: hypertension - Social History Smoking Status: Never Smoker Substance Use Type: None - Medications Home Medications: Home Medications Medication Instructions Recorded Confirmed Last Taken Type Meclizine [Antivert] 25 mg PO TID PRN #15 tablet 10/20/19 Unknown Rx Acetaminophen [Acetaminophen 8 650 mg PO Q8HR #30 tablet.er 03/20/21 Unknown Rx Hour] Albuterol Mdi (or & Nicu Only) 2 puff IH QID PRN #8.5 gram 03/20/21 Unknown Rx [ProAir HFA Inhaler] Benzonatate [Tessalon Perles] 100 mg PO Q8HR #30 capsule 03/20/21 Unknown Rx Estrogens, Conjugated [Premarin] 1 applicator VG QHS #1 tube 05/25/21 Unknown Rx ED Physical Exam - General Limitations: No Limitations, Other (Pulse ox noted and normal) General appearance: alert, in no apparent distress, anxious - Head Head exam: Present: atraumatic, normocephalic, normal inspection - Eye Eye exam: Present: normal appearance, PERRL, EOMI. Absent: scleral icterus - ENT ENT exam: Present: normal orophraynx, normal external ear exam - Neck Neck exam: Present: normal inspection. Absent: tenderness, meningismus - Respiratory Respiratory exam: Present: normal lung sounds bilaterally. Absent: respiratory distress - Cardiovascular Cardiovascular Exam: Present: regular rate, normal rhythm - GI/Abdominal GI/Abdominal exam: Present: soft. Absent: distended, tenderness - External exam: Present: normal external exam Speculum exam: Present: other (Atrophic and friable vaginal canal) - Extremities Exam Extremities exam: Present: normal capillary refill - Back Exam Back exam: Absent: CVA tenderness (R), CVA tenderness (L) - Neurological Exam Neurological exam: Present: alert, oriented X3, CN II-XII intact, normal gait. Absent: motor sensory deficit - Psychiatric Psychiatric exam: Present: normal affect, normal mood - Skin Skin exam: Present: warm, dry ED Course Vital Signs 05/25/21 11:19 Temperature 98.2 F Pulse Rate 56 L Respiratory 18 Rate Blood Pressure 134/71 O2 Sat by Pulse 96 Oximetry - Reevaluation(s) Reevaluation #1: 05/25/21 12:00 Labs and pelvic exam were ordered. Old records reviewed. Reevaluation #2: 05/25/21 13:38 Speculum exam was completed with female licensed physical therapist assistant. UA is pending. ED Medical Decision Making - Lab Data Result diagrams: 05/25/21 12:17 05/25/21 12:17 Critical Care Time: No Critical care attestation.: If time is entered above; I have spent that time in minutes in the direct care of this critically ill patient, excluding procedure time. ED Disposition Clinical Impression: Vaginal bleeding, Atrophic vaginitis Disposition: 01 HOME / SELF CARE / HOMELESS Is pt being admited?: No Condition: Stable Instructions: Atrophic Vaginitis, [id number] Additional Instructions: Drink fluids. Return for problems. Follow-up with your family doctor or voyage management system operator. Return for any problems or concerns. Prescriptions: Estrogens, Conjugated [Premarin] 1 applicator VG QHS #1 tube Referrals: PRIMARY CARE, [Primary Care Provider] - 3-5 Days DAVE JIMENEZ MD [Staff Physician] - 3-5 Days
[2021-05-25 12:36] LABS: Hematocrit 35.3 % (30.3-42.9); Hemoglobin 11.3 gm/dl (10.1-14.3); Mean Corpuscular HGB Conc 32 % (30-34); Mean Corpuscular Volume 96 fl (79-97); Platelet Count 241 K/mm3 (140-440); Red Blood Count 3.68 M/mm3 (3.65-5.03); Red Cell Distribution Width 13.6 % (13.2-15.2)
[2021-05-25 14:00] LABS: Bacteria,Urine 1+ /HPF (Negative); Bilirubin,Urine NEG (Negative); Blood,Urine LG (Negative); Color,Urine Yellow (Yellow); Urobilinogen,Urine < 2.0 mg/dL (<2.0)
[2021-05-25 14:02] LABS: WBC,Urine > 182.0 /HPF (0.0-6.0)
[2021-05-25 15:32] VITALS: BP 164/100
== END 2021-05-25 15:32 | disposition home or self-care (01) ==
LOC: ED 10:37
DX: N93.9 Abnormal uterine and vaginal bleeding, unspecified (principal); N95.2 Postmenopausal atrophic vaginitis; I10 Essential (primary) hypertension; E11.9 Type 2 diabetes mellitus without complications; Z88.6 Allergy status to analgesic agent; Z88.2 Allergy status to sulfonamides; Z88.1 Allergy status to other antibiotic agents; Z88.5 Allergy status to narcotic agent
CPT/HCPCS: 36415; 80048; 81001; 85027; 99283